=== PATIENT | female | born 1965 | race Caucasian/White ===

== ENCOUNTER 2016-10-24 16:38 | Emergency (ER) | payer MEDICARE, OTHER ==
[~2016-10-24] VITALS: Ht 172.7 cm; Wt 112.0 kg
[~2016-10-24 16:38] MED LIST: ALBU2.5V5 IH; ALBU8.5H6 IH; BUDE10.2 IH; CYCL10TA2 PO; DULO60CA44 PO; HYDR-2758 PO; MELO15TA23 PO; OMEP20CA9 PO; OMEP40CA5 PO; PRED20TA PO; TIOT18CA IH
[2016-10-24] MEDS ORDERED: IV NORMAL SALINE 1000ML BAG 1,000 ML IV SCH (17:16)
--- NOTE | 2016-10-24 17:25 | PHYS DOC ---
Past Medical History Past Medical History: Anxiety, Arthritis, Asthma, COPD, Depression, Gallstones , GERD, Hypertension Additional Past Medical Histor: DDD Past Surgical History: Cholecystectomy, Tubal ligation, Other Additional Past Surgical Histo: eye, teeth extraction Smoking: Cigarettes, Greater than 1 pack/day Alcohol Use: None Drug Use: None Adult General Chief Complaint Chief Complaint: SHORTNESS OF BREATH HPI HPI Patient is a 51 year old pleasant female with a history of COPD and asthma and a chronic smoking history who presents with shortness of breath that began several weeks ago was persistently gotten worse last 3 days. She describes tightness across her chest with a nonproductive cough no fevers no chills but has had some URI like symptoms runny nose and itching around her eyes. She has had sick contacts at home as her grandchildren but visiting with her and she is gotten progressively more short of breath despite using her albuterol nebulizer treatments at home. Last dose of prednisone was more than 6 months ago, she denies any recent travel outside the country, recent antibiotic use, recent chest pain change in medications other complaints. She denies nausea, vomiting, diarrhea. She does have a mild frontal headache that is worse with coughing and bending over. It is not new not worse of life not sudden onset in nature. She denies any focal neurologic changes, vision changes, blurred vision or problems speaking or finding words. Differential diagnosis: Acute myocardial ischemia, heart failure, cardiac tamponade, bronchospasm, pulmonary embolism, pneumothorax, pulmonary infection i.e. bronchitis or pneumonia, upper airway obstruction, anaphylaxis, aspiration , psychogenic, pulmonary contusion, toxidrome, pneumomediastinum, noncardiogenic pulmonary edema or ARDS, COPD, tuberculosis, cystic fibrosis, asthma, high altitude pulmonary edema, valvular dysfunction, cardiac dysrhythmia , stroke, neuromuscular diseases like myasthenia gravis gravis, ALS, Guillain- Nix syndrome, metabolic acidosis to include diabetic ketoacidosis, sepsis, and obstructive disorders like massive obesity As point she I will complete a cardiac workup to include EKG, troponin, CMP, CBC chest x-ray I will give her nebulizer treatments, Solu-Medrol fluids and possible antibiotics for bronchitis versus COPD exacerbation. Review of Systems Review of Systems Constitutional: Subjective fevers and chills but nothing measured Eyes: Denies change in visual acuity, redness, or eye pain [] HENT: No nasal congestion no sore throat other than with cough. Respiratory: She has a nonproductive cough and shortness of breath with exertion. Cardiovascular: No additional information not addressed in HPI [] GI: Denies abdominal pain, nausea, vomiting, bloody stools or diarrhea [] : Denies dysuria or hematuria [] Musculoskeletal: Denies back pain or joint pain [] Integument: Denies rash or skin lesions [] Neurologic: She complains of a frontal headache with no change in vision no focal weakness or sensory changes. Current Medications Current Medications Current Medications Medications (Trade) Dose Ordered Sig/Jazzy Start Time Stop Time Status Last Admin Dose Admin Albuterol Sulfate (Ventolin Neb Soln) 2.5 mg 1X ONCE 10/24/16 17:30 10/24/16 17:31 DC 10/24/16 17:41 2.5 MG Albuterol/ Ipratropium (Duoneb) 3 ml 1X ONCE 10/24/16 17:30 10/24/16 17:31 DC 10/24/16 17:41 3 ML Azithromycin (Zithromax) 500 mg 1X ONCE 10/24/16 19:30 10/24/16 19:31 Methylprednisolone Sodium Succinate (SOLU-Medrol 125MG VIAL) 125 mg 1X ONCE 10/24/16 17:30 10/24/16 17:31 DC 10/24/16 17:55 125 MG Sodium Chloride 1,000 ml @ 1,000 mls/hr Q1H 10/24/16 17:16 10/24/16 18:15 DC 10/24/16 17:56 1,000 MLS/HR Sodium Chloride (Normal Saline Flush) 10 ml 1X ONCE 10/24/16 17:30 10/24/16 17:31 DC Allergies Allergies Allergies Coded Allergies Type Severity Reaction Last Updated Verified Sulfa (Sulfonamide Antibiotics) Allergy Intermediate 05/02/15 Yes coconut oil Allergy Intermediate COCONUT 08/10/13 Yes ibuprofen Allergy Intermediate 05/02/15 Yes adhesive Adverse Reaction Mild Rash 08/10/13 Yes Physical Exam Physical Exam Constitutional: Well developed, morbidly obese female in mild respiratory distress with tachypnea greater than 24 no retractions no accessory muscle use satting 95% on 2 L nasal cannulas. HENT: Normocephalic, atraumatic, bilateral external ears normal, very dry mucous murmurings with poor dentition. Eyes: PERRLA, EOMI, conjunctiva normal, no discharge. Is mild erythema around the inferior portion of the right eyelid secondary to abrasions self infected scratching. Neck: Normal range of motion, no tenderness, supple, no stridor. [] Cardiovascular:Heart rate regular rhythm, no murmur [] Lungs & Thorax: Decreased breath sounds bilaterally with mild wheezing throughout all lung head. No rhonchi rales or crackles noted Abdomen: Bowel sounds normal, soft, no tenderness, Skin: Warm, dry, no erythema, no rash. [] Back: No tenderness, no CVA tenderness. [] Extremities: No tenderness, no cyanosis, no clubbing, ROM intact, no edema. [] Neurologic: Alert and oriented X 3, normal motor function, normal sensory function, no focal deficits noted. [] Psychologic: She is anxious but appropriate Current Patient Data Vital Signs Vital Signs Date Time Temp Pulse Resp B/P (MAP) Pulse Ox O2 Delivery O2 Flow Rate FiO2 10/24/16 18:15 92 14 153/88 (109) 10/24/16 17:52 98 Nasal Cannula 10/24/16 17:20 98.4 98.4 Lab Values Laboratory Tests Test 10/24/16 17:40 White Blood Count 18.3 x10^3/uL (4.0-11.0) H Red Blood Count 4.87 x10^6/uL (3.50-5.40) Hemoglobin 14.7 g/dL (12.0-15.5) Hematocrit 44.4 % (36.0-47.0) Mean Corpuscular Volume 91 fL (79-100) Mean Corpuscular Hemoglobin 30 pg (25-35) Mean Corpuscular Hemoglobin Concent 33 g/dL (31-37) Red Cell Distribution Width 13.6 % (11.5-14.5) Platelet Count 346 x10^3/uL (140-400) Neutrophils (%) (Auto) 62 % (31-73) Lymphocytes (%) (Auto) 31 % (24-48) Monocytes (%) (Auto) 4 % (0-9) Eosinophils (%) (Auto) 3 % (0-3) Basophils (%) (Auto) 1 % (0-3) Neutrophils # (Auto) 11.3 x10^3uL (1.8-7.7) H Lymphocytes # (Auto) 5.6 x10^3/uL (1.0-4.8) H Monocytes # (Auto) 0.6 x10^3/uL (0.0-1.1) Eosinophils # (Auto) 0.5 x10^3/uL (0.0-0.7) Basophils # (Auto) 0.2 x10^3/uL (0.0-0.2) Sodium Level 139 mmol/L (136-145) Potassium Level 3.3 mmol/L (3.5-5.1) L Chloride Level 102 mmol/L (98-107) Carbon Dioxide Level 28 mmol/L (21-32) Anion Gap 9 (6-14) Blood Urea Nitrogen 10 mg/dL (7-20) Creatinine 1.1 mg/dL (0.6-1.0) H Estimated GFR (Cockcroft-Gault) 52.2 BUN/Creatinine Ratio 9 (6-20) Glucose Level 194 mg/dL (70-99) H Calcium Level 8.9 mg/dL (8.5-10.1) Total Bilirubin 0.4 mg/dL (0.2-1.0) Aspartate Amino Transferase (AST) 32 U/L (15-37) Alanine Aminotransferase (ALT) 47 U/L (14-59) Alkaline Phosphatase 136 U/L (46-116) H Creatine Kinase 531 U/L (26-192) H Creatine Kinase MB (Mass) 2.2 ng/mL (0.0-3.6) Creatine Kinase MB Relative Index 0.4 % (0-4) Troponin I Quantitative < 0.017 ng/mL (0.000-0.055) HS-Ldw-M-Type Natriuretic Peptide 113 pg/mL (0-124) Total Protein 7.6 g/dL (6.4-8.2) Albumin 3.2 g/dL (3.4-5.0) L Albumin/Globulin Ratio 0.7 (1.0-1.7) L Laboratory Tests 10/24/16 17:40 Laboratory Tests 10/24/16 17:40 EKG EKG EKG time 1726 date 10/24/[address] Mcgee demonstrates heart rate of 92 normal sinus rhythm with some movement artifact is noted in the inferior leads there is T-wave flattening in lead 1 and lead 2 with a Q-wave possibly represent an old injury. No new ST segment or T-wave changes consistent with acute cord syndrome at this time. [] Radiology/Procedures Radiology/Procedures []x time 1732 two-view and lateral chest film date 10/24/2016 temperature is no acute infiltrate no hyperinflation, no evidence of subdiaphragmatic air no cardiomegaly no pneumothorax images read by Dr. Mcgee Course & Med Decision Making Course & Med Decision Making Pertinent Labs and Imaging studies reviewed. (See chart for details) View nursing notes which demonstrates mild relative hypoxia and tachypnea which is likely from COPD hypertension as well which is chronic for patient. Reviewed physical exam findings as well as history incorporation with laboratory work. Patient's troponin is negative patient has no evidence of congestive heart failure on physical exam or by proBNP. Patient's white blood cell count is elevated 18,000 which likely is due to stress. No obvious infiltrate on chest x- ray. []Differential diagnosis: Acute myocardial ischemia, heart failure, cardiac tamponade, bronchospasm, pulmonary embolism, pneumothorax, pulmonary infection i.e. bronchitis or pneumonia, upper airway obstruction, anaphylaxis, aspiration , psychogenic, pulmonary contusion, toxidrome, pneumomediastinum, noncardiogenic pulmonary edema or ARDS, COPD, tuberculosis, cystic fibrosis, asthma, high altitude pulmonary edema, valvular dysfunction, cardiac dysrhythmia , stroke, neuromuscular diseases like myasthenia gravis gravis, ALS, Guillain- Nix syndrome, metabolic acidosis to include diabetic ketoacidosis, sepsis, and obstructive disorders like massive obesity Answered with this patient. Patient tells me that their symptoms given during CC are improved. We reviewed labs and radiology reports with patient and any family at bedside. Time is now 6 :30 PM patient's symptoms have improved airway movement satting 98% on room air patient comfortable resting on the cot. Patient tells me that their symptoms given during CC are improved. We reviewed labs and radiology reports with patient and any family at bedside. Time is now 7 :30 PM patiently released home chest x-ray is negative. Discussed treatment plan with treatment plan to include azithromycin, albuterol, and prednisone burst with PCP follow-up in 12-24 hours. Precautions given Impression: COPD exacerbation, hypertension chronic PCP follow-up in 12-24 hours. Disposition PCP follow-up Dragon Disclaimer Dragon Disclaimer This electronic medical record was generated, in whole or in part, using a voice recognition dictation system. Departure Departure Impression: Primary Impression: COPD exacerbation Additional Impression: Hypertension Disposition: HOME, SELF-CARE Condition: IMPROVED Referrals: CESARIO MACKEY MD (PCP) Patient Instructions: Bronchitis, Chronic Obstructive Pulmonary Disease Additional Instructions: She is to follow-up with her primary care doctor in next 12-24 hours if symptoms continue. I've encouraged her to quit smoking as smoking's clinic continued to exacerbate her breathing issues. She will be provided a course of antibiotics to include azithromycin, prednisone burst, and albuterol inhaler with spacer. Problem Qualifiers CESAR MCGEE MD Oct 24, 2016 17:25
[2016-10-24] MEDS ORDERED: 0.9 % SODIUM CHLORIDE 10 ML DISP.SYRIN. IV ONE (17:30)
[2016-10-24] MEDS ORDERED: IPRATRPIUM/ALBUTEROL 0.5/2.5MG 3 ML NEBU. NEB ONE (17:30)
[2016-10-24] MEDS ORDERED: methylPREDNISolone SOD SUCC PF 125 MG/2 ML VIAL. IV ONE (17:30)
[2016-10-24] MEDS ORDERED: ALBUTEROL SULFATE 2.5 MG/3 ML NEBU. NEB ONE (17:30)
[2016-10-24 17:51] LABS: BASO # 0.2 x10^3/uL (0.0-0.2); BASO % 1 % (0-3); EOS % 3 % (0-3); HEMATOCRIT 44.4 % (36.0-47.0); HEMOGLOBIN 14.7 g/dL (12.0-15.5); LYMPH # 5.6 x10^3/uL (1.0-4.8); LYMPH % 31 % (24-48); MEAN CORPUSCULAR HEMOGLOBIN 30 pg (25-35); MEAN CORPUSCULAR HGB CONC 33 g/dL (31-37); MEAN CORPUSCULAR VOLUME 91 fL (79-100); MONO % 4 % (0-9); NEUT % 62 % (31-73); PLATELET COUNT 346 x10^3/uL (140-400); RED BLOOD COUNT 4.87 x10^6/uL (3.50-5.40); RED CELL DISTRIBUTION WIDTH 13.6 % (11.5-14.5); WHITE BLOOD COUNT 18.3 x10^3/uL (4.0-11.0)
[2016-10-24 18:10] LABS: CALCIUM 8.9 mg/dL (8.5-10.1); CREATININE 1.1 mg/dL (0.6-1.0); GFR 52.2; POTASSIUM 3.3 mmol/L (3.5-5.1)
[2016-10-24 18:15] LABS: ALBUMIN 3.2 g/dL (3.4-5.0); ALBUMIN/GLOBULIN RATIO 0.7 (1.0-1.7); TOTAL BILIRUBIN 0.4 mg/dL (0.2-1.0); TOTAL PROTEIN 7.6 g/dL (6.4-8.2)
[2016-10-24 18:33] LABS: CKMB MASS 2.2 ng/mL (0.0-3.6)
[2016-10-24] MEDS ORDERED: AZITHROMYCIN 250 MG TABLET. PO ONE (19:30)
[2016-10-24 20:01] VITALS: BP 140/74
[2016-10-24 20:02] LABS: OBC FLU VALID
--- NOTE | 2016-10-25 07:36 | EKG ---
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
--- NOTE | 2016-10-25 07:56 | RAD ---
Indication: Cough and shortness of breath. Time of exam 1732 hours. Correlation is made with prior chest from 04/29/2015. FINDINGS: The heart size is normal. The lungs are clear. No pleural effusion or pneumothorax is identified. The pulmonary vascularity is normal. IMPRESSION: No acute abnormality detected.
== END 2016-10-24 20:01 | disposition home or self-care (01) ==
LOC: ER 16:38
DX: J44.1 Chronic obstructive pulmonary disease with (acute) exacerbation (principal); I10 Essential (primary) hypertension; F41.9 Anxiety disorder, unspecified; K21.9 Gastro-esophageal reflux disease without esophagitis; F32.9 Major depressive disorder, single episode, unspecified; M19.90 Unspecified osteoarthritis, unspecified site; F17.210 Nicotine dependence, cigarettes, uncomplicated; Z90.49 Acquired absence of other specified parts of digestive tract; Z98.51 Tubal ligation status; Z88.2 Allergy status to sulfonamides; Z91.048 Other nonmedicinal substance allergy status; Z88.8 Allergy status to other drugs, medicaments and biological substances; Z88.6 Allergy status to analgesic agent
CPT/HCPCS: 36415; 71020; 80053; 82553; 83880; 84484; 85027; 87804; 93005; 94250; 94640; 96361; 96374; 99285; J2930; J7030; J7620; Q0144

== ENCOUNTER 2017-02-24 22:28 | Emergency (ER) | payer MEDICARE ==
[~2017-02-24] VITALS: Ht 167.6 cm; Wt 112.0 kg
--- NOTE | 2017-02-24 23:09 | PHYS DOC ---
Past Medical History Past Medical History: COPD, GERD, Other Additional Past Medical Histor: chronic pain Past Surgical History: Tubal ligation Additional Past Surgical Histo: eye, teeth extraction Alcohol Use: None Drug Use: Marijuana Adult General Chief Complaint Chief Complaint: FLANK PAIN HPI HPI Patient is a 52 year old female who presents with complaints of left flank pain that radiates to her left mid abdomen. Patient also describes foul- smelling urine. She denies any chills, fevers, rashes. Patient denies any trauma or sick contacts. Patient has chronic back pain but states this pain is different than others. Patient denies any incontinence, retention, saddle anesthesia. Review of Systems Review of Systems Constitutional: Denies fever or chills [] HENT: Denies nasal congestion or sore throat [] Respiratory: Denies cough or shortness of breath [] Cardiovascular: No chest pain GI: Left flank pain that radiates to left mid abdomen. No vomiting, no diarrhea : Denies dysuria or hematuria. Yes to foul-smelling urine Musculoskeletal: Yes to left back pain Integument: Denies rash or skin lesions [] Neurologic: Denies headache, focal weakness or sensory changes [] Current Medications Current Medications Current Medications Medications (Trade) Dose Ordered Sig/Jazzy Start Time Stop Time Status Last Admin Dose Admin Ceftriaxone Sodium 1 gm/ Sodium Chloride 50 ml @ 100 mls/hr Q24H 02/25/17 00:15 UNV Fentanyl Citrate (Fentanyl 2ml Vial) 75 mcg 1X ONCE 02/24/17 23:15 02/24/17 23:16 DC 02/25/17 00:01 75 MCG Ketorolac Tromethamine (Toradol) 15 mg 1X ONCE 02/24/17 23:15 02/24/17 23:16 DC Allergies Allergies Allergies Coded Allergies Type Severity Reaction Last Updated Verified Sulfa (Sulfonamide Antibiotics) Allergy Intermediate 05/02/15 Yes coconut oil Allergy Intermediate COCONUT 08/10/13 Yes ibuprofen Allergy Intermediate 05/02/15 Yes adhesive Adverse Reaction Mild Rash 08/10/13 Yes Physical Exam Physical Exam Constitutional: Well developed, well nourished, mild distress, non-toxic appearance. [] HENT: Normocephalic, atraumatic, , oropharynx dry, no oral exudates, nose normal. [] Eyes: EOMI, conjunctiva normal, no discharge. [] Neck: Normal range of motion, no tenderness, trachea midline, no stridor. [] Cardiovascular:Heart rate regular rhythm, no murmur, equal pulses, normal perfusion Lungs & Thorax: Bilateral breath sounds clear to auscultation, no tachypnea Abdomen: Bowel sounds normal, soft, no tenderness, no masses, no pulsatile masses. [] Skin: Warm, dry, no erythema, no rash. [] Back: No tenderness. mild left CVA tenderness. [] Extremities: No tenderness, no cyanosis,, ROM intact, no edema. [] Neurologic: Alert and oriented X 3, normal motor function, ambulates in the ED with normal gait and without assistance, no focal deficits noted. [] Psychologic: Affect normal, judgement normal, mood normal. [] Current Patient Data Vital Signs Vital Signs Date Time Temp Pulse Resp B/P (MAP) Pulse Ox O2 Delivery O2 Flow Rate FiO2 02/25/17 00:01 18 97 02/24/17 22:40 98.3 85 109/64 (79) Room Air 98.3 Lab Values Laboratory Tests Test 02/24/17 22:45 02/24/17 23:16 Urine Collection Type Unknown Urine Color Yellow Urine Clarity Clear Urine pH 6.0 Urine Specific [place] 1.020 Urine Protein Negative mg/dL (NEG-TRACE) Urine Glucose (UA) Negative mg/dL (NEG) Urine Ketones (Stick) Negative mg/dL (NEG) Urine Blood Trace (NEG) Urine Nitrite Positive (NEG) Urine Bilirubin Negative (NEG) Urine Urobilinogen Dipstick 0.2 mg/dL (0.2 mg/dL) Urine Leukocyte Esterase Moderate (NEG) Urine RBC 1-2 /HPF (0-2) Urine WBC 20-40 /HPF (0-4) Urine Squamous Epithelial Cells Few /LPF Urine Bacteria Many /HPF (0-FEW) Urine Mucus Mod /LPF White Blood Count 16.6 x10^3/uL (4.0-11.0) H Red Blood Count 5.22 x10^6/uL (3.50-5.40) Hemoglobin 16.0 g/dL (12.0-15.5) H Hematocrit 47.3 % (36.0-47.0) H Mean Corpuscular Volume 91 fL (79-100) Mean Corpuscular Hemoglobin 31 pg (25-35) Mean Corpuscular Hemoglobin Concent 34 g/dL (31-37) Red Cell Distribution Width 14.0 % (11.5-14.5) Platelet Count 402 x10^3/uL (140-400) H Neutrophils (%) (Auto) 53 % (31-73) Lymphocytes (%) (Auto) 38 % (24-48) Monocytes (%) (Auto) 4 % (0-9) Eosinophils (%) (Auto) 4 % (0-3) H Basophils (%) (Auto) 0 % (0-3) Neutrophils # (Auto) 8.8 x10^3uL (1.8-7.7) H Lymphocytes # (Auto) 6.3 x10^3/uL (1.0-4.8) H Monocytes # (Auto) 0.7 x10^3/uL (0.0-1.1) Eosinophils # (Auto) 0.7 x10^3/uL (0.0-0.7) Basophils # (Auto) 0.1 x10^3/uL (0.0-0.2) Sodium Level 140 mmol/L (136-145) Potassium Level 3.6 mmol/L (3.5-5.1) Chloride Level 101 mmol/L (98-107) Carbon Dioxide Level 35 mmol/L (21-32) H Anion Gap 4 (6-14) L Blood Urea Nitrogen 10 mg/dL (7-20) Creatinine 0.9 mg/dL (0.6-1.0) Estimated GFR (Cockcroft-Gault) 65.5 Glucose Level 118 mg/dL (70-99) H Calcium Level 9.2 mg/dL (8.5-10.1) Laboratory Tests 02/24/17 23:16 Laboratory Tests 02/24/17 23:16 EKG EKG [] Radiology/Procedures Radiology/Procedures CT: Enlarged liver with diffuse fatty infiltration. No renal calculi or evidence of obstructive uropathy.[] Course & Med Decision Making Course & Med Decision Making Pertinent Labs and Imaging studies reviewed. (See chart for details) 0020 patient in no distress, patient agrees to follow-up as directed. Patient has been made aware productive findings and CT as well as labs. Patient has been provided with tobacco cessation counseling, total time 3 minutes. Risk and benefits explained. [] Dragon Disclaimer Dragon Disclaimer This electronic medical record was generated, in whole or in part, using a voice recognition dictation system. Departure Departure Impression: Primary Impression: Pyelonephritis Additional Impressions: Fatty liver Tobacco abuse Tobacco abuse counseling Disposition: HOME, SELF-CARE Condition: STABLE Referrals: CESARIO MACKEY MD (PCP) Please follow-up in 3-5 days Patient Instructions: Pyelonephritis, Adult, Smoking Hazards Scripts Metoclopramide Hcl (REGLAN) 10 Mg Tablet 1 TAB PO TID Y for NAUSEA, #10 TAB Prov: Chloe MCKINNEY MD 02/25/17 Ciprofloxacin Hcl (CIPRO) 500 Mg Tablet 1 TAB PO BID, #20 TAB Prov: Chloe MCKINNEY MD 02/25/17 Problem Qualifiers Chloe MCKINNEY MD Feb 24, 2017 23:09
[2017-02-24 23:15] LABS: BILIRUBIN,URINE NEGATIVE (NEG); GLUCOSE,URINE NEGATIVE (NEG); NITRITE,URINE POSITIVE (NEG); PROTEIN,URINE NEGATIVE (NEG-TRACE); UROBILINOGEN,URINE 0.2 mg/dL (0.2 mg/dL)
[2017-02-24] MEDS ORDERED: fentaNYL PF VIAL 100 MCG/2 ML VIAL IV ONE (23:15)
[2017-02-24] MEDS ORDERED: KETOROLAC 15 MG/ML VIAL. IV ONE (23:15)
[2017-02-24 23:25] LABS: WBC,URINE 20-40 /HPF (0-4)
[2017-02-24 23:26] LABS: BACTERIA,URINE MANY /HPF (0-FEW); SQUAMOUS EPITHELIAL CELL,UR FEW /LPF
[2017-02-24 23:28] LABS: BASO # 0.1 x10^3/uL (0.0-0.2); BASO % 0 % (0-3); EOS % 4 % (0-3); HEMATOCRIT 47.3 % (36.0-47.0); LYMPH # 6.3 x10^3/uL (1.0-4.8); LYMPH % 38 % (24-48); MEAN CORPUSCULAR HEMOGLOBIN 31 pg (25-35); MEAN CORPUSCULAR HGB CONC 34 g/dL (31-37); MEAN CORPUSCULAR VOLUME 91 fL (79-100); MONO % 4 % (0-9); NEUT % 53 % (31-73); PLATELET COUNT 402 x10^3/uL (140-400); RED BLOOD COUNT 5.22 x10^6/uL (3.50-5.40); WHITE BLOOD COUNT 16.6 x10^3/uL (4.0-11.0)
[2017-02-24 23:36] LABS: CALCIUM 9.2 mg/dL (8.5-10.1); CREATININE 0.9 mg/dL (0.6-1.0); GFR 65.5; POTASSIUM 3.6 mmol/L (3.5-5.1)
--- NOTE | 2017-02-24 23:42 | RAD ---
CT abdomen and pelvis without contrast: Reason for examination: Left flank and abdominal pain. Helical images were obtained through the abdomen and pelvis with no intravenous or oral contrast administered. Reconstruction was performed in sagittal and coronal planes. Exposure: One or more of the following individualized dose reduction techniques were utilized for this examination: 1. Automated exposure control 2. Adjustment of the mA and/or kV according to patient size 3. Use of iterative reconstruction technique. The lung bases are clear. The heart size is normal with no pericardial effusion seen. The liver appears to be enlarged at 21.5 cm and shows diffuse fatty infiltration without a focal lesion. The gallbladder surgically absent. No abnormality seen at the spleen, adrenal glands or pancreas. The abdominal aorta and inferior vena cava show no abnormalities. The kidneys show no renal masses, renal calculi, hydronephrosis or evidence of obstructive uropathy. The intestinal tract shows no abnormally dilated loops of bowel or thickened bowel dodd. There is no evidence of diverticulosis or diverticulitis. No abnormality seen at the stomach. The bladder is not distended. No abnormality seen at the uterus or ovaries. No free fluid or free air is seen in the abdomen or pelvis. There are some degenerative changes in the spine but no acute bony abnormality seen. IMPRESSION: Enlarged liver with diffuse fatty infiltration. No renal calculi or evidence of obstructive uropathy. Electronically signed by: Bianka Nixon MD (02/24/2017 11:39 PM) [id number]
[2017-02-25] MEDS ORDERED: METO10TA81 PO (00:27)
[2017-02-25] MEDS ORDERED: CIPR500T94 PO (00:27)
[2017-02-25 01:37] VITALS: BP 132/77
== END 2017-02-25 01:43 | disposition home or self-care (01) ==
LOC: ER 22:28
DX: N12 Tubulo-interstitial nephritis, not specified as acute or chronic (principal); K76.0 Fatty (change of) liver, not elsewhere classified; K21.9 Gastro-esophageal reflux disease without esophagitis; J44.9 Chronic obstructive pulmonary disease, unspecified; G89.29 Other chronic pain; Z90.49 Acquired absence of other specified parts of digestive tract; F17.200 Nicotine dependence, unspecified, uncomplicated; Z98.51 Tubal ligation status; Z88.2 Allergy status to sulfonamides; Z88.8 Allergy status to other drugs, medicaments and biological substances; Z91.018 Allergy to other foods
CPT/HCPCS: 36415; 74176; 80048; 81001; 85025; 87086; 96365; 96375; 99285; J0696; J1885; J3010

== ENCOUNTER 2017-04-03 16:48 | Emergency (ER) | payer MEDICARE ==
[~2017-04-03] VITALS: Ht 170.2 cm; Wt 107.5 kg
[~2017-04-03 16:48] MED LIST changes: +CIPR500T94 PO; +METO10TA81 PO
[2017-04-03] MEDS ORDERED: IPRATRPIUM/ALBUTEROL 0.5/2.5MG 3 ML NEBU. NEB ONE (17:15)
[2017-04-03] MEDS ORDERED: methylPREDNISolone SOD SUCC PF 125 MG/2 ML VIAL. IV ONE (17:15)
[2017-04-03 17:20] LABS: BASO # 0.3 x10^3/uL (0.0-0.2); BASO % 2 % (0-3); EOS % 4 % (0-3); HEMOGLOBIN 16.2 g/dL (12.0-15.5); LYMPH # 4.4 x10^3/uL (1.0-4.8); LYMPH % 31 % (24-48); MEAN CORPUSCULAR HEMOGLOBIN 31 pg (25-35); MEAN CORPUSCULAR HGB CONC 34 g/dL (31-37); MEAN CORPUSCULAR VOLUME 91 fL (79-100); MONO % 4 % (0-9); NEUT % 60 % (31-73); PLATELET COUNT 377 x10^3/uL (140-400); RED BLOOD COUNT 5.19 x10^6/uL (3.50-5.40); RED CELL DISTRIBUTION WIDTH 13.7 % (11.5-14.5); WHITE BLOOD COUNT 14.1 x10^3/uL (4.0-11.0)
[2017-04-03 17:27] VITALS: BP 125/73
[2017-04-03 17:32] LABS: CALCIUM 8.7 mg/dL (8.5-10.1); POTASSIUM 3.6 mmol/L (3.5-5.1)
[2017-04-03 17:37] LABS: ALBUMIN 3.3 g/dL (3.4-5.0); ALBUMIN/GLOBULIN RATIO 0.7 (1.0-1.7); TOTAL BILIRUBIN 0.4 mg/dL (0.2-1.0)
[2017-04-03] MEDS ORDERED: PRED20TA PO (18:05)
[2017-04-03] MEDS ORDERED: AZIT250T6 PO (18:05)
--- NOTE | 2017-04-03 18:06 | PHYS DOC ---
Past Medical History Past Medical History: COPD, GERD, Other Additional Past Medical Histor: chronic pain Past Surgical History: Tubal ligation Additional Past Surgical Histo: eye, teeth extraction Alcohol Use: Occasionally Drug Use: Marijuana Adult General Chief Complaint Chief Complaint: COUGH HPI HPI Patient is a 52 year old female with a history of COPD who presents with increasing cough and shortness of air for 1-2 days. Patient attributes this to being out in the cold air yesterday. Patient has felt hot and cold but has not had a measured fever. She has a nebulizer at home and takes albuterol treatments , she has taken about 8 of them today. She also takes a steroid inhaler. She has not been on oral steroids lately. Her last antibiotic was appropriate. Patient continues to smoke. Her primary care doctor is Dr. Cesario Fernandez. Review of Systems Review of Systems Constitutional: She has felt hot and cold HENT: Denies nasal congestion or sore throat [] Respiratory: As in history of present illness Cardiovascular: Denies cardiac sounding chest pain GI: Denies abdominal pain, nausea, vomiting, bloody stools or diarrhea [] All other systems were reviewed and found to be within normal limits, except as documented in this note. Current Medications Current Medications Current Medications Medications (Trade) Dose Ordered Sig/Jazzy Start Time Stop Time Status Last Admin Dose Admin Albuterol/ Ipratropium (Duoneb) 3 ml 1X ONCE 04/03/17 17:15 04/03/17 17:16 DC 04/03/17 17:26 3 ML Methylprednisolone Sodium Succinate (SOLU-Medrol 125MG VIAL) 60 mg 1X ONCE 04/03/17 17:15 04/03/17 17:16 DC 04/03/17 17:19 60 MG Allergies Allergies Allergies Coded Allergies Type Severity Reaction Last Updated Verified Sulfa (Sulfonamide Antibiotics) Allergy Intermediate 05/02/15 Yes coconut oil Allergy Intermediate COCONUT 08/10/13 Yes ibuprofen Allergy Intermediate 05/02/15 Yes adhesive Adverse Reaction Mild Rash 08/10/13 Yes Physical Exam Physical Exam Constitutional: Well developed, well nourished, no acute distress, non-toxic appearance. Talking in complete sentences but does appear slightly dyspneic. Pulse ox on room air 94-95%. Vital signs stable. HENT: Normocephalic, atraumatic, bilateral external ears normal, nose normal. [ ] Eyes: conjunctiva normal, no discharge. [] Neck: Normal range of motion, no stridor. [] Cardiovascular:Heart rate regular rhythm, no murmur [] Lungs & Thorax: Breath sounds present bilaterally. Expiratory wheezes present throughout. Prolonged expiratory phase. Good air movement throughout. Skin: Warm, dry, no erythema, no rash. [] Extremities: No tenderness, no cyanosis, no clubbing, ROM intact, no edema. [] Neurologic: Alert and oriented X 3, normal motor function, no focal deficits noted. [] Current Patient Data Vital Signs Vital Signs Date Time Temp Pulse Resp B/P (MAP) Pulse Ox O2 Delivery O2 Flow Rate FiO2 04/03/17 17:29 96 Room Air 04/03/17 17:27 99 23 125/73 (90) 04/03/17 17:03 98.7 98.7 Lab Values Laboratory Tests Test 04/03/17 17:10 White Blood Count 14.1 x10^3/uL (4.0-11.0) H Red Blood Count 5.19 x10^6/uL (3.50-5.40) Hemoglobin 16.2 g/dL (12.0-15.5) H Hematocrit 47.0 % (36.0-47.0) Mean Corpuscular Volume 91 fL (79-100) Mean Corpuscular Hemoglobin 31 pg (25-35) Mean Corpuscular Hemoglobin Concent 34 g/dL (31-37) Red Cell Distribution Width 13.7 % (11.5-14.5) Platelet Count 377 x10^3/uL (140-400) Neutrophils (%) (Auto) 60 % (31-73) Lymphocytes (%) (Auto) 31 % (24-48) Monocytes (%) (Auto) 4 % (0-9) Eosinophils (%) (Auto) 4 % (0-3) H Basophils (%) (Auto) 2 % (0-3) Neutrophils # (Auto) 8.4 x10^3uL (1.8-7.7) H Lymphocytes # (Auto) 4.4 x10^3/uL (1.0-4.8) Monocytes # (Auto) 0.5 x10^3/uL (0.0-1.1) Eosinophils # (Auto) 0.5 x10^3/uL (0.0-0.7) Basophils # (Auto) 0.3 x10^3/uL (0.0-0.2) H Sodium Level 139 mmol/L (136-145) Potassium Level 3.6 mmol/L (3.5-5.1) Chloride Level 101 mmol/L (98-107) Carbon Dioxide Level 31 mmol/L (21-32) Anion Gap 7 (6-14) Blood Urea Nitrogen 9 mg/dL (7-20) Creatinine 1.0 mg/dL (0.6-1.0) Estimated GFR (Cockcroft-Gault) 58.0 BUN/Creatinine Ratio 9 (6-20) Glucose Level 134 mg/dL (70-99) H Calcium Level 8.7 mg/dL (8.5-10.1) Total Bilirubin 0.4 mg/dL (0.2-1.0) Aspartate Amino Transferase (AST) 25 U/L (15-37) Alanine Aminotransferase (ALT) 42 U/L (14-59) Alkaline Phosphatase 137 U/L (46-116) H Total Protein 8.0 g/dL (6.4-8.2) Albumin 3.3 g/dL (3.4-5.0) L Albumin/Globulin Ratio 0.7 (1.0-1.7) L Laboratory Tests 04/03/17 17:10 Laboratory Tests 04/03/17 17:10 EKG EKG [] Radiology/Procedures Radiology/Procedures One view portable chest x-ray read by the radiologist. No acute findings.[] Course & Med Decision Making Course & Med Decision Making Pertinent Labs and Imaging studies reviewed. (See chart for details) 52-year-old female, smoker, with a history of COPD, presents with increasing shortness of air and cough for 1-2 days. On my original assessment, the patient clearly stated that she does not want to be admitted. If this was Wednesday, she would have waited until tomorrow to see her primary care doctor, she stated, but it is Wednesday so she doesn't think she wants to wait that long. Patient has not recently had antibiotics and has not recently had oral steroids. She would like to try both. She does have a nebulizer at home and she has albuterol for her nebulizer. Patient was given a nebulized DuoNeb treatment. She was given a dose of IV Solu- Medrol. She remained stable, and feeling a little bit better. Recheck, she still wants to be discharged to home. See instructions for plan. [] Zo Disclaimer Dragon Disclaimer This electronic medical record was generated, in whole or in part, using a voice recognition dictation system. Departure Departure Impression: Primary Impression: COPD exacerbation Disposition: HOME, SELF-CARE Condition: IMPROVED Referrals: CESARIO FERNANDEZ MD (PCP) Patient Instructions: Chronic Obstructive Pulmonary Disease Exacerbation, Easy- to-Read, Smoking, You Can Quit, [id number] Additional Instructions: As we discussed, if you could quit smoking, that would help your lungs slight off infection. Talk to your doctor about this. Stay inside out of the cold air. Drink plenty of fluids. Continue to use your steroid inhaler and also take breathing treatments regularly. Prednisone dose as follows: Wednesday night, ton 20 mg 20 mg every morning and every night for 4 more days, Wednesday, Wednesday, Wednesday, Wednesday 20 mg every morning and 10 mg every night for 2 more days, and Wednesday 10 mg in the morning and 10 mg at night for 2 more days, Wednesday and Wednesday 10 mg in the morning only for the last 2 days, Wednesday and Wednesday Scripts Azithromycin (AZITHROMYCIN TABLET) 250 Mg Tablet 1 PKG PO UD for copd excaerbation, #6 TAB Prov: TRENTON CAGE MD 04/03/17 Prednisone (PREDNISONE) 20 Mg Tablet 20 MG PO BID for copd exacerbation for 10 Days, #40 TAB Taper as directed on instructions 20 mg Wednesday night 40 mg a day, divided, for 4 days 30 mg a day, divided, for 2 days 20 mg a day, divided, for 2 days 10 mg a day for 2 days Prov: TRENTON CAGE MD 04/03/17 TRENTON CAGE MD Apr 03, 2017 18:06
--- NOTE | 2017-04-04 08:01 | RAD ---
EXAM: Chest, single view. HISTORY: Productive cough. COMPARISON: 10/24/2016. FINDINGS: A frontal view of the chest is obtained. There is no infiltrate, effusion or pneumothorax. The heart is normal in size. IMPRESSION: No acute pulmonary finding.
[2017-04-04] MEDS ORDERED: METF500T4 PO (11:59)
[2017-04-04] MEDS ORDERED: HYDR-2762 PO (11:59)
== END 2017-04-03 18:27 | disposition home or self-care (01) ==
LOC: ER 16:48
DX: J44.1 Chronic obstructive pulmonary disease with (acute) exacerbation (principal); K21.9 Gastro-esophageal reflux disease without esophagitis; G89.29 Other chronic pain; Z98.51 Tubal ligation status; Z88.2 Allergy status to sulfonamides; Z88.8 Allergy status to other drugs, medicaments and biological substances; Z91.018 Allergy to other foods
CPT/HCPCS: 36415; 71010; 80053; 85025; 94250; 94640; 96374; 99285; J2930; J7620

== ENCOUNTER 2017-04-04 08:17 | Inpatient (IN) | payer MEDICARE ==
[~2017-04-04] VITALS: Ht 170.2 cm; Wt 109.9 kg
[~2017-04-04 08:17] MED LIST changes: +AZIT250T6 PO
--- NOTE | 2017-04-04 08:37 | PHYS DOC ---
Past Medical History Past Medical History: COPD, GERD, Other Additional Past Medical Histor: chronic pain Past Surgical History: Tubal ligation Additional Past Surgical Histo: eye, teeth extraction Alcohol Use: Occasionally Drug Use: Marijuana Adult General Chief Complaint Chief Complaint: SHORTNESS OF BREATH HPI HPI Patient is a 52 year old F who presents with shortness of breath and wheezing. Patient has a known history of COPD with significant smoking and was seen here last night for a COPD exacerbation and discharged home. Patient returns this morning for worsening shortness of breath and wheezing. Patient states she's been doing her nebulizer treatments at home however this morning she was having more difficulty breathing. Patient denies any fevers. Patient denies any chest pain. Patient does have a productive cough with clear mucus. Patient denies any nausea/vomiting/diarrhea. Patient has no other complaints. Review of Systems Review of Systems GEN: Denies fevers, chills, sweats HEENT: Denies blurred vision, sore throat CV: Denies chest pain RESP: Wheezing GI: Denies n/v/d NEURO: Denies confusion, dizziness MSK: Denies weakness, joint pain/swelling All other systems were reviewed and found to be within normal limits, except as documented in this note. Current Medications Current Medications Current Medications Medications (Trade) Dose Ordered Sig/Jazzy Start Time Stop Time Status Last Admin Dose Admin Albuterol/ Ipratropium (Duoneb) 3 ml 1X ONCE 04/04/17 08:45 04/04/17 08:46 DC 04/04/17 09:18 3 ML Dexamethasone Sodium Phosphate (Decadron) 10 mg 1X ONCE 04/04/17 08:45 04/04/17 08:46 DC 04/04/17 08:53 10 MG Allergies Allergies Allergies Coded Allergies Type Severity Reaction Last Updated Verified Sulfa (Sulfonamide Antibiotics) Allergy Intermediate 05/02/15 Yes coconut oil Allergy Intermediate COCONUT 08/10/13 Yes ibuprofen Allergy Intermediate 05/02/15 Yes adhesive Adverse Reaction Mild Rash 08/10/13 Yes Physical Exam Physical Exam GEN.: mild distress. Alert and oriented. HEENT: Head is normocephalic, atraumatic NECK: Supple. LUNGS: Tachypnea, wheezing bilaterally. HEART: Tachycardia, S1, S2 present. Peripheral pulses intact ABDOMEN: Soft, nontender. Positive bowel sounds. EXTREMITIES: Without any cyanosis. NEUROLOGIC: Normal speech, normal tone PSYCHIATRIC: Normal affect, normal mood. SKIN: No ulcerations Current Patient Data Vital Signs Vital Signs Date Time Temp Pulse Resp B/P (MAP) Pulse Ox O2 Delivery O2 Flow Rate FiO2 04/04/17 09:25 110 22 120/68 (85) 94 Room Air 04/04/17 08:25 97.7 97.7 Lab Values Laboratory Tests Test 04/04/17 08:30 White Blood Count 22.7 x10^3/uL (4.0-11.0) H Red Blood Count 5.56 x10^6/uL (3.50-5.40) H Hemoglobin 16.9 g/dL (12.0-15.5) H Hematocrit 50.9 % (36.0-47.0) H Mean Corpuscular Volume 92 fL (79-100) Mean Corpuscular Hemoglobin 30 pg (25-35) Mean Corpuscular Hemoglobin Concent 33 g/dL (31-37) Red Cell Distribution Width 13.9 % (11.5-14.5) Platelet Count 441 x10^3/uL (140-400) H Neutrophils (%) (Auto) 90 % (31-73) H Lymphocytes (%) (Auto) 8 % (24-48) L Monocytes (%) (Auto) 2 % (0-9) Eosinophils (%) (Auto) 0 % (0-3) Basophils (%) (Auto) 0 % (0-3) Neutrophils # (Auto) 20.4 x10^3uL (1.8-7.7) H Lymphocytes # (Auto) 1.7 x10^3/uL (1.0-4.8) Monocytes # (Auto) 0.5 x10^3/uL (0.0-1.1) Eosinophils # (Auto) 0.0 x10^3/uL (0.0-0.7) Basophils # (Auto) 0.1 x10^3/uL (0.0-0.2) Segmented Neutrophils % 92 % (35-66) H Band Neutrophils % 2 % (0-9) Lymphocytes % 4 % (24-48) L Monocytes % 2 % (0-10) Platelet Estimate Adequate (ADEQUATE) Sodium Level 139 mmol/L (136-145) Potassium Level 4.1 mmol/L (3.5-5.1) Chloride Level 99 mmol/L (98-107) Carbon Dioxide Level 27 mmol/L (21-32) Anion Gap 13 (6-14) Blood Urea Nitrogen 10 mg/dL (7-20) Creatinine 1.2 mg/dL (0.6-1.0) H Estimated GFR (Cockcroft-Gault) 47.0 BUN/Creatinine Ratio 8 (6-20) Glucose Level 196 mg/dL (70-99) H Calcium Level 9.8 mg/dL (8.5-10.1) Total Bilirubin 0.5 mg/dL (0.2-1.0) Aspartate Amino Transferase (AST) 33 U/L (15-37) Alanine Aminotransferase (ALT) 52 U/L (14-59) Alkaline Phosphatase 143 U/L (46-116) H Troponin I Quantitative < 0.017 ng/mL (0.000-0.055) Total Protein 8.9 g/dL (6.4-8.2) H Albumin 3.7 g/dL (3.4-5.0) Albumin/Globulin Ratio 0.7 (1.0-1.7) L Laboratory Tests 04/04/17 08:30 Laboratory Tests 04/04/17 08:30 EKG EKG 1041: EKG shows sinus tach rate of 120 no STEMI[] Radiology/Procedures Radiology/Procedures Chest x-ray NAD[] Course & Med Decision Making Course & Med Decision Making Pertinent Labs and Imaging studies reviewed. (See chart for details) ED course: Patient was seen and examined emergency room chest x-ray and breathing treatments and steroids were ordered for the patient 1000: On reexamination patient still wheezing and tachypnea And she went to stay in the hospital and does not feel she go home 1007: Discussed CC/HP/PMH with Dr. Echavarria and recommends admit [] MDM: After reviewing the chart, CC/HPI/PMH, physical exam, [lab results], [ radiological results], I believe the patient having an acute COPD exacerbation elevated admitted for persistent wheezing. Patient has elevated white count of 22 however has been on recent steroids and at this time I see no signs of acute infectious bacteria process warranting antibiotics. We'll continue to observe the patient however I will not start antibiotics at this time. Patient has no signs or symptoms of pneumonia. [] Dragon Disclaimer Dragon Disclaimer This electronic medical record was generated, in whole or in part, using a voice recognition dictation system. Departure Departure Impression: Primary Impression: COPD exacerbation Disposition: ADMITTED INPATIENT Admitting Physician: Other (Dr. Andres) Condition: STABLE Referrals: CESARIO MACKEY MD (PCP) STEWART THURMAN DO Apr 04, 2017 08:37
[2017-04-04] MEDS ORDERED: DEXAMETHASONE SOD PHOS 4 MG/ML VIAL IV ONE (08:45)
[2017-04-04] MEDS ORDERED: IPRATRPIUM/ALBUTEROL 0.5/2.5MG 3 ML NEBU. NEB ONE (08:45)
--- NOTE | 2017-04-04 08:55 | RAD ---
EXAM: Chest, 2 views. HISTORY: Cough. COMPARISON: 04/03/2017. FINDINGS: Frontal and lateral views of the chest are obtained. There is no infiltrate, effusion or pneumothorax. The heart is normal in size. IMPRESSION: No acute pulmonary finding.
[2017-04-04 10:10] LABS: BASO # 0.1 x10^3/uL (0.0-0.2); BASO % 0 % (0-3); EOS % 0 % (0-3); HEMATOCRIT 50.9 % (36.0-47.0); HEMOGLOBIN 16.9 g/dL (12.0-15.5); LYMPH # 1.7 x10^3/uL (1.0-4.8); LYMPH % 8 % (24-48); MEAN CORPUSCULAR HEMOGLOBIN 30 pg (25-35); MEAN CORPUSCULAR HGB CONC 33 g/dL (31-37); MEAN CORPUSCULAR VOLUME 92 fL (79-100); MONO % 2 % (0-9); NEUT % 90 % (31-73); PLATELET COUNT 441 x10^3/uL (140-400); RED BLOOD COUNT 5.56 x10^6/uL (3.50-5.40); RED CELL DISTRIBUTION WIDTH 13.9 % (11.5-14.5); WHITE BLOOD COUNT 22.7 x10^3/uL (4.0-11.0)
[2017-04-04] MEDS ORDERED: ONDANSETRON PF 4 MG/2 ML VIAL. IV PRN (10:15)
[2017-04-04] MEDS ORDERED: ACETAMINOPHEN 325 MG TABLET. PO PRN (10:15)
[2017-04-04] MEDS ORDERED: fentaNYL PF VIAL 100 MCG/2 ML VIAL IV PRN (10:15)
[2017-04-04 10:17] LABS: CALCIUM 9.8 mg/dL (8.5-10.1); CREATININE 1.2 mg/dL (0.6-1.0); POTASSIUM 4.1 mmol/L (3.5-5.1)
[2017-04-04 10:24] LABS: ALBUMIN 3.7 g/dL (3.4-5.0); ALBUMIN/GLOBULIN RATIO 0.7 (1.0-1.7); TOTAL BILIRUBIN 0.5 mg/dL (0.2-1.0); TOTAL PROTEIN 8.9 g/dL (6.4-8.2)
--- NOTE | 2017-04-04 10:54 | EKG ---
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
[2017-04-04 10:55] LABS: PLT ESTIMATE ADEQUATE (ADEQUATE)
[2017-04-04 11:51] VITALS: BP 106/72
[2017-04-04 11:54] VITALS: BP 106/72
[2017-04-04] MEDS ORDERED: HYDR-2762 PO (11:59)
[2017-04-04] MEDS ORDERED: METF500T4 PO (11:59)
[2017-04-04] MEDS ORDERED: IPRATRPIUM/ALBUTEROL 0.5/2.5MG 3 ML NEBU. NEB SCH (12:00)
[2017-04-04] MEDS ORDERED: DEXTROSE 50% 25 GM / 50ML DISP.SYRIN. IV PRN (12:15)
[2017-04-04] MEDS: ALBUTEROL SULFATE 2.5 MG/3 ML NEBU. NEB SCH ×3 (12:30→20:43)
[2017-04-04] MEDS: CYCLOBENZAPRINE 10 MG TABLET. PO SCH ×2 (13:28→21:16)
[2017-04-04] MEDS: PANTOPRAZOLE 40 MG TABLET.DR. PO SCH (13:28)
[2017-04-04] MEDS: HYDROcodone/APAP 7.5/325MG 1 TAB TABLET PO SCH ×2 (13:28→21:17)
[2017-04-04] MEDS: methylPREDNISolone SOD SUCC PF 40 MG/ML VIAL. IV SCH ×2 (13:28→21:18)
[2017-04-04] MEDS: DULoxetine HCL 30 MG CAPSULE.DR PO SCH (13:28)
[2017-04-04] MEDS: DOXYCYCLINE HYCLATE 100 MG TABLET PO SCH ×2 (13:28→21:16)
[2017-04-04] MEDS: POTASSIUM CL 20MEQ D5-0.45NACL 1,000 ML IV SCH (13:29)
[2017-04-04] MEDS: cefTRIAXone IV Push 1 GM VIAL. IVP SCH (13:43)
[2017-04-04 15:22] VITALS: BP 145/67
--- NOTE | 2017-04-04 16:32 | PDOC1 ---
History and Physical Date of Admission Date of Admission 04/04/17 Identification/Chief Complaint Chief Complaint SOB Problems: Source Source: Chart review, Patient History of Present Illness History of Present Illness Patient is a 52 year old F who presents with shortness of breath and wheezing. Patient has a known history of COPD with significant smoking and was seen here last night for a COPD exacerbation she refused hospitalization and discharged home on ABx and steroids . Patient returns this morning for worsening shortness of breath and wheezing. Patient states she's been doing her nebulizer treatments at home however this morning she was having more difficulty breathing. Patient denies any fevers. Patient denies any chest pain. Patient does have a productive cough with clear mucus. Patient denies any nausea/ vomiting/diarrhea. Patient has no other complaints. Past Medical History Cardiovascular: CAD Pulmonary: Asthma, COPD, Other (sleep apnea) CENTRAL NERVOUS SYSTEM: Migraine GI: GERD, Hemorrhoids, Other (colon polyps removed) Hepatobiliary: Other (obesity) Psych: Bipolar, Depression Rheumatologic: Other (DJD, scoliosis) Renal/: UTI Endocrine: Diabetes Past Surgical History Past Surgical History: Cholecystectomy, Tubal Ligation, Other (teeth extraction ) Family History Family History: Hypertension Social History Smoke: 1 pack per day ALCOHOL: rare Drugs: Marijuana Current Medications Current Medications Current Medications Medications (Trade) Dose Ordered Sig/Jazzy Start Time Stop Time Status Last Admin Dose Admin Acetaminophen (Tylenol) 650 mg PRN Q4HRS PRN 04/04/17 10:15 04/05/17 10:14 Acetaminophen/ Hydrocodone Bitart (Lortab 7.5/325) 1 tab TID 04/04/17 14:00 04/04/17 13:28 1 TAB Albuterol Sulfate (Ventolin Neb Soln) 2.5 mg Q4HRS 04/04/17 12:30 04/04/17 15:01 2.5 MG Albuterol/ Ipratropium (Duoneb) 3 ml RTQID 04/04/17 12:00 04/04/17 12:10 DC 04/04/17 10:33 3 ML Ceftriaxone Sodium 1 gm/ Dextrose 50 ml @ 100 mls/hr Q24H 04/04/17 12:15 UNV Ceftriaxone Sodium (Rocephin) 1 gm Q24H 04/04/17 13:00 04/04/17 13:43 1 GM Cyclobenzaprine HCl (Flexeril) 10 mg TID 04/04/17 14:00 04/04/17 13:28 10 MG Dexamethasone Sodium Phosphate (Decadron) 10 mg 1X ONCE 04/04/17 08:45 04/04/17 08:46 DC 04/04/17 08:53 10 MG Dextrose (Dextrose 50%-Water Syringe) 12.5 gm PRN Q15MIN PRN 04/04/17 12:15 Doxycycline Hyclate (Vibra-Tab) 100 mg BID 04/04/17 12:30 04/04/17 13:28 100 MG Duloxetine HCl (Cymbalta) 60 mg DAILY 04/04/17 13:00 04/04/17 13:28 60 MG Fentanyl Citrate (Fentanyl 2ml Vial) 50 mcg PRN Q1HR PRN 04/04/17 10:15 04/05/17 10:14 Insulin Aspart (NovoLOG) 0-5 UNITS TIDWMEALS 04/04/17 17:00 Lactobacillus Rhamnosus (Culturelle) 1 cap BID 04/04/17 21:00 Metformin HCl (Glucophage) 500 mg BIDWMEALS 04/04/17 17:00 Methylprednisolone Sodium Succinate (SOLU-Medrol 40MG VIAL) 40 mg Q8HRS 04/04/17 14:00 04/04/17 13:28 40 MG Ondansetron HCl (Zofran) 4 mg PRN Q8HRS PRN 04/04/17 10:15 04/05/17 10:14 Pantoprazole Sodium (Protonix) 40 mg DAILYAC 04/04/17 13:00 04/04/17 13:28 40 MG Potassium Chloride/Dextrose/ Sod Cl 1,000 ml @ 75 mls/hr [id number] 04/04/17 13:00 04/04/17 13:29 75 MLS/HR Allergies Allergies Allergies Coded Allergies Type Severity Reaction Last Updated Verified Sulfa (Sulfonamide Antibiotics) Allergy Intermediate 05/02/15 Yes coconut oil Allergy Intermediate COCONUT 08/10/13 Yes ibuprofen Allergy Intermediate 05/02/15 Yes adhesive Adverse Reaction Mild Rash 08/10/13 Yes ROS Review of System CONSTITUTIONAL: No fever or chills EYES: No recent changes SKIN: No rash or itching CARDIOVASCULAR: No chest pain, syncope, palpitations, or edema RESPIRATORY: see HPI GASTROINTESTINAL: No nausea, vomiting or abdominal pain NEUROLOGICAL: No headaches or weakness ENDOCRINE: No cold or heat intolerance GENITOURINARY: No urgency or frequency of urination MUSCULOSKELETAL: has back pain and arthritis LYMPHATICS: No enlarged lymph nodes PSYCHIATRIC: + depression Physical Exam Physical Exam GEN.: No apparent distress. Alert and oriented. HEENT: Head is normocephalic, atraumatic NECK: Supple. LUNGS: bilateral wheezes and coarse BS HEART: RRR, S1, S2 present. Peripheral pulses intact ABDOMEN: Soft, nontender. Positive bowel sounds. EXTREMITIES: Without any cyanosis. NEUROLOGIC: Normal speech, normal tone PSYCHIATRIC: Normal affect, normal mood. SKIN: No ulcerations Vitals Vitals Vital Signs Date Time Temp Pulse Resp B/P (MAP) Pulse Ox O2 Delivery O2 Flow Rate FiO2 04/04/17 15:22 98.2 116 18 145/67 (93) 95 Room Air 98.2 Labs Labs Laboratory Tests Test 04/04/17 08:30 04/04/17 12:28 White Blood Count 22.7 x10^3/uL (4.0-11.0) Red Blood Count 5.56 x10^6/uL (3.50-5.40) Hemoglobin 16.9 g/dL (12.0-15.5) Hematocrit 50.9 % (36.0-47.0) Mean Corpuscular Volume 92 fL (79-100) Mean Corpuscular Hemoglobin 30 pg (25-35) Mean Corpuscular Hemoglobin Concent 33 g/dL (31-37) Red Cell Distribution Width 13.9 % (11.5-14.5) Platelet Count 441 x10^3/uL (140-400) Neutrophils (%) (Auto) 90 % (31-73) Lymphocytes (%) (Auto) 8 % (24-48) Monocytes (%) (Auto) 2 % (0-9) Eosinophils (%) (Auto) 0 % (0-3) Basophils (%) (Auto) 0 % (0-3) Neutrophils # (Auto) 20.4 x10^3uL (1.8-7.7) Lymphocytes # (Auto) 1.7 x10^3/uL (1.0-4.8) Monocytes # (Auto) 0.5 x10^3/uL (0.0-1.1) Eosinophils # (Auto) 0.0 x10^3/uL (0.0-0.7) Basophils # (Auto) 0.1 x10^3/uL (0.0-0.2) Segmented Neutrophils % 92 % (35-66) Band Neutrophils % 2 % (0-9) Lymphocytes % 4 % (24-48) Monocytes % 2 % (0-10) Platelet Estimate Adequate (ADEQUATE) Sodium Level 139 mmol/L (136-145) Potassium Level 4.1 mmol/L (3.5-5.1) Chloride Level 99 mmol/L (98-107) Carbon Dioxide Level 27 mmol/L (21-32) Anion Gap 13 (6-14) Blood Urea Nitrogen 10 mg/dL (7-20) Creatinine 1.2 mg/dL (0.6-1.0) Estimated GFR (Cockcroft-Gault) 47.0 BUN/Creatinine Ratio 8 (6-20) Glucose Level 196 mg/dL (70-99) Calcium Level 9.8 mg/dL (8.5-10.1) Total Bilirubin 0.5 mg/dL (0.2-1.0) Aspartate Amino Transf (AST/SGOT) 33 U/L (15-37) Alanine Aminotransferase (ALT/SGPT) 52 U/L (14-59) Alkaline Phosphatase 143 U/L (46-116) Troponin I Quantitative < 0.017 ng/mL (0.000-0.055) Total Protein 8.9 g/dL (6.4-8.2) Albumin 3.7 g/dL (3.4-5.0) Albumin/Globulin Ratio 0.7 (1.0-1.7) Glucose (Fingerstick) 231 mg/dL (70-99) Laboratory Tests Test 04/04/17 08:30 04/04/17 12:28 White Blood Count 22.7 x10^3/uL (4.0-11.0) Red Blood Count 5.56 x10^6/uL (3.50-5.40) Hemoglobin 16.9 g/dL (12.0-15.5) Hematocrit 50.9 % (36.0-47.0) Mean Corpuscular Volume 92 fL (79-100) Mean Corpuscular Hemoglobin 30 pg (25-35) Mean Corpuscular Hemoglobin Concent 33 g/dL (31-37) Red Cell Distribution Width 13.9 % (11.5-14.5) Platelet Count 441 x10^3/uL (140-400) Neutrophils (%) (Auto) 90 % (31-73) Lymphocytes (%) (Auto) 8 % (24-48) Monocytes (%) (Auto) 2 % (0-9) Eosinophils (%) (Auto) 0 % (0-3) Basophils (%) (Auto) 0 % (0-3) Neutrophils # (Auto) 20.4 x10^3uL (1.8-7.7) Lymphocytes # (Auto) 1.7 x10^3/uL (1.0-4.8) Monocytes # (Auto) 0.5 x10^3/uL (0.0-1.1) Eosinophils # (Auto) 0.0 x10^3/uL (0.0-0.7) Basophils # (Auto) 0.1 x10^3/uL (0.0-0.2) Segmented Neutrophils % 92 % (35-66) Band Neutrophils % 2 % (0-9) Lymphocytes % 4 % (24-48) Monocytes % 2 % (0-10) Platelet Estimate Adequate (ADEQUATE) Sodium Level 139 mmol/L (136-145) Potassium Level 4.1 mmol/L (3.5-5.1) Chloride Level 99 mmol/L (98-107) Carbon Dioxide Level 27 mmol/L (21-32) Anion Gap 13 (6-14) Blood Urea Nitrogen 10 mg/dL (7-20) Creatinine 1.2 mg/dL (0.6-1.0) Estimated GFR (Cockcroft-Gault) 47.0 BUN/Creatinine Ratio 8 (6-20) Glucose Level 196 mg/dL (70-99) Calcium Level 9.8 mg/dL (8.5-10.1) Total Bilirubin 0.5 mg/dL (0.2-1.0) Aspartate Amino Transf (AST/SGOT) 33 U/L (15-37) Alanine Aminotransferase (ALT/SGPT) 52 U/L (14-59) Alkaline Phosphatase 143 U/L (46-116) Troponin I Quantitative < 0.017 ng/mL (0.000-0.055) Total Protein 8.9 g/dL (6.4-8.2) Albumin 3.7 g/dL (3.4-5.0) Albumin/Globulin Ratio 0.7 (1.0-1.7) Glucose (Fingerstick) 231 mg/dL (70-99) VTE Prophylaxis Ordered VTE Prophylaxis Devices: Yes VTE Pharmacological Prophylaxi: Yes Assessment/Plan Assessment/Plan 1- COPD exacerbation 2-obesity/sleep apnea 3-leukocytosis 4-DM II 5-HTN others as per PMH, started Abx , steroid , bronchodilators, advised to quit smoking. Dr. Fernandez will resume care in AM KATHY FERMIN MD Apr 04, 2017 16:32
[2017-04-04] MEDS: INSULIN ASPART 300 UNITS/3 ML INSULN.PEN SQ SCH (18:35)
[2017-04-04] MEDS: metFORMIN 500 MG TABLET PO SCH (18:35)
[2017-04-04 19:55] VITALS: BP 118/72
[2017-04-04] MEDS: LACTOBACILLUS RHAMNOSUS GG 1 CAPSULE. PO SCH (21:16)
[2017-04-04] MEDS: ENOXAPARIN 40 MG/0.4 ML SYRINGE. SQ SCH (21:18)
[2017-04-04 23:18] VITALS: BP 129/61
[2017-04-05] MEDS: ALBUTEROL SULFATE 2.5 MG/3 ML NEBU. NEB SCH ×3 (00:03→07:43)
[2017-04-05] MEDS: POTASSIUM CL 20MEQ D5-0.45NACL 1,000 ML IV SCH (03:09)
[2017-04-05 03:20] VITALS: BP 126/94
[2017-04-05 06:10] LABS: BASO # 0.1 x10^3/uL (0.0-0.2); BASO % 0 % (0-3); EOS % 0 % (0-3); HEMATOCRIT 44.6 % (36.0-47.0); HEMOGLOBIN 14.7 g/dL (12.0-15.5); LYMPH # 2.6 x10^3/uL (1.0-4.8); LYMPH % 8 % (24-48); MEAN CORPUSCULAR HEMOGLOBIN 30 pg (25-35); MEAN CORPUSCULAR HGB CONC 33 g/dL (31-37); MEAN CORPUSCULAR VOLUME 91 fL (79-100); MONO % 4 % (0-9); NEUT % 89 % (31-73); PLATELET COUNT 402 x10^3/uL (140-400); RED BLOOD COUNT 4.88 x10^6/uL (3.50-5.40); RED CELL DISTRIBUTION WIDTH 13.8 % (11.5-14.5); WHITE BLOOD COUNT 34.1 x10^3/uL (4.0-11.0)
[2017-04-05] MEDS: methylPREDNISolone SOD SUCC PF 40 MG/ML VIAL. IV SCH ×3 (06:17→21:04)
[2017-04-05 06:39] LABS: ALBUMIN 3.2 g/dL (3.4-5.0); ALBUMIN/GLOBULIN RATIO 0.7 (1.0-1.7); CALCIUM 9.2 mg/dL (8.5-10.1); CREATININE 1.1 mg/dL (0.6-1.0); TOTAL BILIRUBIN 0.4 mg/dL (0.2-1.0); TOTAL PROTEIN 7.9 g/dL (6.4-8.2)
[2017-04-05 07:00] VITALS: BP_SYST 100; BP_SYST 104; BP_DIAS 68; BP_DIAS 71
[2017-04-05] MEDS: LACTOBACILLUS RHAMNOSUS GG 1 CAPSULE. PO SCH ×2 (08:17→21:03)
[2017-04-05] MEDS: DULoxetine HCL 30 MG CAPSULE.DR PO SCH (08:17)
[2017-04-05] MEDS: HYDROcodone/APAP 7.5/325MG 1 TAB TABLET PO SCH ×3 (08:18→21:03)
[2017-04-05] MEDS: DOXYCYCLINE HYCLATE 100 MG TABLET PO SCH ×2 (08:18→21:02)
[2017-04-05] MEDS: PANTOPRAZOLE 40 MG TABLET.DR. PO SCH (08:18)
[2017-04-05] MEDS: CYCLOBENZAPRINE 10 MG TABLET. PO SCH ×3 (08:18→21:11)
[2017-04-05] MEDS: metFORMIN 500 MG TABLET PO SCH ×2 (08:18→16:35)
[2017-04-05] MEDS: INSULIN ASPART 300 UNITS/3 ML INSULN.PEN SQ SCH ×3 (08:22→16:37)
[2017-04-05] MEDS ORDERED: DULoxetine HCL 30 MG CAPSULE.DR PO SCH (09:00)
--- NOTE | 2017-04-05 09:22 | PDOC ---
Provider Note Provider Note vss, still diffuse wheezes, labs noted - cont same meds CESARIO MACKEY MD Apr 05, 2017 09:22
[2017-04-05 11:00] VITALS: BP 121/73
[2017-04-05] MEDS: IPRATRPIUM/ALBUTEROL 0.5/2.5MG 3 ML NEBU. NEB SCH ×3 (12:21→19:55)
[2017-04-05] MEDS: cefTRIAXone IV Push 1 GM VIAL. IVP SCH (13:15)
[2017-04-05 15:00] VITALS: BP 111/62
[2017-04-05 19:00] VITALS: BP 109/57
[2017-04-05] MEDS: ENOXAPARIN 40 MG/0.4 ML SYRINGE. SQ SCH (21:04)
[2017-04-05 23:54] VITALS: BP 119/72
[2017-04-06] MEDS: ALBUTEROL SULFATE 2.5 MG/3 ML NEBU. NEB PRN ×2 (01:04→04:05)
[2017-04-06 03:00] VITALS: BP 127/81
[2017-04-06] MEDS: methylPREDNISolone SOD SUCC PF 40 MG/ML VIAL. IV SCH ×3 (05:12→21:22)
[2017-04-06 07:00] VITALS: BP 116/71
[2017-04-06] MEDS: CYCLOBENZAPRINE 10 MG TABLET. PO SCH ×3 (07:51→21:19)
[2017-04-06] MEDS: metFORMIN 500 MG TABLET PO SCH ×2 (07:51→16:53)
[2017-04-06] MEDS: DOXYCYCLINE HYCLATE 100 MG TABLET PO SCH (07:51)
[2017-04-06] MEDS: LACTOBACILLUS RHAMNOSUS GG 1 CAPSULE. PO SCH ×2 (07:51→21:18)
[2017-04-06] MEDS: PANTOPRAZOLE 40 MG TABLET.DR. PO SCH (07:52)
[2017-04-06] MEDS: HYDROcodone/APAP 7.5/325MG 1 TAB TABLET PO SCH ×3 (07:52→21:19)
[2017-04-06] MEDS: DULoxetine HCL 30 MG CAPSULE.DR PO SCH (07:54)
[2017-04-06] MEDS: INSULIN ASPART 300 UNITS/3 ML INSULN.PEN SQ SCH ×3 (07:59→17:01)
--- NOTE | 2017-04-06 08:04 | PDOC ---
Provider Note Provider Note vss, no temp, glucose up re steroids- cults neg, go to po antibx, maybe dc in am CESARIO MACKEY MD Apr 06, 2017 08:04
[2017-04-06] MEDS: IPRATRPIUM/ALBUTEROL 0.5/2.5MG 3 ML NEBU. NEB SCH ×4 (08:08→20:47)
[2017-04-06] MEDS: CEFPODOXIME PROXETIL 100 MG TABLET. PO SCH ×2 (08:19→21:19)
[2017-04-06 11:00] VITALS: BP 122/77
[2017-04-06 15:00] VITALS: BP_SYST 129; BP_SYST 136; BP_DIAS 72; BP_DIAS 76
[2017-04-06 19:00] VITALS: BP 123/87
[2017-04-06 23:00] VITALS: BP 131/86
[2017-04-07 03:50] VITALS: BP 110/60
[2017-04-07] MEDS: methylPREDNISolone SOD SUCC PF 40 MG/ML VIAL. IV SCH (05:47)
[2017-04-07 07:00] VITALS: BP 125/87
[2017-04-07] MEDS: IPRATRPIUM/ALBUTEROL 0.5/2.5MG 3 ML NEBU. NEB SCH (07:12)
[2017-04-07] MEDS: metFORMIN 500 MG TABLET PO SCH (07:50)
[2017-04-07] MEDS: CEFPODOXIME PROXETIL 100 MG TABLET. PO SCH (07:50)
[2017-04-07] MEDS: CYCLOBENZAPRINE 10 MG TABLET. PO SCH (07:50)
[2017-04-07] MEDS: DULoxetine HCL 30 MG CAPSULE.DR PO SCH (07:50)
[2017-04-07] MEDS: PANTOPRAZOLE 40 MG TABLET.DR. PO SCH (07:50)
[2017-04-07] MEDS: LACTOBACILLUS RHAMNOSUS GG 1 CAPSULE. PO SCH (07:50)
[2017-04-07] MEDS: HYDROcodone/APAP 7.5/325MG 1 TAB TABLET PO SCH (07:51)
[2017-04-07] MEDS: INSULIN ASPART 300 UNITS/3 ML INSULN.PEN SQ SCH (07:54)
--- NOTE | 2017-04-07 08:00 | DISCH ---
DISCHARGE INSTRUCTIONS Condition on Discharge Condition on Discharge: Stable Activity After Discharge Activity Instructions for Disc: No restrictions Diet after Discharge Diet after Discharge: Regular, Diabetic No Calorie Level Follow-Up Follow up with: CESARIO Rush MD Apr 07, 2017 08:00
--- NOTE | 2017-04-07 08:03 | PDOC ---
Provider Note Provider Note [id number] CESARIO MACKEY MD Apr 07, 2017 08:03
--- NOTE | 2017-04-07 14:22 | DS ---
DATE OF DISCHARGE: 04/07/2017 HOSPITAL SUMMARY: A 52-year-old white female with known COPD with continued tobacco use and type 2 diabetes, came in with an acute exacerbation. Her chest x-ray was clear. White count was elevated at 22,000, sed rate normal. Chemistry profile unremarkable except for mildly elevated blood sugars consistent with steroid-dependent diabetes. Creatinine was 1.2. Blood cultures and urine culture had no growth and the chest x-ray was clear. She was treated with IV steroids, respiratory treatments and Rocephin followed by oral Vantin and seems to be improved at this time and able to be followed as an outpatient. She has remained afebrile with good oxygen saturations. FINAL DIAGNOSIS: Acute exacerbation of chronic obstructive pulmonary disease. OPERATIONS, PROCEDURES, COMPLICATIONS, AND CONSULTATIONS: None. DISPOSITION: Discharged to home on Vantin 200 mg twice a day for 5 more days, prednisone taper over the next 7 days. Rest of home meds remain the same including metformin and inhalers and office followup in 1 week. Continued tobacco avoidance was encouraged. IMMUNIZATIONS: Up-to-date. PROGNOSIS: Guarded. CESARIO MACKEY MD DR: NOVA/aileen JOB#: [id number] / [id number]
== END 2017-04-07 09:27 | disposition home or self-care (01) | DRG 192 ==
LOC: ER 08:17 → 6 SOUTH 10:04
PROVIDERS: ADMIT Family Medicine; ATTEND Family Medicine
DX: J44.1 Chronic obstructive pulmonary disease with (acute) exacerbation (principal); M41.9 Scoliosis, unspecified; E66.9 Obesity, unspecified; E11.9 Type 2 diabetes mellitus without complications; F17.210 Nicotine dependence, cigarettes, uncomplicated; Z68.38 Body mass index [BMI] 38.0-38.9, adult; F31.9 Bipolar disorder, unspecified; G47.30 Sleep apnea, unspecified; I10 Essential (primary) hypertension; I25.10 Atherosclerotic heart disease of native coronary artery without angina pectoris; K21.9 Gastro-esophageal reflux disease without esophagitis; G43.909 Migraine, unspecified, not intractable, without status migrainosus; G89.29 Other chronic pain; M19.90 Unspecified osteoarthritis, unspecified site; F19.11 Other psychoactive substance abuse, in remission; Z90.49 Acquired absence of other specified parts of digestive tract; Z82.49 Family history of ischemic heart disease and other diseases of the circulatory system; Z86.010 Personal history of colon polyps; Z90.710 Acquired absence of both cervix and uterus; Z87.440 Personal history of urinary (tract) infections
CPT/HCPCS: 36415; 71010; 71020; 80053; 82962; 84484; 85007; 85025; 85651; 87040; 87086; 93005; 94250; 94640; 96374; J0696; J1100; J1650; J1815; J2920; J7613; J7620; 99285-25

== ENCOUNTER 2018-03-15 17:57 | Inpatient (IN) | payer MEDICARE ==
[~2018-03-15] VITALS: Ht 171.4 cm; Wt 100.7 kg
[~2018-03-15 17:57] MED LIST changes: +HYDR-2762 PO; +METF500T16 PO
[2018-03-15] MEDS ORDERED: IV NORMAL SALINE 1000ML BAG 1,000 ML IV ONE (18:15)
--- NOTE | 2018-03-15 18:20 | PHYS DOC ---
Past Medical History Past Medical History: Asthma, COPD, GERD, Other Additional Past Medical Histor: chronic pain Past Surgical History: Tubal ligation Additional Past Surgical Histo: eye, teeth extraction Smoking: Less than 1pk/day Alcohol Use: Occasionally Drug Use: Marijuana Adult General Chief Complaint Chief Complaint: SHORTNESS OF BREATH HPI HPI 53-year-old female presents to ER for complaints of increased shortness of air over the past week. Patient reports history of COPD, asthma, and bronchitis and had been seen by her primary care physician 2 weeks ago and was placed on steroids. Patient denies any antibiotic use. Patient reports her breathing symptoms had somewhat improved and then developed GI issues with vomiting and diarrhea last Wednesday through . Patient reports those symptoms improved however her shortness of air and cough increased over the past couple of days. Patient reports today she's had labored respirations with wheezing and chest tightness. Patient reports she smokes half pack per day of cigarettes. Patient denies any recent travel or other family members with similar sxs. Pt reports she has felt clammy denying checking temp. for fever. Patient denies productive cough, swelling in extremities, or abdominal pain. Review of Systems Review of Systems Constitutional: Reports chills. Denies lethargy, fever Eyes: Denies change in visual acuity, redness, or eye pain [] HENT: Denies nasal congestion or sore throat [] Respiratory: Reports nonprod. cough with SOA Cardiovascular: Reports chest tightness GI: Denies abdominal pain, nausea, vomiting, bloody stools or diarrhea. Reports did have N/V/D last week : Denies dysuria or hematuria. Denies change in urinary pattern Musculoskeletal: Reports generalized bodyaches- denies neck stiffness/rigidity Integument: Denies rash, swelling or skin lesions [] Neurologic: Denies headache, focal weakness or sensory changes [] All other systems were reviewed and found to be within normal limits, except as documented in this note. Current Medications Current Medications Current Medications Medications (Trade) Dose Ordered Sig/Jazzy Start Time Stop Time Status Last Admin Dose Admin Albuterol/ Ipratropium (Duoneb) 3 ml 1X ONCE 03/15/18 18:45 03/15/18 18:46 DC 03/15/18 18:42 3 ML Methylprednisolone Sodium Succinate (SOLU-Medrol 125MG VIAL) 125 mg 1X ONCE 03/15/18 18:45 10/23/18 18:46 DC 03/15/18 18:34 125 MG Sodium Chloride 1,000 ml @ 1,000 mls/hr 1X ONCE 03/15/18 18:15 03/15/18 19:14 DC 03/15/18 18:34 1,000 MLS/HR Allergies Allergies Allergies Coded Allergies Type Severity Reaction Last Updated Verified Sulfa (Sulfonamide Antibiotics) Allergy Intermediate 05/02/15 Yes coconut oil Allergy Intermediate COCONUT 08/10/13 Yes ibuprofen Allergy Intermediate 05/02/15 Yes adhesive Adverse Reaction Mild Rash 08/10/13 Yes Physical Exam Physical Exam Constitutional: Well developed, well nourished, mild distress on initial exam with labored respirations, non-toxic appearance. Speaking in full sentences HENT: Normocephalic, atraumatic, bilateral ears normal, mucous membranes pink/ dry, no oral exudates, nose normal. [] Eyes: pupils equal, conjunctiva normal, no discharge. [] Neck: Normal range of motion, no tenderness, supple, no gross adenopathy. Trachea midline Cardiovascular: Tachycardic heart rate/rhythm, no murmur [] Lungs & Thorax: Bilateral expiratory and inspiratory wheezing. Diminished lung sounds throughout all lung head with less air movement in bilateral bases. Respirations equal and labored during exam Abdomen: Bowel sounds normal, soft, no tenderness, no masses, no pulsatile masses. [] Skin: Warm, dry, no erythema, no rash. [] Back: No tenderness, no CVA tenderness. [] Extremities: No tenderness, no cyanosis, no clubbing, ROM intact, no edema. [] Neurologic: Alert and oriented X 3, normal motor function, normal sensory function, no focal deficits noted. [] Psychologic: Affect normal, judgement normal, mood normal. [] Current Patient Data Vital Signs Vital Signs Date Time Temp Pulse Resp B/P (MAP) Pulse Ox O2 Delivery O2 Flow Rate FiO2 03/15/18 19:00 112 111/57 (75) 95 Room Air 03/15/18 18:00 98.3 30 98.3 Lab Values Laboratory Tests Test 03/15/18 18:12 White Blood Count 18.2 x10^3/uL (4.0-11.0) H Red Blood Count 4.48 x10^6/uL (3.50-5.40) Hemoglobin 14.2 g/dL (12.0-15.5) Hematocrit 40.9 % (36.0-47.0) Mean Corpuscular Volume 91 fL (79-100) Mean Corpuscular Hemoglobin 32 pg (25-35) Mean Corpuscular Hemoglobin Concent 35 g/dL (31-37) Red Cell Distribution Width 14.0 % (11.5-14.5) Platelet Count 399 x10^3/uL (140-400) Neutrophils (%) (Auto) 63 % (31-73) Lymphocytes (%) (Auto) 30 % (24-48) Monocytes (%) (Auto) 4 % (0-9) Eosinophils (%) (Auto) 2 % (0-3) Basophils (%) (Auto) 1 % (0-3) Neutrophils # (Auto) 11.5 x10^3uL (1.8-7.7) H Lymphocytes # (Auto) 5.5 x10^3/uL (1.0-4.8) H Monocytes # (Auto) 0.7 x10^3/uL (0.0-1.1) Eosinophils # (Auto) 0.3 x10^3/uL (0.0-0.7) Basophils # (Auto) 0.2 x10^3/uL (0.0-0.2) Sodium Level 138 mmol/L (136-145) Potassium Level 3.1 mmol/L (3.5-5.1) L Chloride Level 99 mmol/L (98-107) Carbon Dioxide Level 30 mmol/L (21-32) Anion Gap 9 (6-14) Blood Urea Nitrogen 7 mg/dL (7-20) Creatinine 1.1 mg/dL (0.6-1.0) H Estimated GFR (Cockcroft-Gault) 51.8 BUN/Creatinine Ratio 6 (6-20) Glucose Level 152 mg/dL (70-99) H Lactic Acid Level 2.2 mmol/L (0.4-2.0) H Calcium Level 8.9 mg/dL (8.5-10.1) Magnesium Level 1.3 mg/dL (1.8-2.4) L Total Bilirubin 0.5 mg/dL (0.2-1.0) Aspartate Amino Transferase (AST) 47 U/L (15-37) H Alanine Aminotransferase (ALT) 54 U/L (14-59) Alkaline Phosphatase 122 U/L (46-116) H Troponin I Quantitative < 0.017 ng/mL (0.000-0.055) Total Protein 7.9 g/dL (6.4-8.2) Albumin 3.0 g/dL (3.4-5.0) L Albumin/Globulin Ratio 0.6 (1.0-1.7) L Laboratory Tests 03/15/18 18:12 Laboratory Tests 03/15/18 18:12 EKG EKG EKG obtained 03/15/18 at [address] To Sinus tachycardia Vent rate 111 No acute STEMI Radiology/Procedures Radiology/Procedures []PROCEDURE: CHEST PA & LATERAL PA and lateral chest radiograph. History: Dyspnea and cough for 4 days. Comparison: April 04, 2017. Findings: Cardiomediastinal silhouette is within normal limits for size. Bilateral lung head appear clear without evidence of infiltrate, effusion, or pneumothorax. Impression: 1. No acute cardiopulmonary process. Electronically signed by: Derrell Salgado MD (03/16/2018 8:20 AM) [place] [id number] DICTATED and SIGNED BY: DERRELL SALGADO MD DATE: 03/16/18 0819 Course & Med Decision Making Course & Med Decision Making Pertinent Labs and Imaging studies reviewed. (See chart for details) 1899: Discussed pt's case and plan of care with Dr. To who viewed pt's chest xray with no obvious infiltrate/acute finding- with patient's WBCs at 18.2 no left shift; lactic acid 2.2 and presenting presentation to ER patient started on IV Rocephin and azithromycin while in the ER. Blood cultures were obtained. Patient was given IV fluid bolus while in the ER. EKG with no acute ST elevation/STEMI and troponin <0.017. Discussed test results with patient with plans for admission and she is agreeable with this plan. Patient reports she has had some improvement in breathing since receiving IV site Medrol and DuoNeb treatment. Patient continues to have inspiratory and expiratory wheezing in bilateral upper lobes but does have increased air movement throughout. Patient is speaking in full sentences and remains nontoxic in appearance. 1911: Spoke with Dr. Mackey, pt's PCP and asked patient's case, test results, and plans for admission. Dragon Disclaimer Dragon Disclaimer This electronic medical record was generated, in whole or in part, using a voice recognition dictation system. Departure Departure Impression: Primary Impression: COPD exacerbation Additional Impression: Dyspnea Disposition: 09 ADMITTED INPATIENT Admitting Physician: Cesario Mackey Condition: STABLE Referrals: CESARIO MACKEY MD (PCP) Problem Qualifiers GEOFF RUBIO APRN Mar 15, 2018 18:20
[2018-03-15 18:23] LABS: BASO # 0.2 x10^3/uL (0.0-0.2); BASO % 1 % (0-3); EOS # 0.3 x10^3/uL (0.0-0.7); EOS % 2 % (0-3); HEMATOCRIT 40.9 % (36.0-47.0); HEMOGLOBIN 14.2 g/dL (12.0-15.5); LYMPH # 5.5 x10^3/uL (1.0-4.8); LYMPH % 30 % (24-48); MEAN CORPUSCULAR HEMOGLOBIN 32 pg (25-35); MEAN CORPUSCULAR HGB CONC 35 g/dL (31-37); MEAN CORPUSCULAR VOLUME 91 fL (79-100); MONO # 0.7 x10^3/uL (0.0-1.1); MONO % 4 % (0-9); NEUT # 11.5 x10^3uL (1.8-7.7); NEUT % 63 % (31-73); PLATELET COUNT 399 x10^3/uL (140-400); RED BLOOD COUNT 4.48 x10^6/uL (3.50-5.40); WHITE BLOOD COUNT 18.2 x10^3/uL (4.0-11.0)
[2018-03-15 18:33] LABS: CALCIUM 8.9 mg/dL (8.5-10.1); CREATININE 1.1 mg/dL (0.6-1.0); GFR 51.8; POTASSIUM 3.1 mmol/L (3.5-5.1)
[2018-03-15 18:39] LABS: ALBUMIN/GLOBULIN RATIO 0.6 (1.0-1.7); MAGNESIUM 1.3 mg/dL (1.8-2.4); TOTAL BILIRUBIN 0.5 mg/dL (0.2-1.0); TOTAL PROTEIN 7.9 g/dL (6.4-8.2)
[2018-03-15] MEDS ORDERED: methylPREDNISolone SOD SUCC PF 125 MG/2 ML VIAL. IV ONE (18:45)
[2018-03-15] MEDS ORDERED: IPRATRPIUM/ALBUTEROL 0.5/2.5MG 3 ML NEBU. NEB ONE ×2 (18:45→19:45)
[2018-03-15] MEDS ORDERED: AZITHRMYCN 500MG IVPB FOR OMNI 250 ML IV ONE (19:30)
[2018-03-15] MEDS ORDERED: ALBUTEROL SULFATE 8GM INHALER. IH PRN (21:45)
[2018-03-15] MEDS ORDERED: ALBUTEROL SULFATE 2.5 MG/3 ML NEBU. NEB PRN (22:00)
[2018-03-15 22:03] VITALS: BP 95/57
[2018-03-15] MEDS: HYDROcodone/APAP 7.5/325MG 1 TAB TABLET PO SCH (22:16)
[2018-03-15] MEDS: CYCLOBENZAPRINE 10 MG TABLET. PO SCH (22:16)
[2018-03-15] MEDS: NICOTINE 14MG PATCH. TD PRN (22:17)
[2018-03-15] MEDS: ALBUTEROL SULFATE 2.5 MG/3 ML NEBU. NEB SCH (22:57)
[2018-03-15 23:00] VITALS: BP 116/69
[2018-03-16 03:30] VITALS: BP 97/66
[2018-03-16] MEDS: ALBUTEROL SULFATE 2.5 MG/3 ML NEBU. NEB SCH ×5 (03:50→20:04)
[2018-03-16 05:37] LABS: BASO % 0 % (0-3); EOS % 0 % (0-3); HEMATOCRIT 39.9 % (36.0-47.0); HEMOGLOBIN 13.5 g/dL (12.0-15.5); LYMPH # 1.5 x10^3/uL (1.0-4.8); LYMPH % 10 % (24-48); MEAN CORPUSCULAR HEMOGLOBIN 31 pg (25-35); MEAN CORPUSCULAR HGB CONC 34 g/dL (31-37); MEAN CORPUSCULAR VOLUME 92 fL (79-100); MONO # 0.2 x10^3/uL (0.0-1.1); MONO % 1 % (0-9); NEUT # 13.6 x10^3uL (1.8-7.7); NEUT % 89 % (31-73); PLATELET COUNT 397 x10^3/uL (140-400); RED BLOOD COUNT 4.34 x10^6/uL (3.50-5.40); RED CELL DISTRIBUTION WIDTH 13.9 % (11.5-14.5); WHITE BLOOD COUNT 15.4 x10^3/uL (4.0-11.0)
[2018-03-16 05:51] LABS: CALCIUM 8.7 mg/dL (8.5-10.1); CREATININE 1.1 mg/dL (0.6-1.0); GFR 51.8
[2018-03-16 05:59] LABS: POTASSIUM 2.9 mmol/L (3.5-5.1)
--- NOTE | 2018-03-16 06:18 | EKG ---
[facility] [address] [place] [address] Test Date: 2018-03-15 Test Time: 18:29:30 Pat Name: GUERRERO LR Department: Room: [facility] Gender: F Leaf Tier: : 1965 Requested By: GEOFF RUBIO Order Number: [id number] Reading MD: David Moura Measurements Intervals [place] Rate: 111 P: 66 [place]: 152 QRS: 84 QRSD: 76 T: 88 QT: 306 QTc: 419 Interpretive Statements SINUS TACHYCARDIA OTHERWISE NORMAL ECG Compared to ECG 04/04/2017 10:37:50 No significant changes Electronically Signed On 03-17-2018 11:24:59 CDT by David Moura
[2018-03-16 07:00] VITALS: BP 101/59
[2018-03-16] MEDS: BUDESONIDE 0.5 MG/2 ML NEBU. NEB SCH ×2 (07:48→20:04)
[2018-03-16] MEDS: PANTOPRAZOLE 40 MG TABLET.DR. PO SCH (08:12)
[2018-03-16] MEDS: metFORMIN 500 MG TABLET PO SCH ×2 (08:12→16:46)
[2018-03-16] MEDS: POTASSIUM CHLORIDE 10 MEQ TABLET.ER. PO SCH ×3 (08:12→16:46)
[2018-03-16] MEDS: CYCLOBENZAPRINE 10 MG TABLET. PO SCH ×3 (08:12→20:36)
[2018-03-16] MEDS: DULoxetine HCL 30 MG CAPSULE.DR PO SCH (08:13)
[2018-03-16] MEDS: HYDROcodone/APAP 7.5/325MG 1 TAB TABLET PO SCH ×3 (08:13→20:37)
--- NOTE | 2018-03-16 08:23 | RAD ---
PA and lateral chest radiograph. History: Dyspnea and cough for 4 days. Comparison: April 04, 2017. Findings: Cardiomediastinal silhouette is within normal limits for size. Bilateral lung head appear clear without evidence of infiltrate, effusion, or pneumothorax. Impression: 1. No acute cardiopulmonary process. Electronically signed by: Derrell Rolle MD (03/16/2018 8:20 AM) [place] [id number]
--- NOTE | 2018-03-16 08:23 | PDOC ---
Provider Note Provider Note [id number] CESARIO MACKEY MD Mar 16, 2018 08:23
[2018-03-16] MEDS ORDERED: NON FORMULARY ITEM (Budesonide/Formoterol Fumarate (Symbicort 160-4.5 Mcg Inhaler) 2 PUFF) IH SCH (09:00)
[2018-03-16] MEDS: LACTOBACILLUS RHAMNOSUS GG 1 CAPSULE. PO SCH ×2 (09:43→20:36)
[2018-03-16] MEDS: methylPREDNISolone SOD SUCC PF 40 MG/ML VIAL. IV SCH ×2 (09:43→20:36)
--- NOTE | 2018-03-16 09:55 | HP ---
ADMIT DATE: 03/15/2018 CHIEF COMPLAINT: Shortness of breath. HISTORY OF PRESENT ILLNESS: A 53-year-old white female, has fairly significant COPD, was last on prednisone about a month ago and has been off for 2 to 3 weeks. Lately, she has had increasing shortness of breath, wheezing, and cough productive of slightly cloudy, foamy, thick sputum. Chest x-ray was clear in the ER and she was admitted with IV Solu-Medrol and respiratory treatments. She denies hemoptysis, fever, chills, chest pain or any other specific complaints at this time. PAST MEDICAL HISTORY: MEDICATIONS: She takes metformin for diabetes, well controlled. ALLERGIES: SHE IS ALLERGIC TO SULFA. She has had pneumonia and flu vaccines. She has had spirometry in the past, is well documented here lung function decrease. SOCIAL HISTORY: Still light smoker, 5-10 a day. smokes in the home as well. She has smoked since she was a teenager. , not employed. FAMILY HISTORY: Unremarkable. REVIEW OF SYSTEMS: No other complaints. OBJECTIVE: ENT: She is edentulous. Otherwise, all within normal limits. NECK: No masses, nodes or bruits. LUNGS: Coarse inspiratory crackles and expiratory wheezes and rhonchi diffusely. No dullness is noted. CARDIOVASCULAR: Regular rate. No tachycardia or murmur. ABDOMEN: Soft, benign and nontender. EXTREMITIES: Good pedal and radial pulses. 1-2+ clubbing is noted in the fingernails. No cyanosis. No other joint or skin lesions. NEUROLOGIC: Physiologic, nonfocal. Alert, appropriate, responsive, oriented x 4. ASSESSMENT: Exacerbation of chronic obstructive pulmonary disease in a smoker with well controlled type 2 diabetes mellitus. PLAN: Sputum culture, IV steroids and around the clock breathing treatments. CESARIO MACKEY MD DR: NOVA/aileen JOB#: [id number] / [id number]
[2018-03-16 11:00] VITALS: BP 108/69
[2018-03-16 15:00] VITALS: BP 109/70
[2018-03-16] MEDS: NICOTINE 14MG PATCH. TD PRN (16:48)
[2018-03-16 19:00] VITALS: BP 100/67
[2018-03-16] MEDS: AZITHROMYCIN 250 MG TABLET. PO SCH (20:36)
[2018-03-16 23:00] VITALS: BP 99/69
[2018-03-17] MEDS: ALBUTEROL SULFATE 2.5 MG/3 ML NEBU. NEB SCH ×6 (00:49→23:47)
[2018-03-17 03:00] VITALS: BP 116/75
[2018-03-17] MEDS: PANTOPRAZOLE 40 MG TABLET.DR. PO SCH (06:31)
[2018-03-17 07:00] VITALS: BP 116/73
[2018-03-17] MEDS: BUDESONIDE 0.5 MG/2 ML NEBU. NEB SCH ×2 (07:02→19:57)
[2018-03-17] MEDS: CYCLOBENZAPRINE 10 MG TABLET. PO SCH ×3 (08:37→20:46)
[2018-03-17] MEDS: DULoxetine HCL 30 MG CAPSULE.DR PO SCH (08:37)
[2018-03-17] MEDS: metFORMIN 500 MG TABLET PO SCH ×2 (08:37→16:42)
[2018-03-17] MEDS: LACTOBACILLUS RHAMNOSUS GG 1 CAPSULE. PO SCH ×2 (08:37→20:46)
[2018-03-17] MEDS: HYDROcodone/APAP 7.5/325MG 1 TAB TABLET PO SCH ×3 (08:39→20:47)
[2018-03-17] MEDS: methylPREDNISolone SOD SUCC PF 40 MG/ML VIAL. IV SCH ×2 (08:40→20:46)
[2018-03-17] MEDS: POTASSIUM CHLORIDE 10 MEQ TABLET.ER. PO SCH ×3 (08:40→16:42)
--- NOTE | 2018-03-17 09:07 | PDOC ---
Provider Note Provider Note [id number] CESARIO MACKEY MD Mar 17, 2018 09:07
[2018-03-17 11:00] VITALS: BP 123/70
[2018-03-17] MEDS: NICOTINE 14MG PATCH. TD PRN (14:35)
[2018-03-17 15:00] VITALS: BP 108/60
[2018-03-17 19:00] VITALS: BP 115/73
[2018-03-17] MEDS: AZITHROMYCIN 250 MG TABLET. PO SCH (20:46)
--- NOTE | 2018-03-17 22:58 | PN ---
DATE: 03/17/2018 SUBJECTIVE: The patient reports continued, minimally productive paroxysmal cough and dyspnea, but her blood pressure looks good. O2 sats are reasonable and she is afebrile. Sputum culture is pending at this time. Her potassium is still low, so we will check her potassium, continue oral supplementation and continue aggressive respiratory treatments and IV steroids as she still needs inpatient care. Time off tobacco is helping her as well. CESARIO MACKEY MD DR: NOVA/nts JOB#: [id number] / [id number]
[2018-03-17 23:00] VITALS: BP 125/82
[2018-03-18 03:00] VITALS: BP 113/78
[2018-03-18] MEDS: ALBUTEROL SULFATE 2.5 MG/3 ML NEBU. NEB SCH ×2 (04:37→07:22)
[2018-03-18 07:00] VITALS: BP 123/80
[2018-03-18] MEDS: BUDESONIDE 0.5 MG/2 ML NEBU. NEB SCH (07:22)
[2018-03-18] MEDS ORDERED: predniSONE 10 MG TABLET PO ONE (08:30)
--- NOTE | 2018-03-18 08:30 | PDOC ---
Provider Note Provider Note [id number] CESARIO MACKEY MD Mar 18, 2018 08:30
--- NOTE | 2018-03-18 08:32 | DISCH ---
DISCHARGE INSTRUCTIONS Condition on Discharge Condition on Discharge: Stable Activity After Discharge Activity Instructions for Disc: No restrictions, Activity as tolerated Lifting Instructions after Dis: No heavy lifting Exercise Instruction after Dis: Progress as tolerated Driving Instructions after Dis: Do not drive today Weight Bearing Status after Di: As tolerated Diet after Discharge Diet after Discharge: Cardiac, Diabetic No Calorie Level Diet Texture: Regular Liquid Texture: Thin Liquid Swallowing Supervision: None needed Checks after Discharge Checks after discharge: Check blood press - daily, Check blood sugar, ac/hs, Check your Temp as needed Follow-Up Follow up with: jessie scheduled Treatment/Equipment after DC Adaptive Equipment Issued: None CESARIO MACKEY MD Mar 18, 2018 08:31
[2018-03-18] MEDS: NICOTINE 14MG PATCH. TD PRN (09:49)
[2018-03-18] MEDS: PANTOPRAZOLE 40 MG TABLET.DR. PO SCH (09:51)
[2018-03-18] MEDS: HYDROcodone/APAP 7.5/325MG 1 TAB TABLET PO SCH (09:52)
[2018-03-18] MEDS: CYCLOBENZAPRINE 10 MG TABLET. PO SCH (09:52)
[2018-03-18] MEDS: DULoxetine HCL 30 MG CAPSULE.DR PO SCH (09:52)
[2018-03-18] MEDS: LACTOBACILLUS RHAMNOSUS GG 1 CAPSULE. PO SCH (09:52)
[2018-03-18] MEDS: metFORMIN 500 MG TABLET PO SCH (09:52)
[2018-03-18] MEDS: POTASSIUM CHLORIDE 10 MEQ TABLET.ER. PO SCH (09:53)
--- NOTE | 2018-03-18 15:02 | DS ---
DATE OF DISCHARGE: 03/18/2018 HOSPITAL SUMMARY: A 53-year-old white female with a known COPD and chronic tobacco abuse, came in with increasing shortness of breath, wheezing, productive cough and general malaise. Chest x-ray was clear and laboratory studies unremarkable except for mild leukocytosis and a potassium of 2.9. Sputum culture is pending at this time. Blood cultures had no growth. She remained afebrile throughout the hospital stay, was on IV steroids throughout the hospital stay as well as oral azithromycin. She is comfortable to be followed as an outpatient at this point. FINAL DIAGNOSES: 1. Acute exacerbation of chronic obstructive pulmonary disease. 2. Acute bacterial bronchitis. 3. Hypokalemia. OPERATIONS, PROCEDURES, COMPLICATIONS, AND CONSULTATIONS: None. DISPOSITION: She will take 5 more days of azithromycin 250 mg daily, prednisone taper over the next 10 days. Continue home meds including the nebulizer and inhalers that she uses and office followup as needed. We will contact her if the sputum culture dictates different antibiotic coverage as she certainly is at risk for gram negatives or Pseudomonas. IMMUNIZATIONS: Up-to-date. PROGNOSIS: Guarded. CESARIO MACKEY MD DR: NOVA/aileen JOB#: [id number] / [id number]
== END 2018-03-18 10:20 | disposition home or self-care (01) | DRG 191 ==
LOC: ER 17:57 → 5 SOUTH 19:10
PROVIDERS: ADMIT Family Medicine; ATTEND Family Medicine
DX: J44.1 Chronic obstructive pulmonary disease with (acute) exacerbation (principal); E44.1 Mild protein-calorie malnutrition; J44.0 Chronic obstructive pulmonary disease with (acute) lower respiratory infection; J20.9 Acute bronchitis, unspecified; K21.9 Gastro-esophageal reflux disease without esophagitis; G89.29 Other chronic pain; F17.210 Nicotine dependence, cigarettes, uncomplicated; F12.90 Cannabis use, unspecified, uncomplicated; E11.9 Type 2 diabetes mellitus without complications; E87.6 Hypokalemia; Z88.6 Allergy status to analgesic agent; Z88.2 Allergy status to sulfonamides; Z91.048 Other nonmedicinal substance allergy status; Z79.84 Long term (current) use of oral hypoglycemic drugs; Z68.34 Body mass index [BMI] 34.0-34.9, adult
CPT/HCPCS: 36415; 71046; 80048; 80053; 83605; 83735; 84132; 84484; 85025; 87040; 87070; 87205; 93005; 94640; 94760; 96361; 96365; 96368; 96375; J0456; J0690; J2920; J2930; J7030; J7512; J7613; J7620; J7626; Q0144; 99285-25

== ENCOUNTER 2018-07-27 21:50 | Inpatient (IN) | payer MEDICARE ==
[~2018-07-27] VITALS: Ht 170.2 cm; Wt 104.8 kg
[~2018-07-27 21:50] MED LIST changes: -HYDR-2758 PO; +HYDR-2761 PO; -HYDR-2762 PO; +HYDR-2765 PO; +OMEP20CA10 PO; -OMEP20CA9 PO
[2018-07-27] MEDS ORDERED: IPRATRPIUM/ALBUTEROL 0.5/2.5MG 3 ML NEBU. NEB ONE (22:15)
[2018-07-27 22:20] LABS: BASO # 0.3 x10^3/uL (0.0-0.2); BASO % 1 % (0-3); EOS # 0.7 x10^3/uL (0.0-0.7); EOS % 4 % (0-3); HEMOGLOBIN 15.6 g/dL (12.0-15.5); LYMPH # 9.2 x10^3/uL (1.0-4.8); LYMPH % 51 % (24-48); MEAN CORPUSCULAR HEMOGLOBIN 30 pg (25-35); MEAN CORPUSCULAR HGB CONC 33 g/dL (31-37); MEAN CORPUSCULAR VOLUME 91 fL (79-100); MONO # 0.9 x10^3/uL (0.0-1.1); MONO % 5 % (0-9); NEUT % 39 % (31-73); PLATELET COUNT 449 x10^3/uL (140-400); RED BLOOD COUNT 5.19 x10^6/uL (3.50-5.40); RED CELL DISTRIBUTION WIDTH 13.7 % (11.5-14.5); WHITE BLOOD COUNT 18.2 x10^3/uL (4.0-11.0)
[2018-07-27 22:36] LABS: BASE EXCESS COOX 2 mmol/L (-3-3); HCO3 COOX 30 mmol/L (21-28); METHEMOGLOBIN 0.3 % (0.0-1.9); OXYHEMOGLOBIN 94.6 %; PCO2 COOX 56 mmHg (35-46); PO2 COOX 210 mmHg (75-108); SAT O2 COOX 99 % (92-99)
[2018-07-27 22:38] LABS: CALCIUM 8.9 mg/dL (8.5-10.1); GFR 57.8; POTASSIUM 3.5 mmol/L (3.5-5.1)
[2018-07-27 22:44] LABS: ALBUMIN 3.4 g/dL (3.4-5.0); ALBUMIN/GLOBULIN RATIO 0.7 (1.0-1.7); TOTAL BILIRUBIN 0.5 mg/dL (0.2-1.0)
--- NOTE | 2018-07-27 22:57 | RAD ---
PORTABLE CHEST 1V History: Dyspnea, hypoxia Comparison: 03/15/2018 Findings: 2 AP views of the chest are submitted. Tips of the costophrenic sulci were not included. There is no pneumothorax or significant pleural fluid. Heart size is within normal limits. No new infiltrate is identified. Impression: 1. No acute radiographic abnormality is identified, tips of the costophrenic sulci not excluded. Electronically signed by: Romario Fu MD (07/27/2018 10:55 PM) [facility]
[2018-07-27 23:09] LABS: BILIRUBIN,URINE NEGATIVE (NEG); CLARITY,URINE CLEAR; COLOR,URINE YELLOW; NITRITE,URINE NEGATIVE (NEG); PH,URINE 5.5; PROTEIN,URINE NEGATIVE (NEG-TRACE); UROBILINOGEN,URINE 0.2 mg/dL (0.2 mg/dL)
[2018-07-27 23:17] LABS: BACTERIA,URINE 0 /HPF (0-FEW); RBC,URINE OCC /HPF (0-2); WBC,URINE OCC /HPF (0-4)
[2018-07-27 23:22] LABS: INFLUENZA A PATIENT NEGATIVE (NEGATIVE); INFLUENZA B PATIENT NEGATIVE (NEGATIVE)
[2018-07-27] MEDS ORDERED: ONDANSETRON PF 4 MG/2 ML VIAL. IV PRN (23:30)
[2018-07-27] MEDS ORDERED: ACETAMINOPHEN 325 MG TABLET. PO PRN (23:30)
[2018-07-27] MEDS ORDERED: DEXTROSE 50% 25 GM / 50ML DISP.SYRIN. IV PRN (23:30)
--- NOTE | 2018-07-27 23:34 | PHYS DOC ---
Past Medical History Past Medical History: Asthma, COPD, GERD, Other Additional Past Medical Histor: chronic pain Past Surgical History: Tubal ligation Additional Past Surgical Histo: eye, teeth extraction Alcohol Use: Occasionally Drug Use: Marijuana Adult General Chief Complaint Chief Complaint: SHORTNESS OF BREATH HPI HPI 53 y/o female presents with progressive shortness of breath x 1 week. Hx of COPD. Reports worse with exertion and upon deep inspiration. Reports some substernal chest discomfort/tightness. Denies fever/chills. Denies leg swelling or calves tenderness. Denies trauma. Patient reports that she has home O2 which she periodically wears but does so inconsistently. Review of Systems Review of Systems Constitutional: Denies fever or chills [] Eyes: Denies change in visual acuity, redness, or eye pain [] HENT: Denies nasal congestion or sore throat [] Respiratory: Reports cough and shortness of breath [] Cardiovascular: Reports substernal chest pain with deep inspiration, denies palpitations GI: Denies nausea, vomiting, or diarrhea [] : Denies dysuria or hematuria [] Musculoskeletal: Denies back pain or joint pain [] Integument: Denies rash or skin lesions [] Neurologic: Denies headache, focal weakness or sensory changes [] Complete systems were reviewed and found to be within normal limits, except as documented in this note. Current Medications Current Medications Current Medications Medications (Trade) Dose Ordered Sig/Jazzy Start Time Stop Time Status Last Admin Dose Admin Albuterol/ Ipratropium (Duoneb) 3 ml 1X ONCE 07/27/18 22:15 07/27/18 22:16 DC 07/27/18 22:07 3 ML Allergies Allergies Allergies Coded Allergies Type Severity Reaction Last Updated Verified Sulfa (Sulfonamide Antibiotics) Allergy Intermediate 05/02/15 Yes coconut oil Allergy Intermediate COCONUT 08/10/13 Yes ibuprofen Allergy Intermediate 05/02/15 Yes adhesive Adverse Reaction Mild Rash 08/10/13 Yes Physical Exam Physical Exam Constitutional: Well developed, well nourished, no acute distress, non-toxic appearance. [] HENT: Normocephalic, atraumatic, oropharynx moist Eyes: Conjunctiva normal, no discharge. [] Neck: Normal range of motion, no tenderness, supple, no stridor. [] Cardiovascular: Heart rate regular rhythm, no murmur [] Lungs & Thorax: Diminished breath sounds, inspiratory wheezes noted, Abdomen: Soft, no tenderness Skin: Warm, dry, no erythema, no rash. [] Extremities: No calves tenderness, ROM intact, no edema. [] Neurologic: Alert and oriented X 3, normal motor function, normal sensory function, no focal deficits noted. [] Psychologic: Affect normal, judgement normal, mood normal. [] Current Patient Data Vital Signs Vital Signs Date Time Temp Pulse Resp B/P (MAP) Pulse Ox O2 Delivery O2 Flow Rate FiO2 07/27/18 22:57 109 119/82 (94) 100 07/27/18 22:39 BiPAP/CPAP 07/27/18 21:55 96.7 24 96.7 Lab Values Laboratory Tests Test 07/27/18 22:00 07/27/18 22:05 07/27/18 22:34 07/27/18 22:40 Influenza Type A Antigen Negative (NEGATIVE) Influenza Type B Antigen Negative (NEGATIVE) White Blood Count 18.2 x10^3/uL (4.0-11.0) H Red Blood Count 5.19 x10^6/uL (3.50-5.40) Hemoglobin 15.6 g/dL (12.0-15.5) H Hematocrit 47.0 % (36.0-47.0) Mean Corpuscular Volume 91 fL (79-100) Mean Corpuscular Hemoglobin 30 pg (25-35) Mean Corpuscular Hemoglobin Concent 33 g/dL (31-37) Red Cell Distribution Width 13.7 % (11.5-14.5) Platelet Count 449 x10^3/uL (140-400) H Neutrophils (%) (Auto) 39 % (31-73) Lymphocytes (%) (Auto) 51 % (24-48) H Monocytes (%) (Auto) 5 % (0-9) Eosinophils (%) (Auto) 4 % (0-3) H Basophils (%) (Auto) 1 % (0-3) Neutrophils # (Auto) 7.0 x10^3uL (1.8-7.7) Lymphocytes # (Auto) 9.2 x10^3/uL (1.0-4.8) H Monocytes # (Auto) 0.9 x10^3/uL (0.0-1.1) Eosinophils # (Auto) 0.7 x10^3/uL (0.0-0.7) Basophils # (Auto) 0.3 x10^3/uL (0.0-0.2) H Segmented Neutrophils % 46 % (35-66) Lymphocytes % 40 % (24-48) Atypical Lymphocytes % (Manual) 7 % (0-0) H Monocytes % 3 % (0-10) Eosinophils % 4 % (0-5) Platelet Estimate Increased (ADEQUATE) Large Platelets Occ Giant Platelets Occ Polychromasia Slight Sodium Level 143 mmol/L (136-145) Potassium Level 3.5 mmol/L (3.5-5.1) Chloride Level 101 mmol/L (98-107) Carbon Dioxide Level 33 mmol/L (21-32) H Anion Gap 9 (6-14) Blood Urea Nitrogen 12 mg/dL (7-20) Creatinine 1.0 mg/dL (0.6-1.0) Estimated GFR (Cockcroft-Gault) 57.8 BUN/Creatinine Ratio 12 (6-20) Glucose Level 144 mg/dL (70-99) H Lactic Acid Level 1.3 mmol/L (0.4-2.0) Calcium Level 8.9 mg/dL (8.5-10.1) Total Bilirubin 0.5 mg/dL (0.2-1.0) Aspartate Amino Transferase (AST) 19 U/L (15-37) Alanine Aminotransferase (ALT) 28 U/L (14-59) Alkaline Phosphatase 128 U/L (46-116) H Creatine Kinase 131 U/L (26-192) Creatine Kinase MB (Mass) 1.1 ng/mL (0.0-3.6) Creatine Kinase MB Relative Index 0.8 % (0-4) Troponin I Quantitative < 0.017 ng/mL (0.000-0.055) [id number] Natriuretic Peptide 79 pg/mL (0-124) Total Protein 8.0 g/dL (6.4-8.2) Albumin 3.4 g/dL (3.4-5.0) Albumin/Globulin Ratio 0.7 (1.0-1.7) L O2 Saturation 99 % (92-99) Arterial Blood pH 7.34 (7.35-7.45) L Arterial Blood pCO2 at Patient Temp 56 mmHg (35-46) H Arterial Blood pO2 at Patient Temp 210 mmHg (75-108) H Arterial Blood HCO3 30 mmol/L (21-28) H Arterial Blood Base Excess 2 mmol/L (-3-3) Oxyhemoglobin 94.6 % Methemoglobin 0.3 % (0.0-1.9) Carbon Monoxide, Quantitative 3.8 % (0.0-1.9) H FiO2 60 Urine Collection Type U cath Urine Color Yellow Urine Clarity Clear Urine pH 5.5 Urine Specific Deputy 1.010 Urine Protein Negative mg/dL (NEG-TRACE) Urine Glucose (UA) Negative mg/dL (NEG) Urine Ketones (Stick) Negative mg/dL (NEG) Urine Blood Small (NEG) Urine Nitrite Negative (NEG) Urine Bilirubin Negative (NEG) Urine Urobilinogen Dipstick 0.2 mg/dL (0.2 mg/dL) Urine Leukocyte Esterase Negative (NEG) Urine RBC Occ /HPF (0-2) Urine WBC Occ /HPF (0-4) Urine Squamous Epithelial Cells None /LPF Urine Bacteria 0 /HPF (0-FEW) Laboratory Tests 07/27/18 22:05 Laboratory Tests 07/27/18 22:05 EKG EKG @2201 Sinus tachycardia at 108bpm, significant wandering baseline due to respiratory motion, NO ST elevation Radiology/Procedures Radiology/Procedures PROCEDURE: PORTABLE CHEST 1V PORTABLE CHEST 1V History: Dyspnea, hypoxia Comparison: 03/15/2018 Findings: 2 AP views of the chest are submitted. Tips of the costophrenic sulci were not included. There is no pneumothorax or significant pleural fluid. Heart size is within normal limits. No new infiltrate is identified. Impression: 1. No acute radiographic abnormality is identified, tips of the costophrenic sulci not excluded. Electronically signed by: Romario Fu MD (07/27/2018 10:55 PM) [facility] Course & Med Decision Making Course & Med Decision Making Pertinent Labs and Imaging studies reviewed. (See chart for details) Patient with pmh of COPD presents with progressive dyspnea x 1 week. Patient noted to be 74% on RA. BIPAP and respiratory nebs provided with interval improvement. Reports pain with inspiration. Denies trauma. No calves tenderness. EKG stable. Labs obtained and posted to chart. Troponin WNL. CXR without acute process. Patient requiring admission for further evaluation and treatment. Discussed with Dr. Andres (home planning consultant salesperson for Dr. Mackey, PCP), who is in agreement with admission. Discussed findings and plan with patient and family, who acknowledges understanding and agreement. Dragon Disclaimer Dragon Disclaimer This electronic medical record was generated, in whole or in part, using a voice recognition dictation system. Departure Departure Impression: Primary Impression: COPD exacerbation Additional Impression: Hypoxia Disposition: ADMITTED INPATIENT Admitting Physician: Pao Andres (covering for Dr. Mackey) Condition: GUARDED Referrals: CESARIO MACKEY MD (PCP) Critical Care Time Critical care time was 30 minutes which includes time at bedside, spent in discussion of patient's care with specialists and/or family members, with interpretation of laboratory and/or radiological studies and is exclusive of procedures. Problem Qualifiers CRYSTAL MARADIAGA DO Jul 27, 2018 23:34
[2018-07-27 23:38] LABS: % EOS 4 % (0-5); % MONOS 3 % (0-10); % SEGS 46 % (35-66); PLT ESTIMATE INCREASED (ADEQUATE)
[2018-07-27 23:39] LABS: % ATYL 7 % (0-0); % LYMPHS 40 % (24-48); POLYCHROMASIA SLIGHT
[2018-07-27] MEDS ORDERED: ASPIRIN 325 MG TABLET PO ONE (23:45)
[2018-07-28] VITALS (11 sets, daily range): BP systolic 84–121; BP diastolic 47–83
[2018-07-28] MEDS ORDERED: ATOR10TA PO (01:33)
--- NOTE | 2018-07-28 06:49 | EKG ---
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
[2018-07-28] MEDS: INSULIN LISPRO 300 UNITS/3 ML INSULN.PEN. SQ SCH ×3 (08:00→17:41)
[2018-07-28] MEDS: IPRATRPIUM/ALBUTEROL 0.5/2.5MG 3 ML NEBU. NEB SCH ×4 (08:21→19:38)
--- NOTE | 2018-07-28 08:30 | PDOC1 ---
H & P. HPI: Ms. Miles is a 53-year-old female with past medical history of COPD, nicotine dependence, type 2 diabetes, GERD, anxiety, depression, who presented to the emergency room yesterday for increasing shortness of breath and productive cough. She was noted to be in acute COPD exacerbation with hypercapnic respiratory failure and was placed on BiPAP in the emergency room. Labs were remarkable for pH of 7.34, PaCO2 of 56, negative flu, leukocytosis at 18.5. Lactic acid, BNP, CK, troponins 3 were all negative. Labs are otherwise unremarkable. Chest x-ray was unremarkable. EKG was unremarkable for acute ST elevation or T-wave inversion. She improved on BiPAP and was admitted to the ICU for further evaluation and management. ROS: Constitutional: Denies fever, fatigue, chills HEENT: Denies sore throat, vision changes Cardio: Denies chest pain, syncope, palpitations, edema Pulmonary: Admits shortness of breath, cough, wheezing GI: Denies nausea, vomiting, diarrhea, constipation Skin: Denies new lesions Neuro: Denies weakness, paresthesias ED COURSE: Patient was given DuoNeb treatments in the emergency room, although note no record of being given antibiotics or steroids. PMH: As above FAMILY HX: Father had cancer. Mother had diabetes and heart disease. Sibling has cancer. SOCIAL HX: Long-term current smoker times approximately 40+ pack years. Denies alcohol use , Recreational drug use SURGICAL HX: Tubal ligation, cholecystectomy, Lasix surgery. MEDS: Reviewed and reconciled ALLERGIES: Reviewed PE: Alert, oriented, no acute distress EOMI, sclera non-icteric Neck supple RRR, no murmur Coarse breath sounds throughout with wheezing, mild tachypnea without much increased work of breathing Soft, NT, ND, normal bowel sounds, no rebound, guarding. No edema, cyanosis. Normal capillary refill. Calm, cooperative, mood/affect within normal limits ASSESSMENT & PLAN: Acute hypoxic hypercapnic respiratory failure secondary to COPD exacerbation Nicotine dependence Type 2 diabetes GERD Anxiety Depression Pulmonology has been consulted Prednisone PO, Rocephin/Azithro, Duonebs, O2 PRN Encouraged smoking cessation Doing well off bipap currently Titrate down on O2 as able HERNESTO ALVARADO MD Jul 28, 2018 08:30
[2018-07-28] MEDS: DULoxetine HCL 30 MG CAPSULE.DR PO SCH (09:21)
[2018-07-28] MEDS: PANTOPRAZOLE 40 MG TABLET.DR. PO SCH (09:21)
[2018-07-28] MEDS ORDERED: AZITHRMYCN 500MG IVPB FOR OMNI 250 ML IV ONE (10:00)
[2018-07-28] MEDS: predniSONE 10 MG TABLET PO SCH (10:11)
[2018-07-28] MEDS: cefTRIAXone IV Push 1 GM VIAL. IVP SCH (10:11)
[2018-07-28] MEDS ORDERED: AZITHROMYCIN 500 MG in IV NORMAL SALINE 250ML 250 ML IV ONE (10:30)
[2018-07-28] MEDS: ALBUTEROL SULFATE 2.5 MG/3 ML NEBU. NEB SCH ×3 (12:00→19:37)
--- NOTE | 2018-07-28 12:03 | PDOC ---
PULMONARY PROGRESS NOTES Vitals Vital Signs Date Time Temp Pulse Resp B/P (MAP) Pulse Ox O2 Delivery O2 Flow Rate FiO2 07/28/18 11:00 97.9 87 23 96/54 (68) 97 Nasal Cannula 3.0 97.9 Labs Laboratory Tests Test 07/27/18 22:00 07/27/18 22:05 07/27/18 22:34 07/27/18 22:40 Influenza Type A Antigen Negative (NEGATIVE) Influenza Type B Antigen Negative (NEGATIVE) White Blood Count 18.2 x10^3/uL (4.0-11.0) Red Blood Count 5.19 x10^6/uL (3.50-5.40) Hemoglobin 15.6 g/dL (12.0-15.5) Hematocrit 47.0 % (36.0-47.0) Mean Corpuscular Volume 91 fL (79-100) Mean Corpuscular Hemoglobin 30 pg (25-35) Mean Corpuscular Hemoglobin Concent 33 g/dL (31-37) Red Cell Distribution Width 13.7 % (11.5-14.5) Platelet Count 449 x10^3/uL (140-400) Neutrophils (%) (Auto) 39 % (31-73) Lymphocytes (%) (Auto) 51 % (24-48) Monocytes (%) (Auto) 5 % (0-9) Eosinophils (%) (Auto) 4 % (0-3) Basophils (%) (Auto) 1 % (0-3) Neutrophils # (Auto) 7.0 x10^3uL (1.8-7.7) Lymphocytes # (Auto) 9.2 x10^3/uL (1.0-4.8) Monocytes # (Auto) 0.9 x10^3/uL (0.0-1.1) Eosinophils # (Auto) 0.7 x10^3/uL (0.0-0.7) Basophils # (Auto) 0.3 x10^3/uL (0.0-0.2) Segmented Neutrophils % 46 % (35-66) Lymphocytes % 40 % (24-48) Atypical Lymphocytes % (Manual) 7 % (0-0) Monocytes % 3 % (0-10) Eosinophils % 4 % (0-5) Platelet Estimate Increased (ADEQUATE) Large Platelets Occ Giant Platelets Occ Polychromasia Slight Sodium Level 143 mmol/L (136-145) Potassium Level 3.5 mmol/L (3.5-5.1) Chloride Level 101 mmol/L (98-107) Carbon Dioxide Level 33 mmol/L (21-32) Anion Gap 9 (6-14) Blood Urea Nitrogen 12 mg/dL (7-20) Creatinine 1.0 mg/dL (0.6-1.0) Estimated GFR (Cockcroft-Gault) 57.8 BUN/Creatinine Ratio 12 (6-20) Glucose Level 144 mg/dL (70-99) Lactic Acid Level 1.3 mmol/L (0.4-2.0) Calcium Level 8.9 mg/dL (8.5-10.1) Total Bilirubin 0.5 mg/dL (0.2-1.0) Aspartate Amino Transf (AST/SGOT) 19 U/L (15-37) Alanine Aminotransferase (ALT/SGPT) 28 U/L (14-59) Alkaline Phosphatase 128 U/L (46-116) Creatine Kinase 131 U/L (26-192) Creatine Kinase MB (Mass) 1.1 ng/mL (0.0-3.6) Creatine Kinase MB Relative Index 0.8 % (0-4) Troponin I Quantitative < 0.017 ng/mL (0.000-0.055) ZC-Cht-U-Type Natriuretic Peptide 79 pg/mL (0-124) Total Protein 8.0 g/dL (6.4-8.2) Albumin 3.4 g/dL (3.4-5.0) Albumin/Globulin Ratio 0.7 (1.0-1.7) O2 Saturation 99 % (92-99) Arterial Blood pH 7.34 (7.35-7.45) Arterial Blood pCO2 at Patient Temp 56 mmHg (35-46) Arterial Blood pO2 at Patient Temp 210 mmHg (75-108) Arterial Blood HCO3 30 mmol/L (21-28) Arterial Blood Base Excess 2 mmol/L (-3-3) Oxyhemoglobin 94.6 % Methemoglobin 0.3 % (0.0-1.9) Carbon Monoxide, Quantitative 3.8 % (0.0-1.9) FiO2 60 Urine Collection Type U cath Urine Color Yellow Urine Clarity Clear Urine pH 5.5 Urine Specific [place] 1.010 Urine Protein Negative mg/dL (NEG-TRACE) Urine Glucose (UA) Negative mg/dL (NEG) Urine Ketones (Stick) Negative mg/dL (NEG) Urine Blood Small (NEG) Urine Nitrite Negative (NEG) Urine Bilirubin Negative (NEG) Urine Urobilinogen Dipstick 0.2 mg/dL (0.2 mg/dL) Urine Leukocyte Esterase Negative (NEG) Urine RBC Occ /HPF (0-2) Urine WBC Occ /HPF (0-4) Urine Squamous Epithelial Cells None /LPF Urine Bacteria 0 /HPF (0-FEW) Test 07/28/18 02:40 07/28/18 05:30 07/28/18 08:30 Troponin I Quantitative < 0.017 ng/mL (0.000-0.055) < 0.017 ng/mL (0.000-0.055) Glucose (Fingerstick) 133 mg/dL (70-99) Laboratory Tests Test 07/27/18 22:00 07/27/18 22:05 07/27/18 22:34 07/27/18 22:40 Influenza Type A Antigen Negative (NEGATIVE) Influenza Type B Antigen Negative (NEGATIVE) White Blood Count 18.2 x10^3/uL (4.0-11.0) Red Blood Count 5.19 x10^6/uL (3.50-5.40) Hemoglobin 15.6 g/dL (12.0-15.5) Hematocrit 47.0 % (36.0-47.0) Mean Corpuscular Volume 91 fL (79-100) Mean Corpuscular Hemoglobin 30 pg (25-35) Mean Corpuscular Hemoglobin Concent 33 g/dL (31-37) Red Cell Distribution Width 13.7 % (11.5-14.5) Platelet Count 449 x10^3/uL (140-400) Neutrophils (%) (Auto) 39 % (31-73) Lymphocytes (%) (Auto) 51 % (24-48) Monocytes (%) (Auto) 5 % (0-9) Eosinophils (%) (Auto) 4 % (0-3) Basophils (%) (Auto) 1 % (0-3) Neutrophils # (Auto) 7.0 x10^3uL (1.8-7.7) Lymphocytes # (Auto) 9.2 x10^3/uL (1.0-4.8) Monocytes # (Auto) 0.9 x10^3/uL (0.0-1.1) Eosinophils # (Auto) 0.7 x10^3/uL (0.0-0.7) Basophils # (Auto) 0.3 x10^3/uL (0.0-0.2) Segmented Neutrophils % 46 % (35-66) Lymphocytes % 40 % (24-48) Atypical Lymphocytes % (Manual) 7 % (0-0) Monocytes % 3 % (0-10) Eosinophils % 4 % (0-5) Platelet Estimate Increased (ADEQUATE) Large Platelets Occ Giant Platelets Occ Polychromasia Slight Sodium Level 143 mmol/L (136-145) Potassium Level 3.5 mmol/L (3.5-5.1) Chloride Level 101 mmol/L (98-107) Carbon Dioxide Level 33 mmol/L (21-32) Anion Gap 9 (6-14) Blood Urea Nitrogen 12 mg/dL (7-20) Creatinine 1.0 mg/dL (0.6-1.0) Estimated GFR (Cockcroft-Gault) 57.8 BUN/Creatinine Ratio 12 (6-20) Glucose Level 144 mg/dL (70-99) Lactic Acid Level 1.3 mmol/L (0.4-2.0) Calcium Level 8.9 mg/dL (8.5-10.1) Total Bilirubin 0.5 mg/dL (0.2-1.0) Aspartate Amino Transf (AST/SGOT) 19 U/L (15-37) Alanine Aminotransferase (ALT/SGPT) 28 U/L (14-59) Alkaline Phosphatase 128 U/L (46-116) Creatine Kinase 131 U/L (26-192) Creatine Kinase MB (Mass) 1.1 ng/mL (0.0-3.6) Creatine Kinase MB Relative Index 0.8 % (0-4) Troponin I Quantitative < 0.017 ng/mL (0.000-0.055) UM-Cvi-A-Type Natriuretic Peptide 79 pg/mL (0-124) Total Protein 8.0 g/dL (6.4-8.2) Albumin 3.4 g/dL (3.4-5.0) Albumin/Globulin Ratio 0.7 (1.0-1.7) O2 Saturation 99 % (92-99) Arterial Blood pH 7.34 (7.35-7.45) Arterial Blood pCO2 at Patient Temp 56 mmHg (35-46) Arterial Blood pO2 at Patient Temp 210 mmHg (75-108) Arterial Blood HCO3 30 mmol/L (21-28) Arterial Blood Base Excess 2 mmol/L (-3-3) Oxyhemoglobin 94.6 % Methemoglobin 0.3 % (0.0-1.9) Carbon Monoxide, Quantitative 3.8 % (0.0-1.9) FiO2 60 Urine Collection Type U cath Urine Color Yellow Urine Clarity Clear Urine pH 5.5 Urine Specific [place] 1.010 Urine Protein Negative mg/dL (NEG-TRACE) Urine Glucose (UA) Negative mg/dL (NEG) Urine Ketones (Stick) Negative mg/dL (NEG) Urine Blood Small (NEG) Urine Nitrite Negative (NEG) Urine Bilirubin Negative (NEG) Urine Urobilinogen Dipstick 0.2 mg/dL (0.2 mg/dL) Urine Leukocyte Esterase Negative (NEG) Urine RBC Occ /HPF (0-2) Urine WBC Occ /HPF (0-4) Urine Squamous Epithelial Cells None /LPF Urine Bacteria 0 /HPF (0-FEW) Test 07/28/18 02:40 07/28/18 05:30 07/28/18 08:30 Troponin I Quantitative < 0.017 ng/mL (0.000-0.055) < 0.017 ng/mL (0.000-0.055) Glucose (Fingerstick) 133 mg/dL (70-99) Medications Active Scripts Medications Dose Route/Sig Max Daily Dose Days Date Category Lipitor (Atorvastatin Calcium) 10 Mg Tablet 1 Tab PO DAILY 07/28/18 Reported Metformin Hcl 500 Mg Tablet 500 Mg PO BIDWMEALS 04/04/17 Reported Hydrocodone-Apap 7.5-325 (Hydrocodone Bit/Acetaminophen) 1 Each Tablet 1 Tab PO TID 04/04/17 Reported Omeprazole 40 Mg Capsule.dr 1 Cap PO DAILY 05/02/15 Rx Duloxetine Hcl 60 Mg Capsule.dr 60 Mg PO DAILY 04/29/15 Reported Symbicort 160-4.5 Mcg Inhaler (Budesonide/Formoterol Fumarate) 10.2 Gm Hfa.aer.ad 2 Puff IH BID 08/02/14 Reported Albuterol Sulfate Neb Soln (Albuterol Sulfate) 2.5 Mg/3 Ml Vial.neb 2.5 Mg IH Q4HRS 08/10/13 Reported Albuterol Sulfate Hfa Inhaler (Albuterol Sulfate) 8.5 Gm Hfa.aer.ad 8.5 Gm IH PRN Q2HR 08/10/13 Reported Cyclobenzaprine Hcl 10 Mg Tablet 10 Mg PO TID 08/10/13 Reported Impression . NOTE DICTATED AGREE WITH CURRENT RX THANKS ROBINA MOREL MD Jul 28, 2018 12:03
[2018-07-28] MEDS: metFORMIN 500 MG TABLET PO SCH (16:43)
[2018-07-28] MEDS: BUDESONIDE 0.5 MG/2 ML NEBU. NEB SCH (19:38)
[2018-07-28] MEDS: CYCLOBENZAPRINE 10 MG TABLET. PO PRN (20:30)
[2018-07-28] MEDS: LACTOBACILLUS RHAMNOSUS GG 1 CAPSULE. PO SCH (20:30)
[2018-07-28] MEDS: ATORVASTATIN CALCIUM 10 MG TABLET. PO SCH (20:30)
--- NOTE | 2018-07-29 01:12 | CONS ---
DATE OF CONSULTATION: 07/28/2018 ATTENDING PHYSICIAN: Dr. Pao Andres. REASON FOR CONSULTATION: The patient is seen in pulmonary consultation at the request of Dr. Andres for acute hypercapnic respiratory failure requiring noninvasive ventilation. HISTORY OF PRESENT ILLNESS: The patient is a 53-year-old with clinically severe COPD, continues to smoke, has smoked most of her adult life. She last was admitted back in February with exacerbation of COPD. She presented with increasing shortness of breath, unable to walk from the chair to the other side of the room. She had a cough, mostly nonproductive. She presented, she had an arterial blood gas revealing pH of 7.34, PaCO2 of 56, pO2 of 210. She was placed on BiPAP. She is currently in Intensive Care Unit. Chest x-ray was reviewed. There was no acute infiltrates. Influenza serology was negative. White count was elevated. Electrolytes were noted. Chest x-ray, no acute infiltrates. VACCINATION HISTORY: The patient does not undergo flu vaccination. She is up-to-date on her pneumonia vaccination. PAST MEDICAL AND SURGICAL HISTORY: COPD, suspect severe tobacco dependent, previous hospitalization for acute exacerbation of COPD. She also has a history of sleep apnea, colon polyps, hemorrhoids. She is status post cholecystectomy. There is also history of gastroesophageal reflux, urinary incontinence, osteoarthritis, degenerative joint disease, chronic pain, diabetes, bipolar disorder, depression, anxiety, tobacco dependence. ALLERGIES: SULFA, IBUPROFEN. REVIEW OF SYSTEMS: As indicated above, otherwise, a 10-point system was reviewed and negative. CURRENT MEDICATIONS: List was reviewed. At home, the patient was utilizing albuterol. She ran out of DuoNeb and Symbicort. PHYSICAL EXAMINATION: GENERAL: On examination, the patient was in no respiratory distress. VITAL SIGNS: Stable. O2 saturation was greater than 92%. HEENT: Eyes, the sclerae were nonicteric. NECK: Jugular venous distention was not elevated. No lymphadenopathy. CHEST: Full expansion. LUNGS: Coarse breath sounds, expiratory wheeze, scattered rhonchi. CARDIOVASCULAR: Regular rate and rhythm with S1, S2, no S3. ABDOMEN: Soft, nontender, nondistended. EXTREMITIES: No clubbing, cyanosis, or edema. Labs and chest x-ray as indicated above. IMPRESSION: 1. Acute hypercapnic hypoxemic respiratory failure. 2. Acute exacerbation of chronic obstructive pulmonary disease. 3. Tobacco dependence. 4. Type 2 diabetes. 5. Gastroesophageal reflux. 6. Other comorbidities as listed above. PLAN: 1. Continue p.r.n. BiPAP. 2. Antibiotics and steroids. 3. The patient instructed on the importance of discontinuing tobacco use. 4. Check spirometry. 5. A 6-minute walk prior to discharge. Dr. Andres, I do appreciate the privilege in sharing in the patient's care. ROBINA MOREL MD DR: SANDY/aileen JOB#: [id number] / [id number]
[2018-07-29 03:11] VITALS: BP 97/63
[2018-07-29] MEDS: ALBUTEROL SULFATE 2.5 MG/3 ML NEBU. NEB SCH ×5 (06:29→19:56)
[2018-07-29] MEDS: BUDESONIDE 0.5 MG/2 ML NEBU. NEB SCH ×2 (06:29→19:55)
--- NOTE | 2018-07-29 07:50 | PDOC ---
SUBJECTIVE Subjective Doing ok this morning, about same as yesterday. Having more chronic back pain d/ t being in bed. Denies productive cough. OBJECTIVE Objective Reviewed. Vital Signs Vital Signs Date Time Temp Pulse Resp B/P (MAP) Pulse Ox O2 Delivery O2 Flow Rate FiO2 07/29/18 06:22 Nasal Cannula 2.5 07/29/18 03:11 98.0 98 21 97/63 (74) 96 Nasal Cannula 3.0 98.0 07/28/18 23:00 97.7 95 21 100/66 (77) 97 Nasal Cannula 3.0 97.7 07/28/18 20:00 Nasal Cannula 4.0 07/28/18 19:20 96 Nasal Cannula 2.5 07/28/18 19:00 97.6 88 21 90/47 (61) 96 Nasal Cannula 3.0 97.6 07/28/18 16:30 97 Nasal Cannula 2.5 07/28/18 15:00 97.7 88 21 111/75 (87) 96 Nasal Cannula 3.0 97.7 07/28/18 12:32 97 Nasal Cannula 2.5 07/28/18 11:00 97.9 87 23 96/54 (68) 97 Nasal Cannula 3.0 97.9 07/28/18 08:23 97 Nasal Cannula 4.0 07/28/18 08:00 Nasal Cannula 4.0 I & O Intake and Output 07/29/18 06:59 Intake Total 910 ml Output Total 3950 ml Balance -3040 ml Intake Oral 660 ml IV Total 250 ml Output Urine Total 3950 ml PHYSICAL EXAM Physical Exam Alert, oriented, no acute distress EOMI, sclera non-icteric Neck supple RRR, no murmur Coarse breath sounds throughout with wheezing, mild tachypnea with some increased work of breathing No edema, cyanosis. Calm, cooperative, mood/affect within normal limits ASSESSMENT/PLAN Assessment/Plan Acute hypoxic hypercapnic respiratory failure secondary to COPD exacerbation Nicotine dependence Type 2 diabetes GERD Anxiety Depression Pulmonology following Abx, Prednisone PO, Duonebs, O2 PRN Encouraged smoking cessation Titrate down on O2 as able COMMENT Lab Laboratory Tests Test 07/28/18 08:30 07/28/18 12:38 07/28/18 17:37 Glucose (Fingerstick) 133 mg/dL (70-99) 112 mg/dL (70-99) 186 mg/dL (70-99) HERNESTO ALVARADO MD Jul 29, 2018 07:50
[2018-07-29 08:00] VITALS: BP 96/69
[2018-07-29] MEDS: PANTOPRAZOLE 40 MG TABLET.DR. PO SCH (08:10)
[2018-07-29] MEDS: LACTOBACILLUS RHAMNOSUS GG 1 CAPSULE. PO SCH ×2 (08:10→20:46)
[2018-07-29] MEDS: DULoxetine HCL 30 MG CAPSULE.DR PO SCH (08:11)
[2018-07-29] MEDS: predniSONE 10 MG TABLET PO SCH (08:12)
[2018-07-29] MEDS: metFORMIN 500 MG TABLET PO SCH ×2 (08:12→17:21)
[2018-07-29] MEDS: AZITHROMYCIN 250 MG TABLET. PO SCH (08:13)
[2018-07-29] MEDS: CYCLOBENZAPRINE 10 MG TABLET. PO PRN ×3 (08:15→20:48)
[2018-07-29] MEDS: INSULIN LISPRO 300 UNITS/3 ML INSULN.PEN. SQ SCH ×3 (08:19→17:00)
[2018-07-29 08:51] LABS: BASO # 0.2 x10^3/uL (0.0-0.2); BASO % 1 % (0-3); EOS # 0.4 x10^3/uL (0.0-0.7); EOS % 2 % (0-3); HEMATOCRIT 43.4 % (36.0-47.0); LYMPH # 6.2 x10^3/uL (1.0-4.8); LYMPH % 31 % (24-48); MEAN CORPUSCULAR HEMOGLOBIN 29 pg (25-35); MEAN CORPUSCULAR HGB CONC 32 g/dL (31-37); MEAN CORPUSCULAR VOLUME 91 fL (79-100); MONO # 0.7 x10^3/uL (0.0-1.1); MONO % 3 % (0-9); NEUT # 12.6 x10^3uL (1.8-7.7); NEUT % 63 % (31-73); PLATELET COUNT 407 x10^3/uL (140-400); RED BLOOD COUNT 4.78 x10^6/uL (3.50-5.40); RED CELL DISTRIBUTION WIDTH 13.7 % (11.5-14.5)
[2018-07-29 08:59] LABS: CALCIUM 8.7 mg/dL (8.5-10.1); CREATININE 0.9 mg/dL (0.6-1.0); GFR 65.2; POTASSIUM 3.3 mmol/L (3.5-5.1)
--- NOTE | 2018-07-29 09:34 | PDOC ---
PULMONARY PROGRESS NOTES Subjective Pt feels less soa still cough and wheeze Vitals Vital Signs Date Time Temp Pulse Resp B/P (MAP) Pulse Ox O2 Delivery O2 Flow Rate FiO2 07/29/18 08:00 98.0 102 20 96/69 (78) 95 Nasal Cannula 2.0 98.0 ROS: No Nausea, No Chest Pain, No Abdominal Pain, No Increase Cough General: Alert Lungs: Wheezing Cardiovascular: S1, S2 Abdomen: Soft Neuro Exam: Alert Extremities: No Edema Skin: Warm Labs Laboratory Tests Test 07/27/18 22:00 07/27/18 22:05 07/27/18 22:34 07/27/18 22:40 Influenza Type A Antigen Negative (NEGATIVE) Influenza Type B Antigen Negative (NEGATIVE) White Blood Count 18.2 x10^3/uL (4.0-11.0) Red Blood Count 5.19 x10^6/uL (3.50-5.40) Hemoglobin 15.6 g/dL (12.0-15.5) Hematocrit 47.0 % (36.0-47.0) Mean Corpuscular Volume 91 fL (79-100) Mean Corpuscular Hemoglobin 30 pg (25-35) Mean Corpuscular Hemoglobin Concent 33 g/dL (31-37) Red Cell Distribution Width 13.7 % (11.5-14.5) Platelet Count 449 x10^3/uL (140-400) Neutrophils (%) (Auto) 39 % (31-73) Lymphocytes (%) (Auto) 51 % (24-48) Monocytes (%) (Auto) 5 % (0-9) Eosinophils (%) (Auto) 4 % (0-3) Basophils (%) (Auto) 1 % (0-3) Neutrophils # (Auto) 7.0 x10^3uL (1.8-7.7) Lymphocytes # (Auto) 9.2 x10^3/uL (1.0-4.8) Monocytes # (Auto) 0.9 x10^3/uL (0.0-1.1) Eosinophils # (Auto) 0.7 x10^3/uL (0.0-0.7) Basophils # (Auto) 0.3 x10^3/uL (0.0-0.2) Segmented Neutrophils % 46 % (35-66) Lymphocytes % 40 % (24-48) Atypical Lymphocytes % (Manual) 7 % (0-0) Monocytes % 3 % (0-10) Eosinophils % 4 % (0-5) Platelet Estimate Increased (ADEQUATE) Large Platelets Occ Giant Platelets Occ Polychromasia Slight Sodium Level 143 mmol/L (136-145) Potassium Level 3.5 mmol/L (3.5-5.1) Chloride Level 101 mmol/L (98-107) Carbon Dioxide Level 33 mmol/L (21-32) Anion Gap 9 (6-14) Blood Urea Nitrogen 12 mg/dL (7-20) Creatinine 1.0 mg/dL (0.6-1.0) Estimated GFR (Cockcroft-Gault) 57.8 BUN/Creatinine Ratio 12 (6-20) Glucose Level 144 mg/dL (70-99) Lactic Acid Level 1.3 mmol/L (0.4-2.0) Calcium Level 8.9 mg/dL (8.5-10.1) Total Bilirubin 0.5 mg/dL (0.2-1.0) Aspartate Amino Transf (AST/SGOT) 19 U/L (15-37) Alanine Aminotransferase (ALT/SGPT) 28 U/L (14-59) Alkaline Phosphatase 128 U/L (46-116) Creatine Kinase 131 U/L (26-192) Creatine Kinase MB (Mass) 1.1 ng/mL (0.0-3.6) Creatine Kinase MB Relative Index 0.8 % (0-4) Troponin I Quantitative < 0.017 ng/mL (0.000-0.055) WH-Hti-W-Type Natriuretic Peptide 79 pg/mL (0-124) Total Protein 8.0 g/dL (6.4-8.2) Albumin 3.4 g/dL (3.4-5.0) Albumin/Globulin Ratio 0.7 (1.0-1.7) O2 Saturation 99 % (92-99) Arterial Blood pH 7.34 (7.35-7.45) Arterial Blood pCO2 at Patient Temp 56 mmHg (35-46) Arterial Blood pO2 at Patient Temp 210 mmHg (75-108) Arterial Blood HCO3 30 mmol/L (21-28) Arterial Blood Base Excess 2 mmol/L (-3-3) Oxyhemoglobin 94.6 % Methemoglobin 0.3 % (0.0-1.9) Carbon Monoxide, Quantitative 3.8 % (0.0-1.9) FiO2 60 Urine Collection Type U cath Urine Color Yellow Urine Clarity Clear Urine pH 5.5 Urine Specific [place] 1.010 Urine Protein Negative mg/dL (NEG-TRACE) Urine Glucose (UA) Negative mg/dL (NEG) Urine Ketones (Stick) Negative mg/dL (NEG) Urine Blood Small (NEG) Urine Nitrite Negative (NEG) Urine Bilirubin Negative (NEG) Urine Urobilinogen Dipstick 0.2 mg/dL (0.2 mg/dL) Urine Leukocyte Esterase Negative (NEG) Urine RBC Occ /HPF (0-2) Urine WBC Occ /HPF (0-4) Urine Squamous Epithelial Cells None /LPF Urine Bacteria 0 /HPF (0-FEW) Test 07/28/18 01:00 07/28/18 02:40 07/28/18 05:30 07/28/18 08:30 Nasal Screen MRSA (PCR) Negative (Negative) Troponin I Quantitative < 0.017 ng/mL (0.000-0.055) < 0.017 ng/mL (0.000-0.055) Glucose (Fingerstick) 133 mg/dL (70-99) Test 07/28/18 12:38 07/28/18 17:37 07/29/18 08:09 07/29/18 08:25 Glucose (Fingerstick) 112 mg/dL (70-99) 186 mg/dL (70-99) 153 mg/dL (70-99) White Blood Count 20.0 x10^3/uL (4.0-11.0) Red Blood Count 4.78 x10^6/uL (3.50-5.40) Hemoglobin 14.0 g/dL (12.0-15.5) Hematocrit 43.4 % (36.0-47.0) Mean Corpuscular Volume 91 fL (79-100) Mean Corpuscular Hemoglobin 29 pg (25-35) Mean Corpuscular Hemoglobin Concent 32 g/dL (31-37) Red Cell Distribution Width 13.7 % (11.5-14.5) Platelet Count 407 x10^3/uL (140-400) Neutrophils (%) (Auto) 63 % (31-73) Lymphocytes (%) (Auto) 31 % (24-48) Monocytes (%) (Auto) 3 % (0-9) Eosinophils (%) (Auto) 2 % (0-3) Basophils (%) (Auto) 1 % (0-3) Neutrophils # (Auto) 12.6 x10^3uL (1.8-7.7) Lymphocytes # (Auto) 6.2 x10^3/uL (1.0-4.8) Monocytes # (Auto) 0.7 x10^3/uL (0.0-1.1) Eosinophils # (Auto) 0.4 x10^3/uL (0.0-0.7) Basophils # (Auto) 0.2 x10^3/uL (0.0-0.2) Sodium Level 139 mmol/L (136-145) Potassium Level 3.3 mmol/L (3.5-5.1) Chloride Level 102 mmol/L (98-107) Carbon Dioxide Level 33 mmol/L (21-32) Anion Gap 4 (6-14) Blood Urea Nitrogen 13 mg/dL (7-20) Creatinine 0.9 mg/dL (0.6-1.0) Estimated GFR (Cockcroft-Gault) 65.2 Glucose Level 139 mg/dL (70-99) Calcium Level 8.7 mg/dL (8.5-10.1) Laboratory Tests Test 07/28/18 12:38 07/28/18 17:37 07/29/18 08:09 07/29/18 08:25 Glucose (Fingerstick) 112 mg/dL (70-99) 186 mg/dL (70-99) 153 mg/dL (70-99) White Blood Count 20.0 x10^3/uL (4.0-11.0) Red Blood Count 4.78 x10^6/uL (3.50-5.40) Hemoglobin 14.0 g/dL (12.0-15.5) Hematocrit 43.4 % (36.0-47.0) Mean Corpuscular Volume 91 fL (79-100) Mean Corpuscular Hemoglobin 29 pg (25-35) Mean Corpuscular Hemoglobin Concent 32 g/dL (31-37) Red Cell Distribution Width 13.7 % (11.5-14.5) Platelet Count 407 x10^3/uL (140-400) Neutrophils (%) (Auto) 63 % (31-73) Lymphocytes (%) (Auto) 31 % (24-48) Monocytes (%) (Auto) 3 % (0-9) Eosinophils (%) (Auto) 2 % (0-3) Basophils (%) (Auto) 1 % (0-3) Neutrophils # (Auto) 12.6 x10^3uL (1.8-7.7) Lymphocytes # (Auto) 6.2 x10^3/uL (1.0-4.8) Monocytes # (Auto) 0.7 x10^3/uL (0.0-1.1) Eosinophils # (Auto) 0.4 x10^3/uL (0.0-0.7) Basophils # (Auto) 0.2 x10^3/uL (0.0-0.2) Sodium Level 139 mmol/L (136-145) Potassium Level 3.3 mmol/L (3.5-5.1) Chloride Level 102 mmol/L (98-107) Carbon Dioxide Level 33 mmol/L (21-32) Anion Gap 4 (6-14) Blood Urea Nitrogen 13 mg/dL (7-20) Creatinine 0.9 mg/dL (0.6-1.0) Estimated GFR (Cockcroft-Gault) 65.2 Glucose Level 139 mg/dL (70-99) Calcium Level 8.7 mg/dL (8.5-10.1) Medications Active Scripts Medications Dose Route/Sig Max Daily Dose Days Date Category Lipitor (Atorvastatin Calcium) 10 Mg Tablet 1 Tab PO DAILY 07/28/18 Reported Metformin Hcl 500 Mg Tablet 500 Mg PO BIDWMEALS 04/04/17 Reported Hydrocodone-Apap 7.5-325 (Hydrocodone Bit/Acetaminophen) 1 Each Tablet 1 Tab PO TID 04/04/17 Reported Omeprazole 40 Mg Capsule. 1 Cap PO DAILY 05/02/15 Rx Duloxetine Hcl 60 Mg Capsule.dr 60 Mg PO DAILY 04/29/15 Reported Symbicort 160-4.5 Mcg Inhaler (Budesonide/Formoterol Fumarate) 10.2 Gm Hfa.aer.ad 2 Puff IH BID 08/02/14 Reported Albuterol Sulfate Neb Soln (Albuterol Sulfate) 2.5 Mg/3 Ml Vial.neb 2.5 Mg IH Q4HRS 08/10/13 Reported Albuterol Sulfate Hfa Inhaler (Albuterol Sulfate) 8.5 Gm Hfa.aer.ad 8.5 Gm IH PRN Q2HR 08/10/13 Reported Cyclobenzaprine Hcl 10 Mg Tablet 10 Mg PO TID 08/10/13 Reported Impression . IMPRESSION: 1. Acute hypercapnic hypoxemic respiratory failure. 2. Acute exacerbation of chronic obstructive pulmonary disease. 3. Tobacco dependence. 4. Type 2 diabetes. 5. Gastroesophageal reflux. 6. Other comorbidities as listed above. Plan . transfer to floor spirometry pending 6 min walk prior to dc prn bipap d/c smoking ROBINA MOREL MD Jul 29, 2018 09:34
[2018-07-29] MEDS: cefTRIAXone IV Push 1 GM VIAL. IVP SCH (09:59)
--- NOTE | 2018-07-29 10:33 | NUR ---
SS following for discharge planning. SS reviewed pt chart. Pt is from home with spouse and is currently requiring oxygen. No discharge needs noted at this time. SS will continue to follow for pending discharge needs.
[2018-07-29 11:00] VITALS: BP 112/73
--- NOTE | 2018-07-29 14:46 | RESP ---
DATE OF SERVICE: 07/29/2018 ATTENDING PHYSICIAN: Dr. Valdez Fernandez. CONSULTING PHYSICIAN: Robina Morel MD. The patient underwent spirometry, pre and post-bronchodilator. The FEV1 to FVC ratio was 58%, FEV1 was 1.37 liters or 46% of predicted, FVC was 2.36 or 62% of predicted. There was a 12% bronchodilator response. IMPRESSION: 1. Moderate obstructive lung disease. 2. Minimal bronchodilator response. ROBINA MOREL MD DR: SANDY/aileen JOB#: [id number] / [id number]
[2018-07-29 15:00] VITALS: BP 116/65
[2018-07-29] MEDS ORDERED: POTASSIUM CHLORIDE 20 MEQ TABLET.ER. PO ONE (15:00)
[2018-07-29 18:32] VITALS: BP 113/70
[2018-07-29] MEDS: ATORVASTATIN CALCIUM 10 MG TABLET. PO SCH (20:46)
[2018-07-29 23:00] VITALS: BP 107/55
[2018-07-30] MEDS: ALBUTEROL SULFATE 2.5 MG/3 ML NEBU. NEB SCH ×6 (02:15→23:42)
[2018-07-30 03:00] VITALS: BP 103/64
[2018-07-30 05:43] LABS: CALCIUM 8.8 mg/dL (8.5-10.1); CREATININE 0.9 mg/dL (0.6-1.0); GFR 65.2; POTASSIUM 3.6 mmol/L (3.5-5.1)
[2018-07-30] MEDS: BUDESONIDE 0.5 MG/2 ML NEBU. NEB SCH ×2 (06:52→20:07)
[2018-07-30 07:20] VITALS: BP 103/65
[2018-07-30] MEDS: INSULIN LISPRO 300 UNITS/3 ML INSULN.PEN. SQ SCH ×3 (08:00→17:27)
[2018-07-30] MEDS: PANTOPRAZOLE 40 MG TABLET.DR. PO SCH (08:09)
[2018-07-30] MEDS: LACTOBACILLUS RHAMNOSUS GG 1 CAPSULE. PO SCH ×2 (08:10→20:41)
[2018-07-30] MEDS: AZITHROMYCIN 250 MG TABLET. PO SCH (08:10)
[2018-07-30] MEDS: predniSONE 10 MG TABLET PO SCH (08:10)
[2018-07-30] MEDS: metFORMIN 500 MG TABLET PO SCH ×2 (08:10→17:24)
[2018-07-30] MEDS: HYDROcodone/APAP 7.5/325MG 1 TAB TABLET PO PRN ×2 (08:10→20:42)
[2018-07-30] MEDS: DULoxetine HCL 30 MG CAPSULE.DR PO SCH (08:10)
--- NOTE | 2018-07-30 08:20 | PDOC ---
PULMONARY PROGRESS NOTES Subjective sob better, has cough, has post nasal drip, has back pain Vitals Vital Signs Date Time Temp Pulse Resp B/P (MAP) Pulse Ox O2 Delivery O2 Flow Rate FiO2 07/30/18 08:10 93 Nasal Cannula 2.0 07/30/18 07:20 98.6 102 16 103/65 (78) 98.6 ROS: No Nausea, No Chest Pain, No Abdominal Pain, No Increase Cough General: Alert HEENT: Other (nc at perrl) Lungs: Wheezing Cardiovascular: S1, S2 Abdomen: Soft Neuro Exam: Alert Extremities: No Edema Skin: Warm Labs Laboratory Tests Test 07/28/18 08:30 07/28/18 12:38 07/28/18 17:37 07/29/18 08:09 Glucose (Fingerstick) 133 mg/dL (70-99) 112 mg/dL (70-99) 186 mg/dL (70-99) 153 mg/dL (70-99) Test 07/29/18 08:25 07/29/18 12:04 07/29/18 17:23 07/29/18 19:04 White Blood Count 20.0 x10^3/uL (4.0-11.0) Red Blood Count 4.78 x10^6/uL (3.50-5.40) Hemoglobin 14.0 g/dL (12.0-15.5) Hematocrit 43.4 % (36.0-47.0) Mean Corpuscular Volume 91 fL (79-100) Mean Corpuscular Hemoglobin 29 pg (25-35) Mean Corpuscular Hemoglobin Concent 32 g/dL (31-37) Red Cell Distribution Width 13.7 % (11.5-14.5) Platelet Count 407 x10^3/uL (140-400) Neutrophils (%) (Auto) 63 % (31-73) Lymphocytes (%) (Auto) 31 % (24-48) Monocytes (%) (Auto) 3 % (0-9) Eosinophils (%) (Auto) 2 % (0-3) Basophils (%) (Auto) 1 % (0-3) Neutrophils # (Auto) 12.6 x10^3uL (1.8-7.7) Lymphocytes # (Auto) 6.2 x10^3/uL (1.0-4.8) Monocytes # (Auto) 0.7 x10^3/uL (0.0-1.1) Eosinophils # (Auto) 0.4 x10^3/uL (0.0-0.7) Basophils # (Auto) 0.2 x10^3/uL (0.0-0.2) Sodium Level 139 mmol/L (136-145) Potassium Level 3.3 mmol/L (3.5-5.1) Chloride Level 102 mmol/L (98-107) Carbon Dioxide Level 33 mmol/L (21-32) Anion Gap 4 (6-14) Blood Urea Nitrogen 13 mg/dL (7-20) Creatinine 0.9 mg/dL (0.6-1.0) Estimated GFR (Cockcroft-Gault) 65.2 Glucose Level 139 mg/dL (70-99) Calcium Level 8.7 mg/dL (8.5-10.1) Glucose (Fingerstick) 163 mg/dL (70-99) 146 mg/dL (70-99) 135 mg/dL (70-99) Test 07/30/18 04:30 07/30/18 07:58 Sodium Level 142 mmol/L (136-145) Potassium Level 3.6 mmol/L (3.5-5.1) Chloride Level 103 mmol/L (98-107) Carbon Dioxide Level 33 mmol/L (21-32) Anion Gap 6 (6-14) Blood Urea Nitrogen 15 mg/dL (7-20) Creatinine 0.9 mg/dL (0.6-1.0) Estimated GFR (Cockcroft-Gault) 65.2 Glucose Level 116 mg/dL (70-99) Calcium Level 8.8 mg/dL (8.5-10.1) Glucose (Fingerstick) 142 mg/dL (70-99) Laboratory Tests Test 07/29/18 08:25 07/29/18 12:04 07/29/18 17:23 07/29/18 19:04 White Blood Count 20.0 x10^3/uL (4.0-11.0) Red Blood Count 4.78 x10^6/uL (3.50-5.40) Hemoglobin 14.0 g/dL (12.0-15.5) Hematocrit 43.4 % (36.0-47.0) Mean Corpuscular Volume 91 fL (79-100) Mean Corpuscular Hemoglobin 29 pg (25-35) Mean Corpuscular Hemoglobin Concent 32 g/dL (31-37) Red Cell Distribution Width 13.7 % (11.5-14.5) Platelet Count 407 x10^3/uL (140-400) Neutrophils (%) (Auto) 63 % (31-73) Lymphocytes (%) (Auto) 31 % (24-48) Monocytes (%) (Auto) 3 % (0-9) Eosinophils (%) (Auto) 2 % (0-3) Basophils (%) (Auto) 1 % (0-3) Neutrophils # (Auto) 12.6 x10^3uL (1.8-7.7) Lymphocytes # (Auto) 6.2 x10^3/uL (1.0-4.8) Monocytes # (Auto) 0.7 x10^3/uL (0.0-1.1) Eosinophils # (Auto) 0.4 x10^3/uL (0.0-0.7) Basophils # (Auto) 0.2 x10^3/uL (0.0-0.2) Sodium Level 139 mmol/L (136-145) Potassium Level 3.3 mmol/L (3.5-5.1) Chloride Level 102 mmol/L (98-107) Carbon Dioxide Level 33 mmol/L (21-32) Anion Gap 4 (6-14) Blood Urea Nitrogen 13 mg/dL (7-20) Creatinine 0.9 mg/dL (0.6-1.0) Estimated GFR (Cockcroft-Gault) 65.2 Glucose Level 139 mg/dL (70-99) Calcium Level 8.7 mg/dL (8.5-10.1) Glucose (Fingerstick) 163 mg/dL (70-99) 146 mg/dL (70-99) 135 mg/dL (70-99) Test 07/30/18 04:30 07/30/18 07:58 Sodium Level 142 mmol/L (136-145) Potassium Level 3.6 mmol/L (3.5-5.1) Chloride Level 103 mmol/L (98-107) Carbon Dioxide Level 33 mmol/L (21-32) Anion Gap 6 (6-14) Blood Urea Nitrogen 15 mg/dL (7-20) Creatinine 0.9 mg/dL (0.6-1.0) Estimated GFR (Cockcroft-Gault) 65.2 Glucose Level 116 mg/dL (70-99) Calcium Level 8.8 mg/dL (8.5-10.1) Glucose (Fingerstick) 142 mg/dL (70-99) Medications Active Scripts Medications Dose Route/Sig Max Daily Dose Days Date Category Lipitor (Atorvastatin Calcium) 10 Mg Tablet 1 Tab PO DAILY 07/28/18 Reported Metformin Hcl 500 Mg Tablet 500 Mg PO BIDWMEALS 04/04/17 Reported Hydrocodone-Apap 7.5-325 (Hydrocodone Bit/Acetaminophen) 1 Each Tablet 1 Tab PO TID 04/04/17 Reported Omeprazole 40 Mg Capsule. 1 Cap PO DAILY 05/02/15 Rx Duloxetine Hcl 60 Mg Capsule.dr 60 Mg PO DAILY 04/29/15 Reported Symbicort 160-4.5 Mcg Inhaler (Budesonide/Formoterol Fumarate) 10.2 Gm Hfa.aer.ad 2 Puff IH BID 08/02/14 Reported Albuterol Sulfate Neb Soln (Albuterol Sulfate) 2.5 Mg/3 Ml Vial.neb 2.5 Mg IH Q4HRS 08/10/13 Reported Albuterol Sulfate Hfa Inhaler (Albuterol Sulfate) 8.5 Gm Hfa.aer.ad 8.5 Gm IH PRN Q2HR 08/10/13 Reported Cyclobenzaprine Hcl 10 Mg Tablet 10 Mg PO TID 08/10/13 Reported Impression . IMPRESSION: 1. Acute hypercapnic hypoxemic respiratory failure. 2. Acute exacerbation of chronic obstructive pulmonary disease. 3. Tobacco dependence. 4. Type 2 diabetes. 5. Gastroesophageal reflux. Plan . 02 titration add flonase cont prednisone taper by 10 mg q 3d ICS, BD spirometry reviewed 6 min walk prior to dc prn bipap quit smoking for ever discussed w pt JHOAN CERDA MD Jul 30, 2018 08:20
[2018-07-30] MEDS: CYCLOBENZAPRINE 10 MG TABLET. PO PRN ×2 (08:29→20:42)
[2018-07-30] MEDS: cefTRIAXone IV Push 1 GM VIAL. IVP SCH (09:21)
[2018-07-30] MEDS: FLUTICASONE 50MCG/NASAL SPRAY 16GM BOTTLE. NS SCH (09:21)
[2018-07-30 11:03] VITALS: BP 103/56
[2018-07-30 15:00] VITALS: BP 106/70
[2018-07-30 18:37] VITALS: BP 97/53
[2018-07-30] MEDS: ATORVASTATIN CALCIUM 10 MG TABLET. PO SCH (20:41)
[2018-07-30 22:53] VITALS: BP 114/70
--- NOTE | 2018-07-31 03:14 | PN ---
DATE: 07/30/2018 LOCATION: Room 258. SUBJECTIVE: The patient is awake, alert, still is having difficulties breathing, particularly with any sort of exertion. She remains on O2. OBJECTIVE: VITAL SIGNS: Stable. She is afebrile. O2 sats are good on 2 liters per nasal cannula. CHEST: Reveals diffuse inspiratory and expiratory wheezing. HEART: Regular rate and rhythm. ABDOMEN: Benign. EXTREMITIES: Without cyanosis, clubbing, edema. NEUROLOGIC: She is intact. Pulmonary is following along. LABORATORY DATA: Chest x-ray on admission shows no acute infiltrates. IMPRESSION: 1. Exacerbation of chronic obstructive pulmonary disease with slow improvement. 2. Acute hypercapnic-hypoxic respiratory failure. 3. Type 2 diabetes with fair blood sugars despite steroids. 4. Gastroesophageal reflux. 5. Leukocytosis, but at least partially related to steroids. PLAN: Continue present therapy and await gradual clearing. DINO SÁNCHEZ MD DR: MIRI/aileen JOB#: [id number] / [id number]
[2018-07-31 03:56] VITALS: BP 127/78
[2018-07-31] MEDS: ALBUTEROL SULFATE 2.5 MG/3 ML NEBU. NEB SCH ×6 (04:19→23:12)
[2018-07-31 07:57] VITALS: BP 115/69
[2018-07-31] MEDS: INSULIN LISPRO 300 UNITS/3 ML INSULN.PEN. SQ SCH ×3 (08:00→17:21)
[2018-07-31] MEDS: metFORMIN 500 MG TABLET PO SCH ×2 (08:16→17:19)
[2018-07-31] MEDS: PANTOPRAZOLE 40 MG TABLET.DR. PO SCH (08:16)
[2018-07-31] MEDS: predniSONE 10 MG TABLET PO SCH (08:16)
[2018-07-31] MEDS: CYCLOBENZAPRINE 10 MG TABLET. PO PRN ×2 (08:16→20:26)
[2018-07-31] MEDS: HYDROcodone/APAP 7.5/325MG 1 TAB TABLET PO PRN ×2 (08:16→20:26)
[2018-07-31] MEDS: DULoxetine HCL 30 MG CAPSULE.DR PO SCH (08:16)
[2018-07-31] MEDS: LACTOBACILLUS RHAMNOSUS GG 1 CAPSULE. PO SCH ×2 (08:16→20:22)
[2018-07-31] MEDS: AZITHROMYCIN 250 MG TABLET. PO SCH (08:16)
[2018-07-31] MEDS: FLUTICASONE 50MCG/NASAL SPRAY 16GM BOTTLE. NS SCH (08:17)
[2018-07-31] MEDS: BUDESONIDE 0.5 MG/2 ML NEBU. NEB SCH ×2 (08:26→19:33)
--- NOTE | 2018-07-31 09:15 | PDOC ---
PULMONARY PROGRESS NOTES Subjective sob better, has cough, has back pain Vitals Vital Signs Date Time Temp Pulse Resp B/P (MAP) Pulse Ox O2 Delivery O2 Flow Rate FiO2 07/31/18 08:30 95 Room Air 07/31/18 08:16 2.0 07/31/18 07:57 98.2 97 18 115/69 (84) 98.2 ROS: No Nausea, No Chest Pain, No Abdominal Pain, No Increase Cough General: Alert HEENT: Other (nc at perrl) Lungs: Other (a few end exp wheezing) Cardiovascular: S1, S2 Abdomen: Soft, Non-tender Neuro Exam: Alert Extremities: No Edema Skin: Warm Labs Laboratory Tests Test 07/29/18 12:04 07/29/18 17:23 07/29/18 19:04 07/30/18 04:30 Glucose (Fingerstick) 163 mg/dL (70-99) 146 mg/dL (70-99) 135 mg/dL (70-99) Sodium Level 142 mmol/L (136-145) Potassium Level 3.6 mmol/L (3.5-5.1) Chloride Level 103 mmol/L (98-107) Carbon Dioxide Level 33 mmol/L (21-32) Anion Gap 6 (6-14) Blood Urea Nitrogen 15 mg/dL (7-20) Creatinine 0.9 mg/dL (0.6-1.0) Estimated GFR (Cockcroft-Gault) 65.2 Glucose Level 116 mg/dL (70-99) Calcium Level 8.8 mg/dL (8.5-10.1) Test 07/30/18 07:58 07/30/18 11:32 07/30/18 17:24 07/30/18 20:35 Glucose (Fingerstick) 142 mg/dL (70-99) 141 mg/dL (70-99) 224 mg/dL (70-99) 157 mg/dL (70-99) Test 07/31/18 08:03 Glucose (Fingerstick) 109 mg/dL (70-99) Laboratory Tests Test 07/30/18 11:32 07/30/18 17:24 07/30/18 20:35 07/31/18 08:03 Glucose (Fingerstick) 141 mg/dL (70-99) 224 mg/dL (70-99) 157 mg/dL (70-99) 109 mg/dL (70-99) Medications Active Scripts Medications Dose Route/Sig Max Daily Dose Days Date Category Lipitor (Atorvastatin Calcium) 10 Mg Tablet 1 Tab PO DAILY 07/28/18 Reported Metformin Hcl 500 Mg Tablet 500 Mg PO BIDWMEALS 04/04/17 Reported Hydrocodone-Apap 7.5-325 (Hydrocodone Bit/Acetaminophen) 1 Each Tablet 1 Tab PO TID 04/04/17 Reported Omeprazole 40 Mg Capsule. 1 Cap PO DAILY 05/02/15 Rx Duloxetine Hcl 60 Mg Capsule.dr 60 Mg PO DAILY 04/29/15 Reported Symbicort 160-4.5 Mcg Inhaler (Budesonide/Formoterol Fumarate) 10.2 Gm Hfa.aer.ad 2 Puff IH BID 08/02/14 Reported Albuterol Sulfate Neb Soln (Albuterol Sulfate) 2.5 Mg/3 Ml Vial.neb 2.5 Mg IH Q4HRS 08/10/13 Reported Albuterol Sulfate Hfa Inhaler (Albuterol Sulfate) 8.5 Gm Hfa.aer.ad 8.5 Gm IH PRN Q2HR 08/10/13 Reported Cyclobenzaprine Hcl 10 Mg Tablet 10 Mg PO TID 08/10/13 Reported Impression . IMPRESSION: 1. Acute hypercapnic hypoxemic respiratory failure. 2. Acute exacerbation of chronic obstructive pulmonary disease. 3. Tobacco dependence. 4. Type 2 diabetes. 5. Gastroesophageal reflux. 6. ?kasey Plan . 02 titration cont flonase prednisone taper by 10 mg q 3d ICS, BD spirometry reviewed 6 min walk prior to dc quit smoking for ever psg out pt lose wt discussed w pt JHOAN CERDA MD Jul 31, 2018 09:15
[2018-07-31] MEDS: cefTRIAXone IV Push 1 GM VIAL. IVP SCH (10:17)
[2018-07-31 10:39] VITALS: BP 110/55
[2018-07-31 14:28] VITALS: BP_SYST 116; BP_SYST 149; BP_DIAS 64; BP_DIAS 65
[2018-07-31 19:07] VITALS: BP 123/73
[2018-07-31] MEDS: ATORVASTATIN CALCIUM 10 MG TABLET. PO SCH (20:22)
[2018-07-31 23:00] VITALS: BP 112/69
[2018-08-01 03:25] VITALS: BP 147/80
[2018-08-01] MEDS: ALBUTEROL SULFATE 2.5 MG/3 ML NEBU. NEB SCH ×2 (03:30→08:11)
--- NOTE | 2018-08-01 04:18 | PN ---
DATE: 07/31/2018 DAILY PROGRESS NOTE LOCATION: She is in room 258. SUBJECTIVE: The patient is awake and alert, feels like she is getting closer every day to her home baseline. She has IV antibiotics ongoing. OBJECTIVE: VITAL SIGNS: Stable. She is afebrile. She remains on 2 liters per nasal cannula O2. CHEST: With better air movement today compared to yesterday, but still significant expiratory wheezing. HEART: Regular. ABDOMEN: Benign. LABORATORY AND DIAGNOSTIC DATA: Blood sugars are anywhere from 100 to 200 generally. IMPRESSION: 1. Exacerbation of chronic obstructive pulmonary disease with slow improvement. 2. Diabetes. 3. Acute hypercapnic hypoxic respiratory failure, improving. PLAN: Continue present. Await clearing. Expect discharge early week. DINO SÁNCHEZ MD DR: MIRI/aileen JOB#: [id number] / [id number]
[2018-08-01 07:43] VITALS: BP 131/82
--- NOTE | 2018-08-01 08:11 | PDOC ---
Provider Note Provider Note vss, no temp- still wheezing, no rales , dyspnea- scant sputum, cults and labs neg- cont same for now, 6 min walk re home need- maybe dc 08/02 CESARIO MACKEY MD Aug 01, 2018 08:11
[2018-08-01] MEDS: BUDESONIDE 0.5 MG/2 ML NEBU. NEB SCH ×2 (08:12→20:15)
[2018-08-01] MEDS ORDERED: ALBUTEROL SULFATE 2.5 MG/3 ML NEBU. NEB PRN (08:15)
[2018-08-01] MEDS: PANTOPRAZOLE 40 MG TABLET.DR. PO SCH (08:54)
[2018-08-01] MEDS: LACTOBACILLUS RHAMNOSUS GG 1 CAPSULE. PO SCH ×2 (08:54→20:30)
[2018-08-01] MEDS: metFORMIN 500 MG TABLET PO SCH ×2 (08:55→16:41)
[2018-08-01] MEDS: AZITHROMYCIN 250 MG TABLET. PO SCH (08:55)
[2018-08-01] MEDS: predniSONE 10 MG TABLET PO SCH (08:55)
[2018-08-01] MEDS: HYDROcodone/APAP 7.5/325MG 1 TAB TABLET PO PRN ×2 (09:00→20:31)
[2018-08-01] MEDS: FLUTICASONE 50MCG/NASAL SPRAY 16GM BOTTLE. NS SCH (09:00)
[2018-08-01] MEDS: DULoxetine HCL 30 MG CAPSULE.DR PO SCH (09:00)
[2018-08-01] MEDS: CYCLOBENZAPRINE 10 MG TABLET. PO PRN ×2 (09:00→20:31)
[2018-08-01] MEDS: cefTRIAXone IV Push 1 GM VIAL. IVP SCH (09:01)
[2018-08-01 10:45] VITALS: BP 109/65
[2018-08-01] MEDS: IPRATRPIUM/ALBUTEROL 0.5/2.5MG 3 ML NEBU. NEB SCH ×3 (12:22→20:00)
--- NOTE | 2018-08-01 12:52 | PDOC ---
PULMONARY PROGRESS NOTES Subjective sob better, has cough, has back pain Vitals Vital Signs Date Time Temp Pulse Resp B/P (MAP) Pulse Ox O2 Delivery O2 Flow Rate FiO2 08/01/18 12:22 95 Room Air 08/01/18 10:45 98.0 94 20 109/65 (80) 2.0 98.0 ROS: No Nausea, No Chest Pain, No Abdominal Pain, No Increase Cough General: Alert HEENT: Other (nc at perrl) Lungs: Other (a few end exp wheezing) Cardiovascular: S1, S2 Abdomen: Soft, Non-tender Neuro Exam: Alert Extremities: No Edema Skin: Warm Labs Laboratory Tests Test 07/30/18 17:24 07/30/18 20:35 07/31/18 08:03 07/31/18 11:54 Glucose (Fingerstick) 224 mg/dL (70-99) 157 mg/dL (70-99) 109 mg/dL (70-99) 209 mg/dL (70-99) Test 07/31/18 17:05 07/31/18 20:48 08/01/18 07:33 08/01/18 11:28 Glucose (Fingerstick) 214 mg/dL (70-99) 182 mg/dL (70-99) 108 mg/dL (70-99) 145 mg/dL (70-99) Laboratory Tests Test 07/31/18 17:05 07/31/18 20:48 08/01/18 07:33 08/01/18 11:28 Glucose (Fingerstick) 214 mg/dL (70-99) 182 mg/dL (70-99) 108 mg/dL (70-99) 145 mg/dL (70-99) Medications Active Scripts Medications Dose Route/Sig Max Daily Dose Days Date Category Lipitor (Atorvastatin Calcium) 10 Mg Tablet 1 Tab PO DAILY 07/28/18 Reported Metformin Hcl 500 Mg Tablet 500 Mg PO BIDWMEALS 04/04/17 Reported Hydrocodone-Apap 7.5-325 (Hydrocodone Bit/Acetaminophen) 1 Each Tablet 1 Tab PO TID 04/04/17 Reported Omeprazole 40 Mg Capsule.dr 1 Cap PO DAILY 05/02/15 Rx Duloxetine Hcl 60 Mg Capsule.dr 60 Mg PO DAILY 04/29/15 Reported Symbicort 160-4.5 Mcg Inhaler (Budesonide/Formoterol Fumarate) 10.2 Gm Hfa.aer.ad 2 Puff IH BID 08/02/14 Reported Albuterol Sulfate Neb Soln (Albuterol Sulfate) 2.5 Mg/3 Ml Vial.neb 2.5 Mg IH Q4HRS 08/10/13 Reported Albuterol Sulfate Hfa Inhaler (Albuterol Sulfate) 8.5 Gm Hfa.aer.ad 8.5 Gm IH PRN Q2HR 08/10/13 Reported Cyclobenzaprine Hcl 10 Mg Tablet 10 Mg PO TID 08/10/13 Reported Impression . IMPRESSION: 1. Acute hypercapnic hypoxemic respiratory failure. 2. Acute exacerbation of chronic obstructive pulmonary disease. 3. Tobacco dependence. 4. Type 2 diabetes. 5. Gastroesophageal reflux. 6. ?kasey Plan . 02 titration cont flonase prednisone taper ICS, BD spirometry reviewed 6 min walk prior to dc quit smoking for ever psg out pt lose wt discussed w pt SAVANNAH MADDEN MD Aug 01, 2018 12:52
--- NOTE | 2018-08-01 13:47 | NUR ---
SS following up with discharge planning. Pt discharge disposition is home with spouse. Pt currently requiring oxygen. SS will continue to follow for discharge planning.
[2018-08-01 14:50] VITALS: BP 117/67
--- NOTE | 2018-08-01 16:50 | NUR ---
Assumed care of patient. Patient oriented to room. Will continue to monitor and care for according to POC.
[2018-08-01 19:00] VITALS: BP 95/74
[2018-08-01] MEDS: ATORVASTATIN CALCIUM 10 MG TABLET. PO SCH (20:31)
[2018-08-01 22:52] VITALS: BP 116/73
[2018-08-02 02:58] VITALS: BP 101/55
[2018-08-02] MEDS: CYCLOBENZAPRINE 10 MG TABLET. PO PRN (06:02)
[2018-08-02] MEDS: PANTOPRAZOLE 40 MG TABLET.DR. PO SCH (06:02)
[2018-08-02] MEDS: HYDROcodone/APAP 7.5/325MG 1 TAB TABLET PO PRN (06:02)
[2018-08-02 07:00] VITALS: BP 140/68
[2018-08-02] MEDS: BUDESONIDE 0.5 MG/2 ML NEBU. NEB SCH (08:00)
--- NOTE | 2018-08-02 08:24 | DISCH ---
DISCHARGE INSTRUCTIONS Condition on Discharge Condition on Discharge: Stable Activity After Discharge Activity Instructions for Disc: No restrictions, Activity as tolerated Lifting Instructions after Dis: No heavy lifting Exercise Instruction after Dis: Progress as tolerated Driving Instructions after Dis: Do not drive today Weight Bearing Status after Di: Full weight bearing Diet after Discharge Diet after Discharge: Regular Diet Texture: Regular Liquid Texture: Thin Liquid Swallowing Supervision: None needed Checks after Discharge Checks after discharge: Check blood press - daily, Check blood sugar, ac/hs, Check your Temp as needed Follow-Up Follow up with: as scheduled Treatment/Equipment after DC Adaptive Equipment Issued: None CESARIO MACKEY MD Aug 02, 2018 08:24
[2018-08-02] MEDS: metFORMIN 500 MG TABLET PO SCH (08:26)
[2018-08-02] MEDS: FLUTICASONE 50MCG/NASAL SPRAY 16GM BOTTLE. NS SCH (08:26)
[2018-08-02] MEDS: DULoxetine HCL 30 MG CAPSULE.DR PO SCH (08:26)
[2018-08-02] MEDS: LACTOBACILLUS RHAMNOSUS GG 1 CAPSULE. PO SCH (08:26)
[2018-08-02] MEDS: predniSONE 10 MG TABLET PO SCH (08:27)
[2018-08-02] MEDS: IPRATRPIUM/ALBUTEROL 0.5/2.5MG 3 ML NEBU. NEB SCH (08:33)
--- NOTE | 2018-08-02 08:41 | PDOC ---
Provider Note Provider Note [id number] CESARIO MACKEY MD Aug 02, 2018 08:41
--- NOTE | 2018-08-02 10:51 | DS ---
DATE OF DISCHARGE: 08/02/2018 HOSPITAL SUMMARY: A 53-year-old white female smoker with COPD, came in with exacerbation. She had leukocytosis with a white count of 18,000, but no left shift and chemistry profile was unremarkable with normal electrolytes and blood sugars. She was negative for flu A and B and the urinalysis was clear and chest x-ray was clear as well. She was treated with IV Rocephin and oral Zithromax and IV Solu-Medrol and then switched to oral medicines and is doing better. She has remained afebrile throughout the hospital stay and her 6-minute walk has been completed, but it is not available to be read by me at this point. Oxygen saturations are 95% on room air. She is comfortable to be followed as an outpatient. FINAL DIAGNOSIS: Acute exacerbation of chronic obstructive pulmonary disease. OPERATIONS, PROCEDURES, COMPLICATIONS: None. CONSULTATIONS: Dr. Quintero's group. DISPOSITION: Prednisone taper over the next 5 days. She will continue Symbicort, Spiriva and rest of home meds remain the same. Office follow up in 2 weeks. Complete tobacco avoidance encouraged. PROGNOSIS: Guarded because of chronic tobaccoism and severity of COPD. CESARIO MACKEY MD DR: NOVA/aileen JOB#: [id number] / [id number]
--- NOTE | 2018-08-02 15:45 | RESP ---
DATE OF SERVICE: 08/01/2018 The patient's mean oxygen saturations remained around 92%, the lowest of 72%. 10% of time, oxygen saturation remained less than 90%, which is 50 minutes and 16 seconds. IMPRESSION: Mild nocturnal hypoxia. RECOMMENDATIONS: If clinical suspicion for sleep apnea is high, then consider doing full polysomnogram. SAVANNAH MADDEN MD DR: JE/aileen JOB#: [id number] / [id number]
== END 2018-08-02 11:14 | disposition home or self-care (01) | DRG 189 ==
LOC: ER 21:50 → 1 WEST ICU 23:25 → 2 SOUTH 07-29 18:30 → 5 NORTH 08-01 15:59
PROVIDERS: ADMIT Family Medicine; ATTEND Family Medicine
PROC: 5A09357 Assistance with Respiratory Ventilation, Less than 24 Consecutive Hours, Continuous Positive Airway Pressure (ICD-10-PCS; principal; 2018-07-27)
DX: J96.01 Acute respiratory failure with hypoxia (principal); J44.1 Chronic obstructive pulmonary disease with (acute) exacerbation; J96.02 Acute respiratory failure with hypercapnia; K21.9 Gastro-esophageal reflux disease without esophagitis; G89.29 Other chronic pain; F17.200 Nicotine dependence, unspecified, uncomplicated; E11.9 Type 2 diabetes mellitus without complications; F41.9 Anxiety disorder, unspecified; F31.9 Bipolar disorder, unspecified; T38.0X5A Adverse effect of glucocorticoids and synthetic analogues, initial encounter; D72.829 Elevated white blood cell count, unspecified; F12.90 Cannabis use, unspecified, uncomplicated; M19.90 Unspecified osteoarthritis, unspecified site; Z98.51 Tubal ligation status; Z86.010 Personal history of colon polyps; Z90.49 Acquired absence of other specified parts of digestive tract
CPT/HCPCS: 36415; 36600; 51701; 71045; 80048; 80053; 81001; 82553; 82805; 82962; 83605; 83880; 84484; 85007; 85025; 87040; 87641; 87804; 93005; 94060; 94618; 94640; 94660; 94760; 94799; J0456; J0696; J1815; J7050; J7512; J7613; J7620; J7626; Q0144; 99291-25; J7030

== ENCOUNTER 2018-10-01 12:55 | Emergency (ER) | payer MEDICARE ==
[~2018-10-01 12:55] MED LIST changes: +ATOR10TA PO
== END 2018-10-01 13:34 | disposition left against medical advice (07) ==
LOC: ER 12:55
DX: J44.9 Chronic obstructive pulmonary disease, unspecified (principal); Z53.21 Procedure and treatment not carried out due to patient leaving prior to being seen by health care provider

== ENCOUNTER 2020-10-10 02:35 | Observation (INO) | payer MEDICARE ==
[~2020-10-10] VITALS: Ht 170.2 cm; Wt 100.0 kg
[~2020-10-10 02:35] MED LIST changes: -DULO60CA44 PO; +DULO60CA45 PO; -OMEP20CA10 PO; +OMEP20CA16 PO; +OMEP40CA45 PO; -OMEP40CA5 PO
--- NOTE | 2020-10-10 03:21 | PHYS DOC ---
Past Medical History Past Medical History: Asthma, COPD, GERD, Pneumonia, Other Additional Past Medical Histor: chronic pain Past Surgical History: Tubal ligation Additional Past Surgical Histo: eye, teeth extraction Smoking Status: Current Every Day Smoker Alcohol Use: Rarely Drug Use: Marijuana General Adult EDM: Chief Complaint: SHORTNESS OF BREATH HPI: HPI: Patient is a 55 year old female with a past medical history of COPD presents with a chief complaint of shortness of breath. She states she has been short of breath for 1 week. Shortness of breath is progressively become worse since onset. Patient states she has associated cough with sputum production. . Patient has some chest discomfort with her cough. She denies any fevers or chills. Patient has not received her Covid vaccine. Review of Systems: Review of Systems: Review of systems: Constitutional symptoms- No fever, no chills. Eyes- No Discharge, No Visual Loss Respiratory symptoms- Positive shortness of breath, Positive wheezing, Positive Dyspnea on Exertion Cardiovascular Systems; Positive chest pain, No Palpitations, No syncope Gastrointestinal symptoms: NO abdominal pain, no nausea, no vomiting or diarrhea. Genitourinary symptoms: No dysuria. Musculoskeletal symptoms: No back pain No extremity pain. NEUROLOGICAL Symptoms: No headache, no generalized weakness; No focal Weakness Heart Score: C/O Chest Pain: N/A Risk Factors: Risk Factors: DM, Current or recent (<one month) smoker, HTN, HLP, family history of CAD, obesity. Risk Scores: Score 0 - 3: 2.5% MACE over next 6 weeks - Discharge Home Score 4 - 6: 20.3% MACE over next 6 weeks - Admit for Clinical Observation Score 7 - 10: 72.7% MACE over next 6 weeks - Early Invasive Strategies Allergies: Allergies: Allergies Coded Allergies Type Severity Reaction Last Updated Verified Sulfa (Sulfonamide Antibiotics) Allergy Intermediate 05/02/15 Yes coconut oil Allergy Intermediate COCONUT 08/10/13 Yes ibuprofen Allergy Intermediate 05/02/15 Yes tramadol Allergy Intermediate 04/25/20 Yes adhesive Adverse Reaction Mild Rash 08/10/13 Yes Physical Exam: PE: General: alert, no acute distress. Skin: warm, dry and intact. Head:: Normocephalic, atraumatic. Neck: Trachea midline. Eyes: EOMI, Normal conjunctiva, No drainage CARDIOVASCULAR: Tachycardia RESPIRATORY: Tachypneic, wheezing Back: Full range of motion. MUSCULOSKELETAL: Full range of motion of bilateral upper and lower extremities. GASTROINTESTINAL: Abdomen soft without rebound or guarding. NEUROLOGICAL: Alert and noted to person, place and time. No neurological deficits observed Psychiatric: Cooperative. Normal judgment Current Patient Data: Vital Signs: Vital Signs Date Time Temp Pulse Resp B/P (MAP) Pulse Ox O2 Delivery O2 Flow Rate FiO2 10/10/20 02:43 98.5 108 24 124/81 (95) 94 Room Air 98.5 EKG: EKG: [] EKG performed at 0245 hours heart rate 111 Radiology/Procedures: Radiology/Procedures: [] Impression: Chest x-ray wet read no focal infiltrate no bony abnormalities no acute process Course & Med Decision Making: Course & Med Decision Making Pertinent Labs and Imaging studies reviewed. (See chart for details) [] Patient was evaluated for chief complaint. Work-up consisted of laboratory analysis and radiologic imaging. Results reviewed and discussed with patient. Treatment included IV soluMedrol DuoNeb and IV fluids. Covid pending. Dragon Disclaimer: Zo Disclaimer: This electronic medical record was generated, in whole or in part, using a voice recognition dictation system. Departure Departure Impression: Primary Impression: COPD exacerbation Additional Impression: Person under investigation for COVID-19 Disposition: ADMITTED INPATIENT Admitting Physician: Valdez Fernandez Trusty, Whitney Condition: STABLE Referrals: VALDEZ FERNANDEZ MD (PCP) NATY ALSTON DO October 10, 2020 03:21
[2020-10-10 03:33] LABS: BASO # 0.1 x10^3/uL (0.0-0.2); BASO % 1 % (0-3); EOS # 0.1 x10^3/uL (0.0-0.7); EOS % 1 % (0-3); HEMATOCRIT 45.2 % (36.0-47.0); HEMOGLOBIN 14.9 g/dL (12.0-15.5); LYMPH # 2.1 x10^3/uL (1.0-4.8); LYMPH % 15 % (24-48); MEAN CORPUSCULAR HEMOGLOBIN 29 pg (25-35); MEAN CORPUSCULAR HGB CONC 33 g/dL (31-37); MEAN CORPUSCULAR VOLUME 88 fL (79-100); MONO # 0.3 x10^3/uL (0.0-1.1); MONO % 2 % (0-9); NEUT # 11.1 x10^3/uL (1.8-7.7); NEUT % 81 % (31-73); PLATELET COUNT 478 x10^3/uL (140-400); RED BLOOD COUNT 5.13 x10^6/uL (3.50-5.40); RED CELL DISTRIBUTION WIDTH 14.2 % (11.5-14.5); WHITE BLOOD COUNT 13.6 x10^3/uL (4.0-11.0)
[2020-10-10 03:52] LABS: CALCIUM 8.3 mg/dL (8.5-10.1); CREATININE 1.2 mg/dL (0.6-1.0); GFR 46.5; POTASSIUM 3.2 mmol/L (3.5-5.1)
[2020-10-10 03:58] LABS: ALBUMIN 3.6 g/dL (3.4-5.0); ALBUMIN/GLOBULIN RATIO 0.9 (1.0-1.7); TOTAL BILIRUBIN 0.8 mg/dL (0.2-1.0); TOTAL PROTEIN 7.6 g/dL (6.4-8.2)
[2020-10-10] MEDS ORDERED: methylPREDNISolone SOD SUCC PF 125 MG/2 ML VIAL. IV ONE (04:00)
[2020-10-10] MEDS ORDERED: IPRATRPIUM/ALBUTEROL 0.5/2.5MG 3 ML NEBU. NEB ONE (04:00)
[2020-10-10] MEDS ORDERED: TRIA15OI TP (06:07)
[2020-10-10] MEDS ORDERED: FLUT9.9S NS (06:07)
[2020-10-10] MEDS ORDERED: METH-561 PO (06:07)
[2020-10-10] MEDS ORDERED: FEXO180T16 PO (06:07)
[2020-10-10] MEDS ORDERED: ALPR0.5T6 PO (06:07)
--- NOTE | 2020-10-10 06:46 | RAD ---
INDICATION: Reason: sob / Spl. Instructions: / History: COMPARISON: April 19, 2020 FINDINGS: Single view of chest obtained. Degenerative changes the spine. Cardiac silhouette is not enlarged. Appearance the lungs is similar t o prior without a new region of consolidation or edema IMPRESSION: * No focal airspace consolidation or edema. Electronically signed by: Rodolfo Fernandez MD (10/10/2020 6:43 AM) [id number]
[2020-10-10 07:00] VITALS: BP 108/69
[2020-10-10] MEDS ORDERED: ALBUTEROL SULFATE 2.5 MG/3 ML NEBU. INH PRN (07:45)
[2020-10-10] MEDS: IPRATRPIUM/ALBUTEROL 0.5/2.5MG 3 ML NEBU. NEB SCH ×4 (07:54→20:03)
--- NOTE | 2020-10-10 07:54 | PDOC1 ---
H & P. DATE OF SERVICE: DATE: 10/10/20 TIME: 07:48 HPI: Ms. Kern is a 55-year-old female with a past medical history of COPD, nicotine dependence, GERD, anxiety, hyperlipidemia, type 2 diabetes, who presented to the emergency room for increasing shortness of breath and wheezing over the last couple weeks. She denies lack of sense of taste/smell, but admits some diarrhea yesterday. No known exposures. Her labs are remarkable for mild leukocytosis wit h left shift, mild hypokalemia, mildly elevated creatinine at 1.2 with a GFR of 47, with baseline creatinine of 0.8 and normal GFR. Chest x-ray was generally unremarkable for acute findings. She was given Solu-Medrol and duo nebs in the emergency room and admitted for further evaluation and management. Of note she has not had the Covid vaccinations and her Covid test is pending. ROS: Constitutional: Denies fever, fatigue, chills HEENT: Denies sore throat, vision changes Cardio: Denies chest pain, dyspnea with exertion, syncope, palpitations, edema Pulmonary: Admits shortness of breath, cough, wheezing GI: Denies nausea, vomiting, diarrhea, constipation : Denies dysuria, frequency, urgency, incontinence Skin: Denies new lesions Neuro: Denies weakness, paresthesias PMH: As above FAMILY HX: Mother had heart disease, diabetes. Father had cancer of uncertain primary origin. SOCIAL HX: Long-term smoker of up to 1-1/2 packs/day for at least the last 40 years. No significant alcohol or drug use. SURGICAL HX: Status post tubal ligation, cholecystectomy. MEDS: Reviewed and reconciled ALLERGIES: Reviewed PE: Alert, oriented, no acute distress EOMI, sclera non-icteric Neck supple RRR, no murmur Decreased auscultation bilaterally Soft, NT, ND, normal bowel sounds. No edema, cyanosis. Normal capillary refill. Calm, cooperative, mood/affect within normal limits ASSESSMENT & PLAN: COPD exacerbation, Covid PUI SARIKA Type 2 diabetes, well controlled, holding Metformin due to SARIKA Nicotine dependence GERD Anxiety Hyperlipidemia HypoK+, replaced Covid test pending Duo nebs, steroids, hold abx at this time Supplemental oxygen as needed Justifications for Admission Other Justification HERNESTO ALVARADO MD October 10, 2020 07:54
[2020-10-10] MEDS ORDERED: metFORMIN 500 MG TABLET PO SCH (08:00)
[2020-10-10] MEDS ORDERED: POTASSIUM CHLORIDE 20 MEQ TABLET.ER. PO ONE (09:15)
[2020-10-10] MEDS: PANTOPRAZOLE 40 MG TABLET.DR. PO SCH (09:39)
[2020-10-10] MEDS: ALPRAZolam 0.5 MG TABLET PO SCH ×3 (09:39→20:50)
[2020-10-10] MEDS: DULoxetine HCL 30 MG CAPSULE.DR PO SCH (09:39)
[2020-10-10] MEDS: ATORVASTATIN CALCIUM 10 MG TABLET. PO SCH (09:39)
[2020-10-10] MEDS: METHOCARBAMOL 500 MG TABLET PO PRN ×2 (09:47→19:22)
--- NOTE | 2020-10-10 10:28 | NUR ---
SW following. Discussed with RN, pt from home, room air, ada diet. RN advised no SW needs at this time. RN anticipates possible discharge home. Pt PUI currently. SW will continue to follow.
[2020-10-10 11:00] VITALS: BP 108/63
[2020-10-10 15:00] VITALS: BP 102/73
[2020-10-10 19:00] VITALS: BP 141/81
[2020-10-10] MEDS: HYDROcodone/APAP 7.5/325MG 1 TAB TABLET PO PRN (19:23)
[2020-10-10 23:00] VITALS: BP 107/69
[2020-10-11 03:00] VITALS: BP 111/64
[2020-10-11] MEDS: HYDROcodone/APAP 7.5/325MG 1 TAB TABLET PO PRN (03:44)
[2020-10-11 04:51] LABS: BASO % 0 % (0-3); EOS # 0.1 x10^3/uL (0.0-0.7); EOS % 1 % (0-3); HEMATOCRIT 41.9 % (36.0-47.0); HEMOGLOBIN 13.9 g/dL (12.0-15.5); LYMPH # 5.6 x10^3/uL (1.0-4.8); LYMPH % 40 % (24-48); MEAN CORPUSCULAR HEMOGLOBIN 30 pg (25-35); MEAN CORPUSCULAR HGB CONC 33 g/dL (31-37); MEAN CORPUSCULAR VOLUME 89 fL (79-100); MONO % 7 % (0-9); NEUT # 7.2 x10^3/uL (1.8-7.7); NEUT % 52 % (31-73); PLATELET COUNT 448 x10^3/uL (140-400); RED CELL DISTRIBUTION WIDTH 13.6 % (11.5-14.5)
[2020-10-11 05:22] LABS: CALCIUM 8.3 mg/dL (8.5-10.1); CREATININE 1.2 mg/dL (0.6-1.0); GFR 46.5; POTASSIUM 3.5 mmol/L (3.5-5.1)
[2020-10-11 07:00] VITALS: BP 107/62
[2020-10-11] MEDS: IPRATRPIUM/ALBUTEROL 0.5/2.5MG 3 ML NEBU. NEB SCH ×3 (07:00→15:15)
[2020-10-11] MEDS ORDERED: TIOT18CA IH (08:08)
[2020-10-11] MEDS ORDERED: CETI10TA16 PO (08:08)
[2020-10-11] MEDS ORDERED: PRED-220 PO (08:08)
[2020-10-11] MEDS ORDERED: BUDE10.2 IH (08:08)
--- NOTE | 2020-10-11 08:14 | PDOC3 ---
Discharge Summary Date of Admission: October 09, 2020 Date of Discharge: October 11, 2020 Follow-Up: 3-5 days Admitting Diagnosis comment: COPD exacerbation FINAL DIAGNOSIS COPD exacerbation Brief Hospital Course Ms. Miles is a 55-year-old female with a past medical history of COPD, nicotine dependence, GERD, anxiety, hyperlipidemia, type 2 diabetes, who presented to the emergency room for increasing shortness of breath and wheezing over the last couple weeks. Her labs are remarkable for mild leukocytosis with left shift, mild hypokalemia, mildly elevated creatinine at 1.2 with a GFR of 47, with baseline creatinine of 0.8 and normal GFR. Chest x-ray was generally unremarkable for acute findings. COVID test was negative. She was treated with breathing treatments and steroids with improvement in her breathing. She never required oxygen. She has previously been on controlling inhalers at home but has been without them for some time. Spiriva and Symbicort were sent to her pharmacy and she was encouraged to be consistent with these. She was encouraged to quit smoking. She was given a long prednisone taper. She did not require antibiotics. She will need a BMP at follow up to recheck her Cr/GFR. Discharge Medications Alprazolam 0.5 Mg Tablet 0.5 Mg PO TID Flonase Allergy Relief (Fluticasone Propionate) 9.9 Ml Jachin.susp 2 Sprays NS DAILY Methocarbamol 500 Mg Tablet 500 Mg PO PRN BID PRN Lipitor (Atorvastatin Calcium) 10 Mg Tablet 20 Mg PO DAILY Metformin Hcl 500 Mg Tablet 1,000 Mg PO BIDWMEALS Hydrocodone-Apap 7.5-325 (Hydrocodone Bit/Acetaminophen) 1 Each Tablet 1 Tab PO TID PRN Duloxetine Hcl 60 Mg Capsule.dr 60 Mg PO DAILY Symbicort 160-4.5 Mcg Inhaler (Budesonide/Formoterol Fumarate) 10.2 Gm Hfa.aer.ad 2 Puff IH BID Albuterol Sulfate Neb Soln (Albuterol Sulfate) 2.5 Mg/3 Ml Vial.neb 2.5 Mg IH Q4HRS Albuterol Sulfate Hfa Inhaler (Albuterol Sulfate) 8.5 Gm Hfa.aer.ad 8.5 Gm IH PRN Q2HR Cyclobenzaprine Hcl 10 Mg Tablet 10 Mg PO BID PRN Prednisone taper 40mg x 3, 30 x 3, 20 x 2, 10 x 2 days Spiriva respimat sent to pharm per pt preference Vital Signs Vital Signs Date Time Temp Pulse Resp B/P (MAP) Pulse Ox O2 Delivery O2 Flow Rate FiO2 10/11/20 07:00 97 Room Air 10/11/20 03:00 97.7 92 16 111/64 (80) 97.7 Labs Laboratory Tests Test 10/10/20 02:50 10/10/20 03:37 10/10/20 11:52 10/10/20 17:07 White Blood Count 13.6 x10^3/uL (4.0-11.0) Red Blood Count 5.13 x10^6/uL (3.50-5.40) Hemoglobin 14.9 g/dL (12.0-15.5) Hematocrit 45.2 % (36.0-47.0) Mean Corpuscular Volume 88 fL (79-100) Mean Corpuscular Hemoglobin 29 pg (25-35) Mean Corpuscular Hemoglobin Concent 33 g/dL (31-37) Red Cell Distribution Width 14.2 % (11.5-14.5) Platelet Count 478 x10^3/uL (140-400) Neutrophils (%) (Auto) 81 % (31-73) Lymphocytes (%) (Auto) 15 % (24-48) Monocytes (%) (Auto) 2 % (0-9) Eosinophils (%) (Auto) 1 % (0-3) Basophils (%) (Auto) 1 % (0-3) Neutrophils # (Auto) 11.1 x10^3/uL (1.8-7.7) Lymphocytes # (Auto) 2.1 x10^3/uL (1.0-4.8) Monocytes # (Auto) 0.3 x10^3/uL (0.0-1.1) Eosinophils # (Auto) 0.1 x10^3/uL (0.0-0.7) Basophils # (Auto) 0.1 x10^3/uL (0.0-0.2) Sodium Level 137 mmol/L (136-145) Potassium Level 3.2 mmol/L (3.5-5.1) Chloride Level 100 mmol/L (98-107) Carbon Dioxide Level 27 mmol/L (21-32) Anion Gap 10 (6-14) Blood Urea Nitrogen 15 mg/dL (7-20) Creatinine 1.2 mg/dL (0.6-1.0) Estimated GFR (Cockcroft-Gault) 46.5 BUN/Creatinine Ratio 13 (6-20) Glucose Level 130 mg/dL (70-99) Calcium Level 8.3 mg/dL (8.5-10.1) Total Bilirubin 0.8 mg/dL (0.2-1.0) Aspartate Amino Transf (AST/SGOT) 21 U/L (15-37) Alanine Aminotransferase (ALT/SGPT) 24 U/L (14-59) Alkaline Phosphatase 141 U/L (46-116) Troponin I Quantitative < 0.017 ng/mL (0.000-0.055) HU-Ssd-C-Type Natriuretic Peptide 180 pg/mL (0-124) Total Protein 7.6 g/dL (6.4-8.2) Albumin 3.6 g/dL (3.4-5.0) Albumin/Globulin Ratio 0.9 (1.0-1.7) SARS-CoV-2 RNA (LUZ) Negative (Negative) Glucose (Fingerstick) 171 mg/dL (70-99) 155 mg/dL (70-99) Test 10/10/20 21:28 10/11/20 04:00 10/11/20 07:44 Glucose (Fingerstick) 185 mg/dL (70-99) 133 mg/dL (70-99) White Blood Count 14.0 x10^3/uL (4.0-11.0) Red Blood Count 4.70 x10^6/uL (3.50-5.40) Hemoglobin 13.9 g/dL (12.0-15.5) Hematocrit 41.9 % (36.0-47.0) Mean Corpuscular Volume 89 fL (79-100) Mean Corpuscular Hemoglobin 30 pg (25-35) Mean Corpuscular Hemoglobin Concent 33 g/dL (31-37) Red Cell Distribution Width 13.6 % (11.5-14.5) Platelet Count 448 x10^3/uL (140-400) Neutrophils (%) (Auto) 52 % (31-73) Lymphocytes (%) (Auto) 40 % (24-48) Monocytes (%) (Auto) 7 % (0-9) Eosinophils (%) (Auto) 1 % (0-3) Basophils (%) (Auto) 0 % (0-3) Neutrophils # (Auto) 7.2 x10^3/uL (1.8-7.7) Lymphocytes # (Auto) 5.6 x10^3/uL (1.0-4.8) Monocytes # (Auto) 1.0 x10^3/uL (0.0-1.1) Eosinophils # (Auto) 0.1 x10^3/uL (0.0-0.7) Basophils # (Auto) 0.0 x10^3/uL (0.0-0.2) Sodium Level 142 mmol/L (136-145) Potassium Level 3.5 mmol/L (3.5-5.1) Chloride Level 104 mmol/L (98-107) Carbon Dioxide Level 31 mmol/L (21-32) Anion Gap 7 (6-14) Blood Urea Nitrogen 19 mg/dL (7-20) Creatinine 1.2 mg/dL (0.6-1.0) Estimated GFR (Cockcroft-Gault) 46.5 Glucose Level 158 mg/dL (70-99) Calcium Level 8.3 mg/dL (8.5-10.1) Laboratory Tests Test 10/10/20 11:52 10/10/20 17:07 10/10/20 21:28 10/11/20 04:00 Glucose (Fingerstick) 171 mg/dL (70-99) 155 mg/dL (70-99) 185 mg/dL (70-99) White Blood Count 14.0 x10^3/uL (4.0-11.0) Red Blood Count 4.70 x10^6/uL (3.50-5.40) Hemoglobin 13.9 g/dL (12.0-15.5) Hematocrit 41.9 % (36.0-47.0) Mean Corpuscular Volume 89 fL (79-100) Mean Corpuscular Hemoglobin 30 pg (25-35) Mean Corpuscular Hemoglobin Concent 33 g/dL (31-37) Red Cell Distribution Width 13.6 % (11.5-14.5) Platelet Count 448 x10^3/uL (140-400) Neutrophils (%) (Auto) 52 % (31-73) Lymphocytes (%) (Auto) 40 % (24-48) Monocytes (%) (Auto) 7 % (0-9) Eosinophils (%) (Auto) 1 % (0-3) Basophils (%) (Auto) 0 % (0-3) Neutrophils # (Auto) 7.2 x10^3/uL (1.8-7.7) Lymphocytes # (Auto) 5.6 x10^3/uL (1.0-4.8) Monocytes # (Auto) 1.0 x10^3/uL (0.0-1.1) Eosinophils # (Auto) 0.1 x10^3/uL (0.0-0.7) Basophils # (Auto) 0.0 x10^3/uL (0.0-0.2) Sodium Level 142 mmol/L (136-145) Potassium Level 3.5 mmol/L (3.5-5.1) Chloride Level 104 mmol/L (98-107) Carbon Dioxide Level 31 mmol/L (21-32) Anion Gap 7 (6-14) Blood Urea Nitrogen 19 mg/dL (7-20) Creatinine 1.2 mg/dL (0.6-1.0) Estimated GFR (Cockcroft-Gault) 46.5 Glucose Level 158 mg/dL (70-99) Calcium Level 8.3 mg/dL (8.5-10.1) Test 10/11/20 07:44 Glucose (Fingerstick) 133 mg/dL (70-99) Allergies Allergies Coded Allergies Type Severity Reaction Last Updated Verified Sulfa (Sulfonamide Antibiotics) Allergy Intermediate 05/02/15 Yes coconut oil Allergy Intermediate COCONUT 08/10/13 Yes ibuprofen Allergy Intermediate 05/02/15 Yes tramadol Allergy Intermediate 04/25/20 Yes adhesive Adverse Reaction Mild Rash 08/10/13 Yes Disposition/Orders: D/C to Home Justicifation of Admission Dx: Justifications for Admission: Justification of Admission Dx: Yes Acute COPD Exacerbation: Acute COPD Exacerbation HERNESTO ALVARADO MD October 11, 2020 08:14
[2020-10-11] MEDS ORDERED: predniSONE 10 MG TABLET PO SCH (09:00)
[2020-10-11] MEDS: ATORVASTATIN CALCIUM 10 MG TABLET. PO SCH (09:27)
[2020-10-11] MEDS: ALPRAZolam 0.5 MG TABLET PO SCH ×2 (09:27→14:45)
[2020-10-11] MEDS: DULoxetine HCL 30 MG CAPSULE.DR PO SCH (09:28)
[2020-10-11] MEDS: PANTOPRAZOLE 40 MG TABLET.DR. PO SCH (09:28)
--- NOTE | 2020-10-11 10:51 | NUR ---
SW following. Discussed with RN. Discharge order for home with self care. No SW needs.
[2020-10-11 11:00] VITALS: BP 113/58
--- NOTE | 2020-10-11 11:25 | NUR ---
DISCHARGE INSTRUCTIONS GIVEN, QUESTIONS AND CONCERNS ANSWERED, PATIENT VERBALIZED UNDERSTANDING OF DISCHARGE INFORMATION INCLUDING TAKING ALL MEDICATIONS INSTRUCTED AND FOLLOWING UP WITH HER PRIMARY PROVIDER IN 1-2 WEEKS. ALL PERSONAL BELONGINGS GATHERED BY THE PATIENT AND PLACED IN BAGS FOR DISCHARGE.
[2020-10-11 15:00] VITALS: BP 129/80
--- NOTE | 2020-10-11 17:40 | NUR ---
PATIENT LEAVES THE UNIT PER W/C AND ACCOMPANIED BY COMMUNICATIONS TECH, EMOTIONAL SUPPORT GIVEN, FOLLOW UP APPOINTMENTS ENCOURAGED.
== END 2020-10-11 17:40 | disposition home or self-care (01) ==
LOC: ER 02:35 → 6 SOUTH 03:24
PROVIDERS: ADMIT Family Medicine; ATTEND Family Medicine
DX: J44.1 Chronic obstructive pulmonary disease with (acute) exacerbation (principal); Z20.822 Contact with and (suspected) exposure to COVID-19; K21.9 Gastro-esophageal reflux disease without esophagitis; F41.9 Anxiety disorder, unspecified; E78.5 Hyperlipidemia, unspecified; F17.200 Nicotine dependence, unspecified, uncomplicated; E87.6 Hypokalemia; E11.9 Type 2 diabetes mellitus without complications; D72.829 Elevated white blood cell count, unspecified; Z79.899 Other long term (current) drug therapy
CPT/HCPCS: 36415; 71045; 80048; 80053; 82962; 83880; 84484; 85025; 93005; 94640; 94760; 96374; 99285; G0378; J2930; J7512; J7613; U0003; U0005; G0379